=== PATIENT | male | born 1965 | race Caucasian/White ===

== ENCOUNTER → 2016-10-25 | Outpatient (CLI) | payer BC ==
[2016-10-25 14:21] LABS: ALBUMIN/GLOBULIN RATIO 1.11 (1.00-1.93); ALKALINE PHOSPHATASE 78 U/L (45-117); ALT/SGPT 46 U/L (12-78); ANION GAP 8 MEQ/L (8-16); AST/SGOT 31 U/L (15-37); BILIRUBIN,TOTAL 0.8 MG/DL (0.2-1.0); BLOOD UREA NITROGEN 16 MG/DL (7-18); CALCIUM LEVEL 9.2 MG/DL (8.5-10.1); CARBON DIOXIDE LEVEL 26 MEQ/L (21-32); CHLORIDE LEVEL 107 MEQ/L (98-107); CREATININE FOR GFR 1.04 MG/DL (0.70-1.30); GLOMERULAR FILTRATION RATE > 60.0 (>56); GLUCOSE, FASTING 93 MG/DL (70-105); POTASSIUM SERUM 4.3 MEQ/L (3.5-5.1); SODIUM LEVEL 141 MEQ/L (136-145); TOTAL PROTEIN 7.6 GM/DL (6.4-8.2)
[2016-10-25 14:27] LABS: BASO % 0.6 % (0.0-1.0); EOS # 0.3 K/mm3 (0.0-0.50); EOS % 3.7 % (0.0-3.0); LARGE UNSTAINED CELL # 0.3 K/mm3 (0.0-0.4); LARGE UNSTAINED CELL % 3.1 % (0.0-4.0); LYMPH % 25.3 % (24.0-44.0); MEAN CORPUSCULAR HEMOGLOBIN 31.5 pg (27.0-33.0); MEAN CORPUSCULAR HGB CONC 34.3 g/dl (32.0-36.5); MEAN CORPUSCULAR VOLUME 91.7 fl (80.0-96.0); MONO # 0.5 K/mm3 (0.0-0.8); MONO % 5.7 % (0.0-5.0); NEUTROPHILS % 61.6 % (36.0-66.0); PLATELET COUNT, AUTOMATED 283 k/mm3 (150-450); RED CELL DISTRIBUTION WIDTH 12.4 % (11.5-14.5); WHITE BLOOD COUNT 8.1 K/mm3 (4.0-10.0)
--- NOTE | 2016-10-25 15:07 | REP ---
ULTRASOUND RIGHT LOWER QUADRANT: Real-time sonographic evaluation of the right lower quadrant performed to evaluation for possible appendicitis. The appendix could not be visualized. Peristalsing bowel is seen in the right lower quadrant. No definite fluid collection is seen. IMPRESSION: The appendix could not be visualized. I cannot exclude appendicitis. If evaluation of the appendix is needed, then a CT scan of the abdomen and pelvis should be performed. Signed by Nirav Lopez MD 10/26/2016 12:39 P
== END ==
LOC: M LAB 13:30
PROVIDERS: ATTEND Physician Assistant
DX: R10.31 Right lower quadrant pain (principal)

== ENCOUNTER → 2016-10-26 | Outpatient (CLI) | payer BC ==
[~2016-10-26] MED LIST: GASTROGRAFIN SOLUTION 30ML (Q9963) As Ordered ONE; ISOVUE-370 76% 100ML VIAL (Q9967) As Ordered ONE
--- NOTE | 2016-10-26 12:33 | REP ---
CT study of the abdomen and pelvis with IV and oral contrast: History: Right lower quadrant pain. CT contrast dose: 100 ml of Isovue 370 is administered intravenously by auto injector. 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 The lung bases are essentially clear. No pleural effusion is seen. There is diffuse mild fatty infiltration of the liver with some fat sparing near the gallbladder. No focal hepatic lesion is seen. No adrenal lesion is observed. The spleen is unremarkable. No pancreatic or gallbladder abnormality is observed. The kidneys enhance symmetrically and are morphologically intact. No retroperitoneal mass or adenopathy is seen. A normal caliber aorta is seen. A normal appendix is seen coursing medially behind the cecum. Terminal ileum is unremarkable. There is diverticulosis affecting the sigmoid, descending and splenic flexure segments of the colon. There is no CT evidence of diverticulitis seen. Urinary bladder, prostate and seminal vesicles are unremarkable. Bone window settings demonstrate degenerative disc changes in the lumbar spine at 2-3 and 1-2 levels. No bony destructive lesion is appreciated. Impression: Left colonic diverticulosis without CT evidence of diverticulitis. Normal appendix seen. No acute intra-abdominal abnormality. Mild fatty infiltration of the liver. Signed by Anthony Fair MD 10/26/2016 07:25 P
== END ==
LOC: M RAD 09:14
PROVIDERS: ATTEND Physician Assistant
DX: R10.31 Right lower quadrant pain (principal); K57.30 Diverticulosis of large intestine without perforation or abscess without bleeding; K76.0 Fatty (change of) liver, not elsewhere classified
CPT/HCPCS: 74177; Q9963; Q9967

== ENCOUNTER → 2017-08-29 | Outpatient (CLI) | payer BC ==
--- NOTE | 2017-08-30 07:25 | REP ---
THORACIC SPINE: CLINICAL: Chronic back pain. TECHNIQUE: AP and lateral views of the thoracic spine. FINDINGS: Alignment and kyphosis maintained. Vertebral bodies intact. No acute fracture/compression injury or subluxation. No significant degenerative changes. IMPRESSION: Normal age appropriate thoracic spine radiograph series. Signed by Raymond Augustine MD 08/30/2017 07:41 A
--- NOTE | 2017-08-30 08:58 | REP ---
LUMBOSACRAL SPINE: CLINICAL: Chronic lower back pain. TECHNIQUE: AP lateral, bilateral oblique and coned down views of the lumbosacral spine. FINDINGS: Moderate to early advanced multilevel degenerative changes are appreciated. Findings include endplate sclerosis/heterogeneity with disc space narrowing as well as marginal spurring and hypertrophic facet changes. Alignment is maintained. There is no evidence for acute fracture/compression injury or subluxation. IMPRESSION: Moderate to early advanced multilevel degenerative changes. No acute fracture/compression injury or subluxation. Signed by Raymond Augustine MD 08/30/2017 07:41 A
== END ==
LOC: M ADAMS 15:32
PROVIDERS: ATTEND Physician Assistant Medical
DX: M51.37 Other intervertebral disc degeneration, lumbosacral region (principal); G89.29 Other chronic pain

== ENCOUNTER → 2017-09-25 | Outpatient (CLI) | payer BC | LOC: M CARPUL 14:45 | DX: R60.1 Generalized edema (principal); R94.31 Abnormal electrocardiogram [ECG] [EKG] | CPT/HCPCS: 93306 ==

== ENCOUNTER → 2018-01-23 | Outpatient (REF) | payer BC | LOC: M SFHCADAM 01-24 18:45 | DX: L08.9 Local infection of the skin and subcutaneous tissue, unspecified (principal) | CPT/HCPCS: 87186 ==

== ENCOUNTER → 2018-01-31 | Outpatient (CLI) | payer BC | LOC: M PAIN 09:30 | DX: M51.26 Other intervertebral disc displacement, lumbar region (principal); M54.16 Radiculopathy, lumbar region; M46.96 Unspecified inflammatory spondylopathy, lumbar region; E78.1 Pure hyperglyceridemia; E66.01 Morbid (severe) obesity due to excess calories; Z68.37 Body mass index [BMI] 37.0-37.9, adult; Z79.899 Other long term (current) drug therapy | CPT/HCPCS: G0463 ==

== ENCOUNTER → 2018-02-11 | Outpatient (CLI) | payer BC ==
[~2018-02-11] MED LIST changes: -GASTROGRAFIN SOLUTION 30ML (Q9963) As Ordered ONE; -ISOVUE-370 76% 100ML VIAL (Q9967) As Ordered ONE; +ISOVUE-M 300 61% 15ML VIAL (Q9967) As Ordered; +LIDOCAINE 1% SDV INJ 30 ML VIAL As Ordered; +diazePAM 5 MG TAB As Ordered; +methylPREDNISolone SUSP 40 MG/ML (DEPO-medrol) VIAL (J1030) As Ordered; +oxyCODONE 5MG TAB As Ordered
== END ==
LOC: M PAIN 08:45
DX: G89.29 Other chronic pain (principal); M51.16 Intervertebral disc disorders with radiculopathy, lumbar region; E78.1 Pure hyperglyceridemia; E66.01 Morbid (severe) obesity due to excess calories; Z68.37 Body mass index [BMI] 37.0-37.9, adult; Z79.899 Other long term (current) drug therapy
CPT/HCPCS: J1030

== ENCOUNTER → 2018-03-13 | Outpatient (CLI) | payer BC | LOC: M PAIN 08:45 | DX: M51.26 Other intervertebral disc displacement, lumbar region (principal); M54.16 Radiculopathy, lumbar region; M46.96 Unspecified inflammatory spondylopathy, lumbar region; E78.1 Pure hyperglyceridemia; E66.01 Morbid (severe) obesity due to excess calories; Z68.38 Body mass index [BMI] 38.0-38.9, adult; Z79.899 Other long term (current) drug therapy | CPT/HCPCS: G0463 ==

== ENCOUNTER → 2018-04-18 | Outpatient (CLI) | payer BC | LOC: M PAIN 08:30 | DX: M47.816 Spondylosis without myelopathy or radiculopathy, lumbar region (principal); M51.26 Other intervertebral disc displacement, lumbar region; E78.1 Pure hyperglyceridemia; Z79.899 Other long term (current) drug therapy | CPT/HCPCS: G0463 ==

== ENCOUNTER → 2018-05-07 | Outpatient (CLI) | payer BC | LOC: M PAIN 08:30 | DX: G89.29 Other chronic pain (principal); M51.16 Intervertebral disc disorders with radiculopathy, lumbar region; E78.1 Pure hyperglyceridemia; J30.2 Other seasonal allergic rhinitis; E66.01 Morbid (severe) obesity due to excess calories; Z68.35 Body mass index [BMI] 35.0-35.9, adult; Z79.899 Other long term (current) drug therapy | CPT/HCPCS: J1030 ==

== ENCOUNTER → 2018-05-23 | Outpatient (CLI) | payer BC | LOC: M PAIN 08:30 | DX: M47.816 Spondylosis without myelopathy or radiculopathy, lumbar region (principal); M51.26 Other intervertebral disc displacement, lumbar region; M54.16 Radiculopathy, lumbar region; E78.1 Pure hyperglyceridemia; J30.2 Other seasonal allergic rhinitis; E66.01 Morbid (severe) obesity due to excess calories; Z68.36 Body mass index [BMI] 36.0-36.9, adult; Z79.899 Other long term (current) drug therapy | CPT/HCPCS: G0463 ==

== ENCOUNTER → 2018-07-03 | Outpatient (CLI) | payer BC ==
[~2018-07-03] MED LIST changes: +BUPIVACAINE HCL 0.25% 30 ML VIAL As Ordered; -diazePAM 5 MG TAB As Ordered; -methylPREDNISolone SUSP 40 MG/ML (DEPO-medrol) VIAL (J1030) As Ordered; -oxyCODONE 5MG TAB As Ordered
== END ==
LOC: M PAIN 10:15
DX: G89.29 Other chronic pain (principal); M47.816 Spondylosis without myelopathy or radiculopathy, lumbar region; M47.817 Spondylosis without myelopathy or radiculopathy, lumbosacral region; E78.1 Pure hyperglyceridemia; J30.2 Other seasonal allergic rhinitis; Z79.899 Other long term (current) drug therapy
CPT/HCPCS: Q9967

== ENCOUNTER → 2018-07-24 | Outpatient (CLI) | payer BC | LOC: M PAIN 09:15 | DX: M47.816 Spondylosis without myelopathy or radiculopathy, lumbar region (principal); M47.817 Spondylosis without myelopathy or radiculopathy, lumbosacral region; E78.1 Pure hyperglyceridemia; J30.2 Other seasonal allergic rhinitis; Z79.899 Other long term (current) drug therapy | CPT/HCPCS: G0463 ==

== ENCOUNTER → 2018-08-19 | Outpatient (CLI) | payer BC | LOC: M PAIN 11:15 | DX: G89.29 Other chronic pain (principal); M47.816 Spondylosis without myelopathy or radiculopathy, lumbar region; M47.817 Spondylosis without myelopathy or radiculopathy, lumbosacral region; E78.1 Pure hyperglyceridemia; J30.2 Other seasonal allergic rhinitis; E66.01 Morbid (severe) obesity due to excess calories; Z68.36 Body mass index [BMI] 36.0-36.9, adult; Z79.899 Other long term (current) drug therapy | CPT/HCPCS: Q9967 ==

== ENCOUNTER → 2018-10-09 | Outpatient (CLI) | payer BC ==
[~2018-10-09] MED LIST changes: +ADVI200T PO; -BUPIVACAINE HCL 0.25% 30 ML VIAL As Ordered; -ISOVUE-M 300 61% 15ML VIAL (Q9967) As Ordered; -LIDOCAINE 1% SDV INJ 30 ML VIAL As Ordered; +LISI20TA3 PO; +MELO15TA28 PO; +[UNRECOGNIZED DRUG - CODE] PO; +[UNRECOGNIZED DRUG - OTHER] PO
--- NOTE | 2018-10-24 01:47 | ECWPNPC ---
PATIENT NAME: ROOSEVELT WATKINS : 1965 GENDER: MALE VISIT DATE: 10/09/2018 DISCHARGE DATE: 10/09/18 1123 VISIT LOCKED DATE TIME: PHYSICIAN: RITA ANNA RESOURCE: RITA ANNA REASON FOR APPOINTMENT 1. SW PT-POST PROC HISTORY OF PRESENT ILLNESS HISTORY OF PRESENT ILLNESS: HERE FOR POST PROCEDURE F/U.HAD RIGHT L4/5-L5/S1 DIAGNOSTIC BLOCK #2 ON 08-19-18.HAD APPROXIMATLEY 24HRS OF IMPROVEMENT POST PROCEDURE.RATING PAIN VAS 7/10.PAIN IS ACROSS LOW BACK AND DESCRIBED CONSTANT,ACHING AND STABBING. PAIN THE PATIENT DESCRIBES THE PAIN... FALL RISK SCREENING: SCREENING :NO FALLS IN THE PAST YEAR CURRENT MEDICATIONS TAKING LISINOPRIL-HYDROCHLOROTHIAZIDE 20-25 MG TABLET 1 TABLET ORALLY ONCE A DAY TAKING MELOXICAM 15 MG TABLET 1 TABLET ORALLY ONCE A DAY TAKING ADVIL 200 MG TABLET 2 TABLET WITH FOOD OR MILK NEEDED ORALLY BID MEDICATION LIST REVIEWED AND RECONCILED WITH THE PATIENT PAST MEDICAL HISTORY MORBID OBESITY 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, NL T SPINE 09/08 X RAYS 10/10 ECHO NL EF, TRACE MR, MILDLY DILATED LA, ELEVATED CVP, IVC MILDLY ENLARGED HYPERTRIGLYCERIDEMIA DDD HAYFEVER ALLERGIES ENVIRONMENTAL: NASAL CONGESTION, ITCHY EYES, SNEEZING: ALLERGY SURGICAL HISTORY X5 R KNEE ACL,ARTHROSCOPIC BACK INJECTIONS X3 FAMILY HISTORY FATHER: ALIVE 79 YRS, HTN, HEARING LOSS MOTHER: ALIVE 76 YRS, UNKNOWN SIBLINGS: ALIVE, YOUNGEST BROTHER - GB ISSUES YOUNGER BROTHER - MILD STROKE DAUGHTER(S): ALIVE, 11/12/1990 - HEALTHY 11/07/2001 - HEALTHY 2 BROTHER(S) . 2DAUGHTER(S) - HEALTHY. OLDEST DAUGHTER - CHRON'S DISEASE _ _HAD BOWEL RESECTION. SOCIAL HISTORY GENERAL: TOBACCO USE ARE YOU A:NONSMOKER LUNG CANCER SCREENING SMOKING STATUS:NON SMOKER BMI CARE GOAL FOLLOW-UP ABOVE NORMAL BMI FOLLOW-UPGIVING ENCOURAGEMENT TO EXERCISE ALCOHOL SCREENING DID YOU HAVE A DRINK CONTAINING ALCOHOL IN THE PAST YEAR?YES HOW OFTEN DID YOU HAVE SIX OR MORE DRINKS ON ONE OCCASION IN THE PAST YEAR?NEVER (0 POINTS) HOW MANY DRINKS DID YOU HAVE ON A TYPICAL DAY WHEN YOU WERE DRINKING IN THE PAST YEAR?3 OR 4 (1 POINT) HOW OFTEN DID YOU HAVE A DRINK CONTAINING ALCOHOL IN THE PAST YEAR?MONTHLY OR LESS (1 POINT) POINTS2 INTERPRETATIONNEGATIVE RECREATIONAL DRUG USE DRUG USE?NO CAFFEINE CAFFEINE USE?YES HOW OFTEN AND HOW MUCH? 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 MARITAL STATUS: . OTHERS AT HOME: NONE. PAIN CLINIC PFS, CLERGY, PUBLIC HEALTH REFERRALS PFS REFERRAL NEEDED?NO CLERGY REFERRAL NEEDED?NO PUBLIC HEALTH REFERRAL NEEDED?NO WAS THE PROVIDER NOTIFIED OF ANY PERTINENT INFO? N/A HAS THE PATIENT BEEN EDUCATED REGARDING HIS/HER PLAN OF CARE?YES USING HEATING PAD HAS THE PATIENT BEEN EDUCATED REGARDING PAIN, THE RISK FOR PAIN, THE IMPORTANCE OF EFFECTIVE PAIN MANAGEMENT, AND THE PAIN ASSESSMENT PROCESS?YES ADVANCE DIRECTIVE ADVANCE DIRECTIVE DISCUSSED WITH PATIENT:YES PT HAS NO ADVANCED DIRECTIVESM DECLINED INFORMATION, ASSISTANCE OFFERED IN FILLING HCP OUT, DECLINED LAS REVIEWED WITH PATIENT 07/24/18 0935 JSREVIEWED WITH PATIEBT 08/19/18 1211 LAS. HOSPITALIZATION/MAJOR DIAGNOSTIC PROCEDURE DENIES PAST HOSPITALIZATION REVIEW OF SYSTEMS REVIEWED BY: PROVIDER: RITA FLYNN . CONSTITUTIONAL: ANY CHANGE IN YOUR MEDICAL CONDITION? NO . CHILLS NO . FEVER NO . INFECTION: DO YOU HAVE NEW INFECTIONS? NO . DO YOU HAVE HISTORY OF MRSA? NO . MUSCULOSKELETAL: ANY NEW PATTERNS OF PAIN OR NUMBNESS? NO . GASTROENTEROLOGY: ANY NEW CHANGE IN BOWEL CONTROL? NO . GENITOURINARY: ANY NEW CHANGE IN BLADDER CONTROL? NO . IS THERE A CHANCE YOU COULD BE ? NO . HEMATOLOGY/LYMPH: DO YOU TAKE ANY BLOOD THINNERS? (FOR EXAMPLE- COUMADIN, PLAVIX, AGGRENOX, PLATEL, PRADAXA, OR XARELTO) NO . WHEN WAS YOUR LAST DOSE? DATE: TIME: . NEUROLOGY: HAVE YOU FALLEN IN THE PAST 12 MONTHS? NO . ANY NEW EXTREMITY NUMBNESS OR WEAKNESS? NO . CARDIOLOGY: DO YOU HAVE A PACEMAKER OR DEFIBRILLATOR? NO . RESPIRATORY: HAVE YOU BEEN SICK IN THE PAST WEEK? YES, STOMACHE BUG RESOLVED . FEVER NO . FLU LIKE SYMPTOMS? NO . COUGH NO . INTEGUMENTARY: DO YOU HAVE ANY RASHES OR OPEN SORES? NO . ALLERGIC/IMMUNO: ARE YOU ALLERGIC TO IV DYE? NO . ANY NEW ALLERGIES? NO . PSYCHIATRIC: DO YOU HAVE THOUGHTS OF HURTING YOURSELF OR SOMEONE ELSE? NO . ARE YOU ABUSED, NEGLECTED, OR IN AN UNSAFE ENVIRONMENT? NO . ENDOCRINOLOGY: ARE YOU DIABETIC? NO . OTHER: DO YOU NEED ANY PRESCRIPTIONS? NO . IF YES, PLEASE LIST: ____ . ANY NEW PROBLEMS WITH YOUR MEDICATIONS? NO . WHEN DID YOU LAST EAT? ____ . WHEN DID YOU LAST DRINK? ____ . WHAT DID YOU LAST DRINK? ____ . NAME OF PERSON DRIVING YOU HOME? ____ . DO YOU HAVE ANY OTHER QUESTIONS OR CONCERNS NO . VITAL SIGNS WT 262.6 LBS, HT 71", BMI 36.62 INDEX, BP 149/80 MM HG, HR 80 /MIN, RR 16 /MIN, TEMP 98.9 F, OXYGEN SAT % 96%, NA INITIALS SC 11:03. EXAMINATION GENERAL EXAMINATION: GENERAL APPEARANCE:AWAKE,ALERT ,PLEAASANT . PSYCHAFFECT NORMAL . LUNGS:LUNG LOPEZ ARE CLEAR TO AUSCULTATION BILATERALLY. GOOD MOVEMENT OF AIR . HEART:S1, S2 IN A REGULAR RATE AND RHYTHM. NO SIGNIFICANT MURMURS, RUBS OR GALLOPS NOTED . LUMBAR SACRAL SPINEPALPATION:TENDER OVER BILAT. L4/5-L5/S1 LUMBAR FACETS WITH FACET LOADING.. ASSESSMENTS OSTEOARTHRITIS OF SPINE WITH RADICULOPATHY, LUMBAR REGION - M47.26 (PRIMARY) TREATMENT OSTEOARTHRITIS OF SPINE WITH RADICULOPATHY, LUMBAR REGION NOTES: RIGHT L4/5-L5/S1 RF. PROCEDURE CODES FA211 ESTABILISHED PATIENT [facility]AC[facility] CHARGE DISPOSITION & COMMUNICATION FOLLOW UP POST (REASON: RIGHT L4/5-L5/S1 RF) ELECTRONICALLY SIGNED BY RINA WALLACE ON 10/23/2018 AT 03:59 PM EST DISCLAIMER : THIS IS A VISIT SUMMARY EXTRACTED FROM THE [employer] CHART. IT IS NOT A COPY OF THE [employer] PROGRESS NOTE. NATE
== END ==
LOC: M PAIN 10:45
PROVIDERS: ATTEND Nurse Practitioner Family
DX: M47.26 Other spondylosis with radiculopathy, lumbar region (principal); J30.2 Other seasonal allergic rhinitis; E66.01 Morbid (severe) obesity due to excess calories; Z68.36 Body mass index [BMI] 36.0-36.9, adult; Z79.899 Other long term (current) drug therapy

== ENCOUNTER 2018-10-10 07:14 | Day surgery (SDC) | payer BC ==
[~2018-10-10] VITALS: Ht 180.3 cm; Wt 122.5 kg
[~2018-10-10 07:14] MED LIST changes: +LIDOCAINE 2% INJ 100 MG/5 ML SDV (FOR ANES.) As Ordered ONE; +PROPOFOL 200 MG/20 ML VIAL As Ordered ONE
--- NOTE | 2018-10-10 08:46 | ROOR ---
Patient Name: Anthony Ellsworth Procedure Date: 10/10/2018 8:25 AM Date of : 1965 Age: 52 Room: [facility] Gender: Male Note Status: Finalized Procedure: Colonoscopy Indications: Screening for colorectal malignant neoplasm Providers: Michael PETTY MD Referring MD: LESLI Preciado Requesting Provider: Medicines: Monitored Anesthesia Care Complications: No immediate complications. Procedure: Pre-Anesthesia Assessment: - The heart rate, respiratory rate, oxygen saturations, blood pressure, adequacy of pulmonary ventilation, and response to care were monitored throughout the procedure. The Colonoscope was introduced through the anus and advanced to the terminal ileum, with identification of the appendiceal orifice and IC valve. The colonoscopy was performed without difficulty. The patient tolerated the procedure well. The quality of the bowel preparation was good. Findings: The perianal and digital rectal examinations were normal. Small Internal Hemorrhoids. The entire examined colon appeared normal on direct and retroflexion views. Impression: - Small Internal Hemorrhoids. - The entire examined colon is normal on direct and retroflexion views. - No specimens collected. Recommendation: - Repeat colonoscopy in 10 years for screening purposes. Michael Petty MD Michael PETTY MD 10/10/2018 8:45:56 AM This report has been signed electronically. Number of Addenda: 0 Note Initiated On: 10/10/2018 8:25 AM Estimated Blood Loss: Estimated blood loss: none.
[2018-10-10 09:10] VITALS: BP 128/82
[2018-10-10] MEDS ORDERED: NS 1,000 ML IV ONE (11:00)
== END 2018-10-10 09:16 | disposition home or self-care (01) ==
LOC: M OPP 07:14
PROVIDERS: ATTEND Internal Medicine Gastroenterology
DX: Z12.11 Encounter for screening for malignant neoplasm of colon (principal); K64.8 Other hemorrhoids; I10 Essential (primary) hypertension; Z79.899 Other long term (current) drug therapy

== ENCOUNTER → 2018-10-30 | Outpatient (CLI) | payer BC ==
[~2018-10-30] MED LIST changes: +BUPIVACAINE HCL 0.25% 30 ML VIAL As Ordered ONE; +LIDOCAINE 1% SDV INJ 30 ML VIAL As Ordered ONE; -LIDOCAINE 2% INJ 100 MG/5 ML SDV (FOR ANES.) As Ordered ONE; -PROPOFOL 200 MG/20 ML VIAL As Ordered ONE; +TRIAMCINOLONE ACETONIDE SUSP 40 MG/ML VIAL (J3301) As Ordered ONE
--- NOTE | 2018-11-08 23:47 | ECWPNPC ---
PATIENT NAME: ROOSEVELT WATKINS : 1965 GENDER: MALE VISIT DATE: 10/30/2018 DISCHARGE DATE: 10/30/18 1232 VISIT LOCKED DATE TIME: PHYSICIAN: MAISHA KOHLI MD RESOURCE: MAISHA KOHLI MD REASON FOR APPOINTMENT 1. RIGHT L4/5-L5/S1 RF HISTORY OF PRESENT ILLNESS HISTORY OF PRESENT ILLNESS: PAIN THE PATIENT DESCRIBES THE PAIN... FALL RISK SCREENING: SCREENING :NO FALLS IN THE PAST YEAR CURRENT MEDICATIONS TAKING ADVIL 200 MG TABLET 2 TABLET WITH FOOD OR MILK NEEDED ORALLY BID, NOTES: NONE IN A WEEK TAKING FUROSEMIDE 20 MG TABLET 1 TABLET ORALLY ONCE A DAY, NOTES: NOT STARTED YET TAKING LISINOPRIL-HYDROCHLOROTHIAZIDE 20-25 MG TABLET 1 TABLET ORALLY ONCE A DAY, NOTES: 10/30/18 0630 TAKING MELOXICAM 15 MG TABLET 1 TABLET ORALLY ONCE A DAY, NOTES: 10/29/18 0300 MEDICATION LIST REVIEWED AND RECONCILED WITH THE PATIENT PAST MEDICAL HISTORY MORBID OBESITY 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, NL T SPINE 09/08 X RAYS 10/10 ECHO NL EF, TRACE MR, MILDLY DILATED LA, ELEVATED CVP, IVC MILDLY ENLARGED HYPERTRIGLYCERIDEMIA DDD HAYFEVER ALLERGIES ENVIRONMENTAL: NASAL CONGESTION, ITCHY EYES, SNEEZING: ALLERGY SURGICAL HISTORY X5 R KNEE ACL,ARTHROSCOPIC BACK INJECTIONS X3 COLONOSCOPY 10/11/18 FAMILY HISTORY FATHER: ALIVE 79 YRS, HTN, HEARING LOSS, DIAGNOSED WITH HYPERTENSION MOTHER: ALIVE 76 YRS, UNKNOWN SIBLINGS: ALIVE, YOUNGEST BROTHER - GB ISSUES YOUNGER BROTHER - MILD STROKE DAUGHTER(S): ALIVE, 11/12/1990 - HEALTHY 11/07/2001 - HEALTHY MATERNAL AUNT: DIAGNOSED WITH CANCER 2 BROTHER(S) . 2DAUGHTER(S) - HEALTHY. OLDEST DAUGHTER - CHRON'S DISEASE _ _HAD BOWEL RESECTION. SOCIAL HISTORY GENERAL: TOBACCO USE ARE YOU A:NONSMOKER LUNG CANCER SCREENING SMOKING STATUS:NON SMOKER BMI CARE GOAL FOLLOW-UP ABOVE NORMAL BMI FOLLOW-UPGIVING ENCOURAGEMENT TO EXERCISE ALCOHOL SCREENING DID YOU HAVE A DRINK CONTAINING ALCOHOL IN THE PAST YEAR?YES HOW OFTEN DID YOU HAVE SIX OR MORE DRINKS ON ONE OCCASION IN THE PAST YEAR?NEVER (0 POINTS) HOW MANY DRINKS DID YOU HAVE ON A TYPICAL DAY WHEN YOU WERE DRINKING IN THE PAST YEAR?3 OR 4 (1 POINT) HOW OFTEN DID YOU HAVE A DRINK CONTAINING ALCOHOL IN THE PAST YEAR?MONTHLY OR LESS (1 POINT) POINTS2 INTERPRETATIONNEGATIVE RECREATIONAL DRUG USE DRUG USE?NO CAFFEINE CAFFEINE USE?YES HOW OFTEN AND HOW MUCH? OCCASIONALLY SEXUAL HX HAD SEX IN THE LAST 12 MONTHS (VAGINAL, ORAL, OR ANAL)?YES WITHWOMEN ONLY USE PROTECTION?NO HAVE YOU EVER HAD AN STD?NO HIV / HEP-C SCREENING HIV TEST OFFERED TO PATIENT:YES DATE OFFERED:08/29/2017 TEST ACCEPTED:NO HEP-C TEST OFFERED TO PATIENT:YES DATE OFFERED:08/29/2017 REASON:PATIENT DECLINED PREVIOUSLY DONE TEST ACCEPTED:NO PREVIOUSLY DONE REASON:PATIENT DECLINED BROCHURE PROVIDED TO PATIENTYES WORSHIP [id number] JAINISM LANGUAGE LANGUAGES SPOKEN:[place] EDUCATION LEVEL OF EDUCATION:HIGH SCHOOL LEARNING BARRIERS / SPECIAL NEEDS BARRIERS TO LEARNING?NO HEARING IMPAIRED?NO VISION IMPAIRED?YES COGNITIVELY IMPAIRED?NO : CORRECTIVE LENSES FOR READING READINESS TO LEARN?YES LEARNING PREFERENCES?NO SPECIAL DEVICES?NO NAUMKEAG OPERATOR NEEDED?NO DOMESTIC VIOLENCE DO YOU FEEL SAFE IN YOUR ENVIRONMENT?YES 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 MARITAL STATUS: . OTHERS AT HOME: NONE. PAIN CLINIC PFS, CLERGY, PUBLIC HEALTH REFERRALS PFS REFERRAL NEEDED?NO CLERGY REFERRAL NEEDED?NO PUBLIC HEALTH REFERRAL NEEDED?NO WAS THE PROVIDER NOTIFIED OF ANY PERTINENT INFO? N/A HAS THE PATIENT BEEN EDUCATED REGARDING HIS/HER PLAN OF CARE?YES USING HEATING PAD HAS THE PATIENT BEEN EDUCATED REGARDING PAIN, THE RISK FOR PAIN, THE IMPORTANCE OF EFFECTIVE PAIN MANAGEMENT, AND THE PAIN ASSESSMENT PROCESS?YES ADVANCE DIRECTIVE ADVANCE DIRECTIVE DISCUSSED WITH PATIENT:YES PT HAS NO ADVANCED DIRECTIVESM DECLINED INFORMATION, ASSISTANCE OFFERED IN FILLING HCP OUT, DECLINED BV 10/30/18 REVIEWED WITH PATIENT 07/24/18 0935 JSREVIEWED WITH PATIEBT 08/19/18 1211 LASREVIEWED WITH PATIENT 10/30/18 0959 BV. HOSPITALIZATION/MAJOR DIAGNOSTIC PROCEDURE NO HOSPITALIZATION HISTORY. REVIEW OF SYSTEMS REVIEWED BY: PROVIDER: . CONSTITUTIONAL: ANY CHANGE IN YOUR MEDICAL CONDITION? NO . CHILLS NO . FEVER NO . INFECTION: DO YOU HAVE NEW INFECTIONS? NO . DO YOU HAVE HISTORY OF MRSA? NO . MUSCULOSKELETAL: ANY NEW PATTERNS OF PAIN OR NUMBNESS? NO . GASTROENTEROLOGY: ANY NEW CHANGE IN BOWEL CONTROL? NO . GENITOURINARY: ANY NEW CHANGE IN BLADDER CONTROL? NO . IS THERE A CHANCE YOU COULD BE ? NO . HEMATOLOGY/LYMPH: DO YOU TAKE ANY BLOOD THINNERS? (FOR EXAMPLE- COUMADIN, PLAVIX, AGGRENOX, PLATEL, PRADAXA, OR XARELTO) NO . WHEN WAS YOUR LAST DOSE? DATE: TIME: . NEUROLOGY: HAVE YOU FALLEN IN THE PAST 12 MONTHS? NO . ANY NEW EXTREMITY NUMBNESS OR WEAKNESS? NO . CARDIOLOGY: DO YOU HAVE A PACEMAKER OR DEFIBRILLATOR? NO . RESPIRATORY: HAVE YOU BEEN SICK IN THE PAST WEEK? NO . FEVER NO . FLU LIKE SYMPTOMS? NO . COUGH NO . INTEGUMENTARY: DO YOU HAVE ANY RASHES OR OPEN SORES? NO . ALLERGIC/IMMUNO: ARE YOU ALLERGIC TO IV DYE? NO . ANY NEW ALLERGIES? NO . PSYCHIATRIC: DO YOU HAVE THOUGHTS OF HURTING YOURSELF OR SOMEONE ELSE? NO . ARE YOU ABUSED, NEGLECTED, OR IN AN UNSAFE ENVIRONMENT? NO . ENDOCRINOLOGY: ARE YOU DIABETIC? NO . OTHER: DO YOU NEED ANY PRESCRIPTIONS? NO . IF YES, PLEASE LIST: ____ . ANY NEW PROBLEMS WITH YOUR MEDICATIONS? NO . WHEN DID YOU LAST EAT? 10/29/18 1800 . WHEN DID YOU LAST DRINK? 10/30/18 0630 . WHAT DID YOU LAST DRINK? WATER . NAME OF PERSON DRIVING YOU HOME? RAVEN . DO YOU HAVE ANY OTHER QUESTIONS OR CONCERNS NO . VITAL SIGNS WT 266.2 LBS, HT 71", BMI 37.12 INDEX, BP 175/93 MM HG, HR 73 /MIN, RR 18 /MIN, TEMP 96.7 F, OXYGEN SAT % 98%, NA INITIALS SC 09:49, REVIEWED BY: BV. ASSESSMENTS SPONDYLOSIS OF LUMBAR REGION WITHOUT MYELOPATHY OR RADICULOPATHY - M47.816 (PRIMARY) SPONDYLOSIS OF LUMBOSACRAL REGION WITHOUT MYELOPATHY OR RADICULOPATHY - M47.817 PROCEDURES PN RADIOFREQUENCY PRE PROCEDURE DIAGNOSES 1. LUMBAR SPONDYLOSIS. 2. LUMBOSACRAL SPONDYLOSIS POST PROCEDURE DIAGNOSES 1. LUMBAR SPONDYLOSIS. 2. LUMBOSACRAL SPONDYLOSIS PROCEDURE RIGHT L4-L5 AND RIGHT L5-S1 LUMBAR FACET RADIOFREQUENCY SURGEON DR. MAISHA KOHLI CAUSTIC PUMP OPERATOR NONE ANESTHESIA LOCAL PRE PROCEDURE REPORT THE PATIENT HAS HISTORY OF CHRONIC LOW BACK PAIN. I EVALUATE THE PATIENT AND REVIEWED THE CHART. I WENT OVER THE RISKS, ALTERNATIVES, AND BENEFITS ASSOCIATED WITH THIS PROCEDURE. THE PATIENT WOULD LIKE TO PROCEED AND GIVE CONSENT TO PERFORMED THE PROCEDURE. THE PATIENT DENIES UNEXPLAINABLE WEIGHT LOSS, FEVER, CHILLS, OR NEW CHANGES IN URINARY OR BOWEL CONTROL DESCRIPTION OF PROCEDURE THE PATIENT WAS BROUGHT TO THE PROCEDURE ROOM AND PLACED IN THE PRONE POSITION. THE LUMBOSACRAL AREA WAS CLEANED WITH CHLORAPREP SOLUTION AND DRAPED ASEPTICALLY. THE PROCEDURE WAS DONE UNDER STERILE CONDITIONS. I CHECKED LATERALITY AND THE LEVEL WHERE THE PROCEDURE WAS GOING TO BE PERFORMED WITH THE PATIENT AND THE SUPPORTING STAFF AT THE MOMENT OF THE TIME OUT IN THE PROCEDURE ROOM. UNDER FLUOROSCOPIC GUIDANCE, TARGETS WERE SELECTED AT THE INTERSECTION OF THE RIGHT TRANSVERSE PROCESS OF L4, L5 AND ALA OF S1 WITH ITS RESPECTIVE SUPERIOR ARTICULAR PROCESS. LIDOCAINE WAS USED TO NUMB THE SKIN AND THE SUBCUTANEOUS TISSUE BELOW IT. RADIOFREQUENCY NEEDLES 22-GAUGE 15 CM LONG WITH 10 MM ACTIVE CURVE TIP WERE ADVANCED UNDER FLUOROSCOPIC GUIDANCE AND FOLLOWING PATIENT FEEDBACK UNTIL THE TARGET AREA WAS REACHED. POSITION OF THE NEEDLES WAS VERIFIED WITH AP AND LATERAL VIEWS. AFTER PROPER POSITION OF THE NEEDLE WAS ACHIEVED, WE WORKED WITH THE RIGHT SELECTED MEDIAN BRANCHES OF L3, L4 AND THE DORSAL RAMI OF L5. WE MEASURED THE CORRESPONDING IMPEDANCES, SENSORY STIMULATION AND MOTOR RESPONSES INDICATED IN THE RADIOFREQUENCY WORKSHEET. POSITION OF THE NEEDLES WAS VERIFIED AGAIN WITH AP AND LATERAL VIEWS. LIDOCAINE 1%, 2 ML, WAS INJECTED AT EACH LEVEL. RADIOFREQUENCY WAS DONE AT EACH LEVEL AT 80 DEGREES FOR 90 SECONDS. AFTER RADIOFREQUENCY WAS DONE, THE PATIENT RECEIVED BUPIVACAINE 0.125% 1 CC WITH KENALOG 5 MG AT EACH SITE. THERE WAS NO EVIDENCE OF BLOOD, PARESTHESIA OR CEREBROSPINAL FLUID DURING THE PROCEDURE. THE PATIENT WAS SENT TO THE RECOVERY ROOM. THE PATIENT WAS MOVING THE EXTREMITIES AND DOING WELL. THERE WAS NO COMPLICATION DURING THE PROCEDURE. FLUOROSCOPY TIME WAS 33 SECONDS POST PROCEDURE NOTE THE PATIENT WILL BE SEEN IN A FOLLOW UP IN THE NEXT FEW WEEKS. INSTRUCTIONS WERE GIVEN, QUESTIONS WERE ANSWERED, AND THE PATIENT EXPRESSED UNDERSTANDING AND AGREES WITH THE PLAN. I, JEAN-PAUL PAULSON, DOCUMENTED THE ABOVE INFORMATION ACTING A SCRIBE FOR DR. KOHLI. I HAVE REVIEWED THE ABOVE DOCUMENT, WRITTEN BY JEAN-PAUL BAEZIBKeith AND I VERIFY THAT IT IS ACCURATE. DIAGNOSTIC IMAGING [facility] FLUORO GUIDE SPINE INJECTION (PAIN)[id number] PROCEDURE CODES 6045F RADXPS IN END [id number] PXD 31002 DESTROY LUMB/SAC F[place], [place]: [place] [address] DESTROY L/S FACET JNT ADDL, MODIFIERS: RT DISPOSITION & COMMUNICATION FOLLOW UP 3 WEEKS ELECTRONICALLY SIGNED BY MAISHA KOHLI MD, MD ON 11/08/2018 AT 07:30 PM EST DISCLAIMER : THIS IS A VISIT SUMMARY EXTRACTED FROM THE [employer] CHART. IT IS NOT A COPY OF THE [employer] PROGRESS NOTE. MTDD
== END ==
LOC: M PAIN 10:00
PROVIDERS: ATTEND Anesthesiology
DX: M47.816 Spondylosis without myelopathy or radiculopathy, lumbar region (principal); M47.817 Spondylosis without myelopathy or radiculopathy, lumbosacral region; E66.01 Morbid (severe) obesity due to excess calories; E78.1 Pure hyperglyceridemia; J30.1 Allergic rhinitis due to pollen; Z79.1 Long term (current) use of non-steroidal anti-inflammatories (NSAID); Z79.899 Other long term (current) drug therapy; Z68.37 Body mass index [BMI] 37.0-37.9, adult
CPT/HCPCS: 64635; 64636; J3301

== ENCOUNTER → 2018-10-30 | Outpatient (REF) | payer BC ==
[~2018-10-30] MED LIST changes: -BUPIVACAINE HCL 0.25% 30 ML VIAL As Ordered ONE; -LIDOCAINE 1% SDV INJ 30 ML VIAL As Ordered ONE; -TRIAMCINOLONE ACETONIDE SUSP 40 MG/ML VIAL (J3301) As Ordered ONE
[2018-10-30 13:00] LABS: BASO # 0.1 10^3/uL (0.0-0.2); BASO % 0.7 % (0.0-1.0); EOS # 0.4 10^3/uL (0.0-0.50); HEMATOCRIT 43.1 % (42.0-52.0); HEMOGLOBIN 14.5 g/dl (13.5-17.5); LYMPH # 2.6 10^3/uL (1.5-4.5); LYMPH % 29.6 % (24.0-44.0); MEAN CORPUSCULAR HGB CONC 33.6 g/dl (32.0-36.5); MEAN CORPUSCULAR VOLUME 92.3 fl (80.0-96.0); MONO # 0.7 10^3/uL (0.0-0.8); MONO % 8.4 % (0.0-5.0); NEUTROPHILS # 4.8 10^3/uL (1.8-7.7); NEUTROPHILS % 55.4 % (36.0-66.0); PLATELET COUNT, AUTOMATED 315 10^3/uL (150-450); RED BLOOD COUNT 4.67 10^6/uL (4.30-6.10); WHITE BLOOD COUNT 8.7 10^3/uL (4.0-10.0)
[2018-10-30 13:18] LABS: ALBUMIN 3.8 GM/DL (3.2-5.2); ALT/SGPT 41 U/L (12-78); BILIRUBIN,TOTAL 0.7 MG/DL (0.2-1.0); BLOOD UREA NITROGEN 19 MG/DL (7-18); CALCIUM LEVEL 9.5 MG/DL (8.5-10.1); CARBON DIOXIDE LEVEL 29 MEQ/L (21-32); CHLORIDE LEVEL 104 MEQ/L (98-107); CHOLESTEROL LEVEL 164 MG/DL (<200); CREATININE FOR GFR 1.14 MG/DL (0.70-1.30); GLOMERULAR FILTRATION RATE > 60.0 (>56); GLUCOSE, FASTING 95 MG/DL (70-100); HDL CHOLESTEROL 31 MG/DL (>40); NON-HDL-C 133 MG/DL; POTASSIUM SERUM 4.8 MEQ/L (3.5-5.1); SODIUM LEVEL 139 MEQ/L (136-145); TOTAL PROTEIN 7.1 GM/DL (6.4-8.2); TRIGLYCERIDES LEVEL 602 MG/DL (<150)
--- NOTE | 2018-10-30 16:28 | REP ---
Partial lumbar spine series: Six views . History: Injection procedure for pain. 33 seconds of fluoroscopy time is reported. Findings: A sequence of six fluoroscopically obtained last image hold procedural spot radiographs of the lumbar spine document needle position and contrast injection associated with injection procedure. Electronically Signed by Anthony Fair MD 10/30/2018 04:19 P
== END ==
LOC: M SFHCADAM 07:37
PROVIDERS: ATTEND Physician Assistant Medical
DX: I10 Essential (primary) hypertension (principal); M47.26 Other spondylosis with radiculopathy, lumbar region; E66.01 Morbid (severe) obesity due to excess calories

== ENCOUNTER → 2018-11-13 | Outpatient (CLI) | payer BC ==
--- NOTE | 2018-11-29 02:20 | ECWPNPC ---
PATIENT NAME: ROOSEVELT WATKINS : 1965 GENDER: MALE VISIT DATE: 11/13/2018 DISCHARGE DATE: 11/13/18 1237 VISIT LOCKED DATE TIME: PHYSICIAN: RITA ANNA RESOURCE: RITA ANNA REASON FOR APPOINTMENT 1. POST RF HISTORY OF PRESENT ILLNESS HISTORY OF PRESENT ILLNESS: HERE FOR POST PROEDURE F/U.HAD RIGHT RF ON 10/30/18.REPORTING MARKED IMPROVEMENT IN RIGHT LOW BACK PAIN.HAVING PERSISTENT LEFT LOW BACK PAIN.RATING PAIN VAS 7/10. PAIN THE PATIENT DESCRIBES THE PAIN... FALL RISK SCREENING: SCREENING : NO FALLS IN THE PAST YEAR. 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, NL T SPINE 09/08 X RAYS 10/10 ECHO NL EF, TRACE MR, MILDLY DILATED LA, ELEVATED CVP, IVC MILDLY ENLARGED HYPERTRIGLYCERIDEMIA DDD HAYFEVER ALLERGIES ENVIRONMENTAL: NASAL CONGESTION, ITCHY EYES, SNEEZING: ALLERGY SURGICAL HISTORY X5 R KNEE ACL,ARTHROSCOPIC BACK INJECTIONS X3 COLONOSCOPY 10/11/18 FAMILY HISTORY FATHER: ALIVE 79 YRS, HTN, HEARING LOSS, DIAGNOSED WITH HYPERTENSION MOTHER: ALIVE 76 YRS, UNKNOWN SIBLINGS: ALIVE, YOUNGEST BROTHER - GB ISSUES YOUNGER BROTHER - MILD STROKE DAUGHTER(S): ALIVE, 11/12/1990 - HEALTHY 11/07/2001 - HEALTHY MATERNAL AUNT: DIAGNOSED WITH CANCER 2 BROTHER(S) . 2DAUGHTER(S) - HEALTHY. OLDEST DAUGHTER - CHRON'S DISEASE _ _HAD BOWEL RESECTION. SOCIAL HISTORY GENERAL: TOBACCO USE ARE YOU A:NONSMOKER LUNG CANCER SCREENING SMOKING STATUS:NON SMOKER BMI CARE GOAL FOLLOW-UP ABOVE NORMAL BMI FOLLOW-UPGIVING ENCOURAGEMENT TO EXERCISE ALCOHOL SCREENING DID YOU HAVE A DRINK CONTAINING ALCOHOL IN THE PAST YEAR?YES HOW OFTEN DID YOU HAVE SIX OR MORE DRINKS ON ONE OCCASION IN THE PAST YEAR?NEVER (0 POINTS) HOW MANY DRINKS DID YOU HAVE ON A TYPICAL DAY WHEN YOU WERE DRINKING IN THE PAST YEAR?3 OR 4 (1 POINT) HOW OFTEN DID YOU HAVE A DRINK CONTAINING ALCOHOL IN THE PAST YEAR?MONTHLY OR LESS (1 POINT) POINTS2 INTERPRETATIONNEGATIVE RECREATIONAL DRUG USE DRUG USE?NO CAFFEINE CAFFEINE USE?YES HOW OFTEN AND HOW MUCH? OCCASIONALLY SEXUAL HX HAD SEX IN THE LAST 12 MONTHS (VAGINAL, ORAL, OR ANAL)?YES WITHWOMEN ONLY USE PROTECTION?NO HAVE YOU EVER HAD AN STD?NO HIV / HEP-C SCREENING HIV TEST OFFERED TO PATIENT:YES DATE OFFERED:08/29/2017 TEST ACCEPTED:NO HEP-C TEST OFFERED TO PATIENT:YES DATE OFFERED:08/29/2017 REASON:PATIENT DECLINED PREVIOUSLY DONE TEST ACCEPTED:NO PREVIOUSLY DONE REASON:PATIENT DECLINED BROCHURE PROVIDED TO PATIENTYES [employer] [id number] [employer] LANGUAGE LANGUAGES SPOKEN:SINGAPOREAN EDUCATION LEVEL OF EDUCATION:HIGH SCHOOL LEARNING BARRIERS / SPECIAL NEEDS BARRIERS TO LEARNING?NO HEARING IMPAIRED?NO VISION IMPAIRED?YES COGNITIVELY IMPAIRED?NO : CORRECTIVE LENSES FOR READING READINESS TO LEARN?YES LEARNING PREFERENCES?NO SPECIAL DEVICES?NO SHIP BOSS NEEDED?NO DOMESTIC VIOLENCE DO YOU FEEL SAFE IN YOUR ENVIRONMENT?YES 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 MARITAL STATUS: . OTHERS AT HOME: NONE. PAIN CLINIC PFS, CLERGY, PUBLIC HEALTH REFERRALS PFS REFERRAL NEEDED?NO CLERGY REFERRAL NEEDED?NO PUBLIC HEALTH REFERRAL NEEDED?NO WAS THE PROVIDER NOTIFIED OF ANY PERTINENT INFO? N/A HAS THE PATIENT BEEN EDUCATED REGARDING HIS/HER PLAN OF CARE?YES USING HEATING PAD HAS THE PATIENT BEEN EDUCATED REGARDING PAIN, THE RISK FOR PAIN, THE IMPORTANCE OF EFFECTIVE PAIN MANAGEMENT, AND THE PAIN ASSESSMENT PROCESS?YES ADVANCE DIRECTIVE ADVANCE DIRECTIVE DISCUSSED WITH PATIENT:YES PT HAS NO ADVANCED DIRECTIVESM DECLINED INFORMATION, ASSISTANCE OFFERED IN FILLING HCP OUT, DECLINED REVIEWED WITH PATIENT 07/24/18 0935 JSREVIEWED WITH PATIEBT 08/19/18 1211 LASREVIEWED WITH PATIENT 10/30/18 0959 BV. HOSPITALIZATION/MAJOR DIAGNOSTIC PROCEDURE DENIES PAST HOSPITALIZATION REVIEW OF SYSTEMS REVIEWED BY: PROVIDER: RITA FLYNN . CONSTITUTIONAL: ANY CHANGE IN YOUR MEDICAL CONDITION? NO . CHILLS NO . FEVER NO . INFECTION: DO YOU HAVE NEW INFECTIONS? NO . DO YOU HAVE HISTORY OF MRSA? NO . MUSCULOSKELETAL: ANY NEW PATTERNS OF PAIN OR NUMBNESS? NO . GASTROENTEROLOGY: ANY NEW CHANGE IN BOWEL CONTROL? NO . GENITOURINARY: ANY NEW CHANGE IN BLADDER CONTROL? NO . IS THERE A CHANCE YOU COULD BE ? NO . HEMATOLOGY/LYMPH: DO YOU TAKE ANY BLOOD THINNERS? (FOR EXAMPLE- COUMADIN, PLAVIX, AGGRENOX, PLATEL, PRADAXA, OR XARELTO) NO . WHEN WAS YOUR LAST DOSE? DATE: TIME: . NEUROLOGY: HAVE YOU FALLEN IN THE PAST 12 MONTHS? NO . ANY NEW EXTREMITY NUMBNESS OR WEAKNESS? NO . CARDIOLOGY: DO YOU HAVE A PACEMAKER OR DEFIBRILLATOR? NO . RESPIRATORY: HAVE YOU BEEN SICK IN THE PAST WEEK? NO . FEVER NO . FLU LIKE SYMPTOMS? NO . COUGH NO . INTEGUMENTARY: DO YOU HAVE ANY RASHES OR OPEN SORES? NO . ALLERGIC/IMMUNO: ARE YOU ALLERGIC TO IV DYE? NO . ANY NEW ALLERGIES? NO . PSYCHIATRIC: DO YOU HAVE THOUGHTS OF HURTING YOURSELF OR SOMEONE ELSE? NO . ARE YOU ABUSED, NEGLECTED, OR IN AN UNSAFE ENVIRONMENT? NO . ENDOCRINOLOGY: ARE YOU DIABETIC? NO . OTHER: DO YOU NEED ANY PRESCRIPTIONS? NO . IF YES, PLEASE LIST: ____ . ANY NEW PROBLEMS WITH YOUR MEDICATIONS? NO . WHEN DID YOU LAST EAT? ____ . WHEN DID YOU LAST DRINK? ____ . WHAT DID YOU LAST DRINK? ____ . NAME OF PERSON DRIVING YOU HOME? ____ . DO YOU HAVE ANY OTHER QUESTIONS OR CONCERNS NO . VITAL SIGNS WT 260.4 LBS, HT 71", BMI 36.31 INDEX, BP 139/87 MM HG, HR 112 /MIN, RR 18 /MIN, TEMP 97.1 F, OXYGEN SAT % 95%, NA INITIALS SC 11:59, REVIEWED BY: EM. EXAMINATION GENERAL EXAMINATION: GENERAL APPEARANCE:AWAKE,ALERT ,PLEAASANT . PSYCHAFFECT NORMAL . LUNGS:LUNG LOPEZ ARE CLEAR TO AUSCULTATION BILATERALLY. GOOD MOVEMENT OF AIR . HEART:S1, S2 IN A REGULAR RATE AND RHYTHM. NO SIGNIFICANT MURMURS, RUBS OR GALLOPS NOTED . LUMBAR SACRAL SPINEPALPATION:TENDER OVER LEFT L4/5-L5/S1 LUMBAR FACETS WITH FACET LOADING. . ASSESSMENTS SPONDYLOSIS OF LUMBAR REGION WITHOUT MYELOPATHY OR RADICULOPATHY - M47.816 (PRIMARY) TREATMENT SPONDYLOSIS OF LUMBAR REGION WITHOUT MYELOPATHY OR RADICULOPATHY NOTES: LEFT #2 DIAGNOSTIC BLOCK L4/5-L5/S1. PROCEDURE CODES FA211 ESTABILISHED PATIENT [facility] CHARGE DISPOSITION & COMMUNICATION FOLLOW UP POST (REASON: LEFT #2 DIAGNOSTIC BLOCK L4/5-L5/S1) ELECTRONICALLY SIGNED BY RINA WALLACE ON 11/28/2018 AT 01:17 PM EST DISCLAIMER : THIS IS A VISIT SUMMARY EXTRACTED FROM THE [employer] CHART. IT IS NOT A COPY OF THE [employer] PROGRESS NOTE. NATE
== END ==
LOC: M PAIN 11:45
PROVIDERS: ATTEND Nurse Practitioner Family
DX: M47.816 Spondylosis without myelopathy or radiculopathy, lumbar region (principal); E78.1 Pure hyperglyceridemia; J30.89 Other allergic rhinitis; Z79.899 Other long term (current) drug therapy

== ENCOUNTER → 2018-12-04 | Outpatient (CLI) | payer BC ==
[~2018-12-04] MED LIST changes: +BUPIVACAINE HCL 0.25% 30 ML VIAL As Ordered ONE; +ISOVUE-M 300 61% 15ML VIAL (Q9967) As Ordered ONE; +LIDOCAINE 1% SDV INJ 30 ML VIAL As Ordered ONE
--- NOTE | 2018-12-04 14:19 | REP ---
FLUOROSCOPIC GUIDANCE FOR LEFT LUMBAR FACET BLOCK: 12/04/2018 CLINICAL HISTORY: Low back pain. FINDINGS: Two images from C-arm fluoroscopy provided to Dr. Delgado of the pain clinic show needles overlying the three lowermost facets in the lumbosacral spine on the left. Contrast adjacent to the needles. Fluoroscopy time: 24.7 seconds. Electronically Signed by Bo Haile MD 12/04/2018 07:50 P
--- NOTE | 2018-12-17 00:25 | ECWPNPC ---
PATIENT NAME: ROOSEVELT WATKINS : 1965 GENDER: MALE VISIT DATE: 12/04/2018 DISCHARGE DATE: 12/04/18 1226 VISIT LOCKED DATE TIME: PHYSICIAN: MAISHA KOHLI MD RESOURCE: MAISHA KOHLI MD REASON FOR APPOINTMENT 1. LEFT #2 DIAGNOSTIC BLOCK L4/5-L5/S1 HISTORY OF PRESENT ILLNESS HISTORY OF PRESENT ILLNESS: PAIN THE PATIENT DESCRIBES THE PAIN... FALL RISK SCREENING: SCREENING : NO FALLS IN THE PAST YEAR. CURRENT MEDICATIONS TAKING ADVIL 200 MG TABLET 2 TABLET WITH FOOD OR MILK NEEDED ORALLY BID, NOTES: NONE IN A WEEK TAKING FUROSEMIDE 20 MG TABLET 1 TABLET ORALLY ONCE A DAY, NOTES: 12/04/18914 TAKING LISINOPRIL-HYDROCHLOROTHIAZIDE 20-25 MG TABLET 1 TABLET ORALLY ONCE A DAY, NOTES: 12/04/18914 TAKING MELOXICAM 15 MG TABLET 1 TABLET ORALLY ONCE A DAY, NOTES: NONE IN A FEW DAYS TAKING LIPO-FLAVONOID PLUS - TABLET 2 CAP ORALLY DAILY, NOTES: NONE IN A WEEK MEDICATION LIST REVIEWED AND RECONCILED WITH THE PATIENT PAST MEDICAL HISTORY MORBID OBESITY 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 2DAUGHTER(S) - HEALTHY. OLDEST DAUGHTER - CHRON'S DISEASE _ _HAD BOWEL RESECTION. SOCIAL HISTORY GENERAL: TOBACCO USE ARE YOU A:NONSMOKER LATEX QUESTIONNAIRE LATEX ALLERGY : HAVE YOU EVER DEVELOPED ANY TYPE OF REACTION AFTER HANDLING LATEX PRODUCTS SUCH RUBBER GLOVES, CONDOMS, DIAPHRAGMS, BALLOONS, SOCKS, OR UNDERWEAR?NO LATEX ALLERGY : HAVE YOU EVER DEVELOPED ANY TYPE OF REACTION DURING OR AFTER DENTAL APPOINTMENT, VAGINAL/RECTAL EXAMINATION, SURGICAL PROCEDURE, OR ANY OTHER EXPOSURE?NO LATEX RISK : HAVE YOU EVER HAD ANY DIFFICULTY BREATHING OR HIVES AFTER EATING OR HANDLING ANY FRUITS, OR VEGETABLES; SUCH KIWI, BANANAS, STONE FRUITS, OR CHESTNUTSNO LATEX RISK : DO YOU HAVE A PREVIOUS PERSONAL HISTORY OF MORE THAN NINE SURGERIES, SPINA BIFIDA, OR REPEATED CATHERTIZATIONS? NO LATEX RISK : ARE YOU FREQUENTLY EXPOSED TO LATEX PRODUCTS IN YOUR OCCUPATION?NO DATE ASKED : 12/04/2018 LUNG CANCER SCREENING SMOKING STATUS:NON SMOKER BMI CARE GOAL FOLLOW-UP ABOVE NORMAL BMI FOLLOW-UPGIVING ENCOURAGEMENT TO EXERCISE ALCOHOL SCREENING DID YOU HAVE A DRINK CONTAINING ALCOHOL IN THE PAST YEAR?YES HOW OFTEN DID YOU HAVE SIX OR MORE DRINKS ON ONE OCCASION IN THE PAST YEAR?NEVER (0 POINTS) HOW MANY DRINKS DID YOU HAVE ON A TYPICAL DAY WHEN YOU WERE DRINKING IN THE PAST YEAR?3 OR 4 (1 POINT) HOW OFTEN DID YOU HAVE A DRINK CONTAINING ALCOHOL IN THE PAST YEAR?MONTHLY OR LESS (1 POINT) POINTS2 INTERPRETATIONNEGATIVE RECREATIONAL DRUG USE DRUG USE?NO CAFFEINE CAFFEINE USE?YES HOW OFTEN AND HOW MUCH? 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 MARITAL STATUS: . OTHERS AT HOME: NONE. PAIN CLINIC PFS, CLERGY, PUBLIC HEALTH REFERRALS PFS REFERRAL NEEDED?NO CLERGY REFERRAL NEEDED?NO PUBLIC HEALTH REFERRAL NEEDED?NO WAS THE PROVIDER NOTIFIED OF ANY PERTINENT INFO? N/A HAS THE PATIENT BEEN EDUCATED REGARDING HIS/HER PLAN OF CARE?YES USING HEATING PAD HAS THE PATIENT BEEN EDUCATED REGARDING PAIN, THE RISK FOR PAIN, THE IMPORTANCE OF EFFECTIVE PAIN MANAGEMENT, AND THE PAIN ASSESSMENT PROCESS?YES ADVANCE DIRECTIVE ADVANCE DIRECTIVE DISCUSSED WITH PATIENT:YES PT HAS NO ADVANCED DIRECTIVESM DECLINED INFORMATION, ASSISTANCE OFFERED IN FILLING HCP OUT, DECLINED 12/04/18 REVIEWED WITH PATIENT 07/24/18 0935 JSREVIEWED WITH PATIEBT 08/19/18 1211 LASREVIEWED WITH PATIENT 10/30/18 0959 BVREVIEWED WITH PT 12/04/18 1128 BV. HOSPITALIZATION/MAJOR DIAGNOSTIC PROCEDURE NO HOSPITALIZATION HISTORY. REVIEW OF SYSTEMS REVIEWED BY: PROVIDER: . CONSTITUTIONAL: ANY CHANGE IN YOUR MEDICAL CONDITION? NO . CHILLS NO . FEVER NO . INFECTION: DO YOU HAVE NEW INFECTIONS? NO . DO YOU HAVE HISTORY OF MRSA? NO . MUSCULOSKELETAL: ANY NEW PATTERNS OF PAIN OR NUMBNESS? NO . GASTROENTEROLOGY: ANY NEW CHANGE IN BOWEL CONTROL? NO . GENITOURINARY: ANY NEW CHANGE IN BLADDER CONTROL? NO . IS THERE A CHANCE YOU COULD BE ? NO . HEMATOLOGY/LYMPH: DO YOU TAKE ANY BLOOD THINNERS? (FOR EXAMPLE- COUMADIN, PLAVIX, AGGRENOX, PLATEL, PRADAXA, OR XARELTO) NO . WHEN WAS YOUR LAST DOSE? DATE: TIME: . NEUROLOGY: HAVE YOU FALLEN IN THE PAST 12 MONTHS? NO . ANY NEW EXTREMITY NUMBNESS OR WEAKNESS? NO . CARDIOLOGY: DO YOU HAVE A PACEMAKER OR DEFIBRILLATOR? NO . RESPIRATORY: HAVE YOU BEEN SICK IN THE PAST WEEK? NO . FEVER NO . FLU LIKE SYMPTOMS? NO . COUGH NO . INTEGUMENTARY: DO YOU HAVE ANY RASHES OR OPEN SORES? NO . ALLERGIC/IMMUNO: ARE YOU ALLERGIC TO IV DYE? NO . ANY NEW ALLERGIES? NO . PSYCHIATRIC: DO YOU HAVE THOUGHTS OF HURTING YOURSELF OR SOMEONE ELSE? NO . ARE YOU ABUSED, NEGLECTED, OR IN AN UNSAFE ENVIRONMENT? NO . ENDOCRINOLOGY: ARE YOU DIABETIC? NO . OTHER: DO YOU NEED ANY PRESCRIPTIONS? NO . IF YES, PLEASE LIST: ____ . ANY NEW PROBLEMS WITH YOUR MEDICATIONS? NO . WHEN DID YOU LAST EAT? 12/03/18 1800 . WHEN DID YOU LAST DRINK? 12/04/18 0915 . WHAT DID YOU LAST DRINK? WATER . NAME OF PERSON DRIVING YOU HOME? RAVEN . DO YOU HAVE ANY OTHER QUESTIONS OR CONCERNS NO . VITAL SIGNS WT 261.2 LBS, HT 71", BMI 36.43 INDEX, BP 145/86 MM HG, HR 74 /MIN, RR 16 /MIN, TEMP 98.6 F, OXYGEN SAT % 98%, NA INITIALS SC 11:06, REVIEWED BY: BV. ASSESSMENTS SPONDYLOSIS OF LUMBAR REGION WITHOUT MYELOPATHY OR RADICULOPATHY - M47.816 (PRIMARY) SPONDYLOSIS OF LUMBOSACRAL REGION WITHOUT MYELOPATHY OR RADICULOPATHY - M47.817 TREATMENT SPONDYLOSIS OF LUMBAR REGION WITHOUT MYELOPATHY OR RADICULOPATHY SMC FACET BLOCK (PAIN)[id number] PROCEDURES PN LUMBAR FACET BLOCK DIAGNOSTIC PRE PROCEDURE DIAGNOSIS LUMBAR SPONDYLOSIS, LUMBOSACRAL SPONDYLOSIS POST PROCEDURE DIAGNOSIS LUMBAR SPONDYLOSIS, LUMBOSACRAL SPONDYLOSIS PROCEDURE LEFT L4-L5 AND LEFT L5-S1 FACET BLOCK DIAGNOSTIC NUMBER [address] MAISHA KOHLI PIPE AND TEST SUPERVISOR NONE ANESTHESIA LOCAL PRE PROCEDURE NOTE THE PATIENT WITH HISTORY OF CHRONIC LOW BACK PAIN. I EVALUATED THE PATIENT AND REVIEWED THE CHART. I WENT OVER THE RISKS, ALTERNATIVES, AND BENEFITS ASSOCIATED WITH THIS PROCEDURE. THE PATIENT WOULD LIKE TO PROCEED AND GAVE CONSENT TO PERFORM THE PROCEDURE. AGREED WITH THE PATIENT WE ARE DOING THIS PROCEDURE TO DETERMINE IF THE PATIENT IS A CANDIDATE FOR A RADIOFREQUENCY ABLATION OF THE FACETS JOINTS. THE PATIENT DENIES UNEXPLAINABLE WEIGHT LOSS, FEVER, CHILLS, OR NEW CHANGES IN URINARY OR BOWEL CONTROL DESCRIPTION OF PROCEDURE THE PATIENT WAS BROUGHT TO THE PROCEDURE ROOM AND PLACED IN THE PRONE POSITION. THE LUMBOSACRAL AREA WAS CLEANED WITH CHLORAPREP SOLUTION AND DRAPED ASEPTICALLY. THE PROCEDURE WAS DONE UNDER STERILE CONDITIONS. I CHECKED LATERALITY AND THE LEVEL WHERE THE PROCEDURE WAS GOING TO BE PERFORMED WITH THE PATIENT AND THE SUPPORTING STAFF AT THE MOMENT OF THE TIME OUT IN THE PROCEDURE ROOM. UNDER FLUOROSCOPIC GUIDANCE, TARGETS WERE SELECTED AT THE INTERSECTION OF THE LEFT TRANSVERSE PROCESS OF L4, L5 AND ALA OF S1 WITH ITS RESPECTIVE SUPERIOR ARTICULAR PROCESS. LIDOCAINE WAS USED TO NUMB THE SKIN AND THE SUBCUTANEOUS TISSUE BELOW IT. SPINAL NEEDLE, 22-GAUGE WAS ADVANCED UNDER FLUOROSCOPIC GUIDANCE AND FOLLOWING PATIENT FEEDBACK UNTIL THE TARGETS WERE REACHED. POSITION OF THE NEEDLES WAS VERIFIED WITH AP AND LATERAL VIEWS. AFTER PROPER POSITION OF THE NEEDLES WAS ACHIEVED, ISOVUE-M DYE 30% 0.1 ML WAS INJECTED AT EACH SITE SHOWING ADEQUATE SPREAD OF THE DYE. THEN A SOLUTION OF 0.4 ML OF BUPIVACAINE 0.25% WAS INJECTED AT EACH SITE. THERE WAS NO EVIDENCE OF BLOOD, PARESTHESIA OR CEREBROSPINAL FLUID DURING THE PROCEDURE. THE PATIENT WAS SENT TO THE RECOVERY ROOM. THE PATIENT WAS MOVING THE EXTREMITIES AND DOING WELL. THERE WAS NO COMPLICATION DURING THE PROCEDURE. FLUOROSCOPY TIME WAS 25 SECONDS POST PROCEDURE NOTE THE PATIENT WILL DOCUMENT HIS PAIN LEVEL AND RESPONSE TO THIS PROCEDURE EVERY 30 MINUTES. THE PATIENT WILL BE SEEN IN A FOLLOW UP IN THE NEXT FEW WEEKS. FURTHER DETERMINATION FOR HIS CASE WILL BE DONE AT THE NEXT VISIT. INSTRUCTIONS WERE GIVEN, QUESTIONS WERE ANSWERED, AND THE PATIENT EXPRESSED UNDERSTANDING AND AGREED WITH THE PLAN. I, JEAN-PAUL PAULSON, DOCUMENTED THE ABOVE INFORMATION ACTING A SCRIBE FOR DR. KOHLI. I HAVE REVIEWED THE ABOVE DOCUMENT, WRITTEN BY JEAN-PAUL PAULSON SCRIBE AND I VERIFY THAT IT IS ACCURATE. PROCEDURE CODES 6045F RADXPS IN END [id number] PXD [id number] INJ PARAVERT F JNT L/S 1 LEV, [place]: [place] [id number] INJ PARAVERT F JNT L/S 2 LEV, MODIFIERS: LT DISPOSITION & COMMUNICATION FOLLOW UP 3 WEEKS ELECTRONICALLY SIGNED BY MAISHA KOHLI MD, MD ON 12/16/2018 AT 11:26 AM EDT DISCLAIMER : THIS IS A VISIT SUMMARY EXTRACTED FROM THE [employer] CHART. IT IS NOT A COPY OF THE [employer] PROGRESS NOTE. MTDD
== END ==
LOC: M PAIN 11:15
PROVIDERS: ATTEND Anesthesiology
DX: M47.816 Spondylosis without myelopathy or radiculopathy, lumbar region (principal); M47.817 Spondylosis without myelopathy or radiculopathy, lumbosacral region; E66.01 Morbid (severe) obesity due to excess calories; Z68.36 Body mass index [BMI] 36.0-36.9, adult; E78.1 Pure hyperglyceridemia; J30.1 Allergic rhinitis due to pollen; Z79.1 Long term (current) use of non-steroidal anti-inflammatories (NSAID); Z79.899 Other long term (current) drug therapy
CPT/HCPCS: 64493; 64494; Q9967

== ENCOUNTER → 2019-01-09 | Outpatient (CLI) | payer BC ==
[~2019-01-09] MED LIST changes: -BUPIVACAINE HCL 0.25% 30 ML VIAL As Ordered ONE; -ISOVUE-M 300 61% 15ML VIAL (Q9967) As Ordered ONE; -LIDOCAINE 1% SDV INJ 30 ML VIAL As Ordered ONE
--- NOTE | 2019-01-14 02:11 | ECWPNPC ---
PATIENT NAME: ROOSEVELT WATKINS : 1965 GENDER: MALE VISIT DATE: 01/09/2019 DISCHARGE DATE: 01/09/19 1119 VISIT LOCKED DATE TIME: PHYSICIAN: NARGIS TRONCOSO RESOURCE: NARGIS TRONCOSO REASON FOR APPOINTMENT 1. POST FB HISTORY OF PRESENT ILLNESS HISTORY OF PRESENT ILLNESS: PAIN THE PATIENT DESCRIBES THE PAIN... 53 YR OLD MALE HERE TO F/U AFTER 2ND DIAGNOSTIC BLOCK ON LEFT SIDE. PATIENT SAYS HE HAS HAND TWO WEEKS OF PAIN REDUCTION. THE FIRST 12 HOURS IS PAIN SCORE 0-1.TODAY IS PAIN IS BACK TO 4/10. FALL RISK SCREENING: SCREENING :NO FALLS REPORTED IN THE LAST YEAR CURRENT MEDICATIONS TAKING ADVIL 200 MG TABLET 2 TABLET WITH FOOD OR MILK NEEDED ORALLY BID, NOTES: NONE IN A WEEK TAKING FUROSEMIDE 20 MG TABLET 1 TABLET ORALLY ONCE A DAY, NOTES: 12/04/18914 TAKING LISINOPRIL-HYDROCHLOROTHIAZIDE 20-25 MG TABLET 1 TABLET ORALLY ONCE A DAY, NOTES: 12/04/18914 TAKING MELOXICAM 15 MG TABLET 1 TABLET ORALLY ONCE A DAY, NOTES: NONE IN A FEW DAYS TAKING LIPO-FLAVONOID PLUS - TABLET 2 CAP ORALLY DAILY, NOTES: NONE IN A WEEK MEDICATION LIST REVIEWED AND RECONCILED WITH THE PATIENT PAST MEDICAL HISTORY MORBID OBESITY 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 2DAUGHTER(S) - HEALTHY. OLDEST DAUGHTER - CHRON\\'S DISEASE _ _HAD BOWEL RESECTION. SOCIAL HISTORY GENERAL: TOBACCO USE ARE YOU A:NONSMOKER LATEX QUESTIONNAIRE LATEX ALLERGY : HAVE YOU EVER DEVELOPED ANY TYPE OF REACTION AFTER HANDLING LATEX PRODUCTS SUCH RUBBER GLOVES, CONDOMS, DIAPHRAGMS, BALLOONS, SOCKS, OR UNDERWEAR?NO LATEX ALLERGY : HAVE YOU EVER DEVELOPED ANY TYPE OF REACTION DURING OR AFTER DENTAL APPOINTMENT, VAGINAL/RECTAL EXAMINATION, SURGICAL PROCEDURE, OR ANY OTHER EXPOSURE?NO LATEX RISK : HAVE YOU EVER HAD ANY DIFFICULTY BREATHING OR HIVES AFTER EATING OR HANDLING ANY FRUITS, OR VEGETABLES; SUCH KIWI, BANANAS, STONE FRUITS, OR CHESTNUTSNO LATEX RISK : DO YOU HAVE A PREVIOUS PERSONAL HISTORY OF MORE THAN NINE SURGERIES, SPINA BIFIDA, OR REPEATED CATHERTIZATIONS? NO LATEX RISK : ARE YOU FREQUENTLY EXPOSED TO LATEX PRODUCTS IN YOUR OCCUPATION?NO DATE ASKED : 01/09/2019 LUNG CANCER SCREENING SMOKING STATUS:NON SMOKER BMI CARE GOAL FOLLOW-UP ABOVE NORMAL BMI FOLLOW-UPGIVING ENCOURAGEMENT TO EXERCISE ALCOHOL SCREENING DID YOU HAVE A DRINK CONTAINING ALCOHOL IN THE PAST YEAR?YES HOW OFTEN DID YOU HAVE SIX OR MORE DRINKS ON ONE OCCASION IN THE PAST YEAR?NEVER (0 POINTS) HOW MANY DRINKS DID YOU HAVE ON A TYPICAL DAY WHEN YOU WERE DRINKING IN THE PAST YEAR?3 OR 4 (1 POINT) HOW OFTEN DID YOU HAVE A DRINK CONTAINING ALCOHOL IN THE PAST YEAR?MONTHLY OR LESS (1 POINT) POINTS2 INTERPRETATIONNEGATIVE RECREATIONAL DRUG USE DRUG USE?NO CAFFEINE CAFFEINE USE?YES HOW OFTEN AND HOW MUCH? OCCASIONALLY SEXUAL HX HAD SEX IN THE LAST 12 MONTHS (VAGINAL, ORAL, OR ANAL)?YES WITHWOMEN ONLY USE PROTECTION?NO HAVE YOU EVER HAD AN STD?NO HIV / HEP-C SCREENING HIV TEST OFFERED TO PATIENT:YES DATE OFFERED:08/29/2017 TEST ACCEPTED:NO HEP-C TEST OFFERED TO PATIENT:YES DATE OFFERED:08/29/2017 REASON:PATIENT DECLINED PREVIOUSLY DONE TEST ACCEPTED:NO PREVIOUSLY DONE REASON:PATIENT DECLINED BROCHURE PROVIDED TO PATIENTYES RELIGIOUS [id number] PRESYBETERIAN LANGUAGE LANGUAGES SPOKEN:PORTUGUESE EDUCATION LEVEL OF EDUCATION:HIGH SCHOOL LEARNING BARRIERS / SPECIAL NEEDS BARRIERS TO LEARNING?NO HEARING IMPAIRED?NO VISION IMPAIRED?YES COGNITIVELY IMPAIRED?NO : CORRECTIVE LENSES FOR READING READINESS TO LEARN?YES LEARNING PREFERENCES?NO SPECIAL DEVICES?NO MANAGER PAYER NEEDED?NO DOMESTIC VIOLENCE DO YOU FEEL SAFE IN YOUR ENVIRONMENT?YES 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 MARITAL STATUS: . OTHERS AT HOME: NONE. PAIN CLINIC PFS, CLERGY, PUBLIC HEALTH REFERRALS PFS REFERRAL NEEDED?NO CLERGY REFERRAL NEEDED?NO PUBLIC HEALTH REFERRAL NEEDED?NO WAS THE PROVIDER NOTIFIED OF ANY PERTINENT INFO? N/A HAS THE PATIENT BEEN EDUCATED REGARDING HIS/HER PLAN OF CARE?YES USING HEATING PAD HAS THE PATIENT BEEN EDUCATED REGARDING PAIN, THE RISK FOR PAIN, THE IMPORTANCE OF EFFECTIVE PAIN MANAGEMENT, AND THE PAIN ASSESSMENT PROCESS?YES ADVANCE DIRECTIVE ADVANCE DIRECTIVE DISCUSSED WITH PATIENT:YES PT HAS NO ADVANCED DIRECTIVESM DECLINED INFORMATION, ASSISTANCE OFFERED IN FILLING HCP OUT, DECLINED 12/04/18 REVIEWED WITH PATIENT 07/24/18 0935 JSREVIEWED WITH PATIEBT 08/19/18 1211 LASREVIEWED WITH PATIENT 10/30/18 0959 BVREVIEWED WITH PT 12/04/18 1128 BV. HOSPITALIZATION/MAJOR DIAGNOSTIC PROCEDURE NO HOSPITALIZATION HISTORY. REVIEW OF SYSTEMS REVIEWED BY: PROVIDER: VLADIMIR . CONSTITUTIONAL: ANY CHANGE IN YOUR MEDICAL CONDITION? NO . CHILLS NO . FEVER NO . INFECTION: DO YOU HAVE NEW INFECTIONS? NO . DO YOU HAVE HISTORY OF MRSA? NO . MUSCULOSKELETAL: ANY NEW PATTERNS OF PAIN OR NUMBNESS? NO . GASTROENTEROLOGY: ANY NEW CHANGE IN BOWEL CONTROL? NO . GENITOURINARY: ANY NEW CHANGE IN BLADDER CONTROL? NO . IS THERE A CHANCE YOU COULD BE ? NO . HEMATOLOGY/LYMPH: DO YOU TAKE ANY BLOOD THINNERS? (FOR EXAMPLE- COUMADIN, PLAVIX, AGGRENOX, PLATEL, PRADAXA, OR XARELTO) YES . WHEN WAS YOUR LAST DOSE? DATE: TIME: . NEUROLOGY: HAVE YOU FALLEN IN THE PAST 12 MONTHS? YES . ANY NEW EXTREMITY NUMBNESS OR WEAKNESS? NO . CARDIOLOGY: DO YOU HAVE A PACEMAKER OR DEFIBRILLATOR? NO . RESPIRATORY: HAVE YOU BEEN SICK IN THE PAST WEEK? NO . FEVER NO . FLU LIKE SYMPTOMS? NO . COUGH NO . INTEGUMENTARY: DO YOU HAVE ANY RASHES OR OPEN SORES? NO . ALLERGIC/IMMUNO: ARE YOU ALLERGIC TO IV DYE? NO . ANY NEW ALLERGIES? NO . PSYCHIATRIC: DO YOU HAVE THOUGHTS OF HURTING YOURSELF OR SOMEONE ELSE? NO . ARE YOU ABUSED, NEGLECTED, OR IN AN UNSAFE ENVIRONMENT? NO . ENDOCRINOLOGY: ARE YOU DIABETIC? YES . OTHER: DO YOU NEED ANY PRESCRIPTIONS? YES . IF YES, PLEASE LIST: ____PERCOCET . ANY NEW PROBLEMS WITH YOUR MEDICATIONS? NO . WHEN DID YOU LAST EAT? ____ . WHEN DID YOU LAST DRINK? ____ . WHAT DID YOU LAST DRINK? ____ . NAME OF PERSON DRIVING YOU HOME? ____ . DO YOU HAVE ANY OTHER QUESTIONS OR CONCERNS NO . VITAL SIGNS WT 261 LBS, HT 71", BMI 36.40 INDEX, BP 153/78 MM HG, HR 73 /MIN, RR 16 /MIN, TEMP 98.0 F, OXYGEN SAT % 94%, SAFE IN ENV? (Y/N) YES, NA INITIALS AW 0956, REVIEWED BY: MITESH. EXAMINATION GENERAL EXAMINATION: GENERAL APPEARANCE:NO ACUTE DISTRESS, WELL NOURISHED AND HYDRATED. PSYCHAPPROPRIATE MOOD AND AFFECT . LUNGS:CLEAR TO AUSCULTATION BILATERALLY, NO WHEEZES, RHONCHI, RALES. HEART:NO MURMURS, REGULAR RATE AND RHYTHM. BACK: NO SCARS OR LESIONS NORMAL ALIGNMENT FROM PAIN WITH EXTENSION AND ROTATION OF LUMBAR SPINE SLR NEG BILAT REFLEXES 2+. ASSESSMENTS DEGENERATIVE DISC DISEASE, LUMBAR - M51.36 (PRIMARY) LUMBAR FACET ARTHROPATHY - M46.96 LUMBAR RADICULOPATHY - M54.16 TREATMENT DEGENERATIVE DISC DISEASE, LUMBAR CLINICAL NOTES: RF LEFT SIDE. PROCEDURE CODES FA211 ESTABILISHED PATIENT [facility] FACILITY CHARGE DISPOSITION & COMMUNICATION FOLLOW UP POST PROCEDURE (REASON: RF LEFT SIDE) ELECTRONICALLY SIGNED BY RINA BARBOZA ON 01/12/2019 AT 01:33 PM EDT DISCLAIMER : THIS IS A VISIT SUMMARY EXTRACTED FROM THE [employer] CHART. IT IS NOT A COPY OF THE [employer] PROGRESS NOTE. NATE
== END ==
LOC: M PAIN 09:45
PROVIDERS: ATTEND Nurse Practitioner Family
DX: M51.36 Other intervertebral disc degeneration, lumbar region (principal); M46.96 Unspecified inflammatory spondylopathy, lumbar region; M54.16 Radiculopathy, lumbar region; E78.1 Pure hyperglyceridemia; Z79.1 Long term (current) use of non-steroidal anti-inflammatories (NSAID); Z79.899 Other long term (current) drug therapy

== ENCOUNTER → 2019-03-11 | Outpatient (CLI) | payer BC ==
[~2019-03-11] MED LIST changes: +BUPIVACAINE HCL 0.25% 30 ML VIAL As Ordered ONE; +LIDOCAINE 1% SDV INJ 30 ML VIAL As Ordered ONE; +TRIAMCINOLONE ACETONIDE SUSP 40 MG/ML VIAL (J3301) As Ordered ONE
--- NOTE | 2019-03-12 10:11 | REP ---
Partial lumbar spine series: Four views . History: Injection procedure for pain. 42 seconds of fluoroscopy time is reported. Findings: A sequence of for fluoroscopically obtained last image hold procedural spot radiographs of the lumbar spine document needle position and contrast injection associated with injection procedure. Electronically Signed by Anthony Fair MD 03/12/2019 10:02 A
--- NOTE | 2019-03-23 00:25 | ECWPNPC ---
PATIENT NAME: ROOSEVELT WATKINS : 1965 GENDER: MALE VISIT DATE: 03/11/2019 DISCHARGE DATE: 03/11/19 1708 VISIT LOCKED DATE TIME: PHYSICIAN: MAISHA KOHLI MD RESOURCE: MAISHA KOHLI MD REASON FOR APPOINTMENT 1. RF LEFT SIDE HISTORY OF PRESENT ILLNESS HISTORY OF PRESENT ILLNESS: PAIN THE PATIENT DESCRIBES THE PAIN... FALL RISK SCREENING: SCREENING :NO FALLS REPORTED IN THE LAST YEAR CURRENT MEDICATIONS TAKING ADVIL 200 MG TABLET 2 TABLET WITH FOOD OR MILK NEEDED ORALLY BID, NOTES: NONE RECENT TAKING FUROSEMIDE 20 MG TABLET 1 TABLET ORALLY ONCE A DAY, NOTES: 03/10 230 TAKING LISINOPRIL-HYDROCHLOROTHIAZIDE 20-25 MG TABLET 1 TABLET ORALLY ONCE A DAY, NOTES: 03/11 930 TAKING MELOXICAM 15 MG TABLET 1 TABLET ORALLY ONCE A DAY, NOTES: 03/10 230 TAKING LIPO-FLAVONOID PLUS - TABLET 2 CAP ORALLY DAILY, NOTES: NONE RECENT MEDICATION LIST REVIEWED AND RECONCILED WITH THE PATIENT PAST MEDICAL HISTORY MORBID OBESITY 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, NL T SPINE 09/08 X RAYS 10/10 ECHO NL EF, TRACE MR, MILDLY DILATED LA, ELEVATED CVP, IVC MILDLY ENLARGED HYPERTRIGLYCERIDEMIA DDD HAYFEVER ESSENTIAL HYPERTENSION CHRONIC VENOUS ISUFFICIENCY ALLERGIES ENVIRONMENTAL: NASAL CONGESTION, ITCHY EYES, SNEEZING - ALLERGY SURGICAL HISTORY X5 R KNEE ACL,ARTHROSCOPIC BACK INJECTIONS X3 COLONOSCOPY 10/11/18 FAMILY HISTORY FATHER: ALIVE 79 YRS, HTN, HEARING LOSS, DIAGNOSED WITH HYPERTENSION MOTHER: ALIVE 76 YRS, UNKNOWN SIBLINGS: ALIVE, YOUNGEST BROTHER - GB ISSUES YOUNGER BROTHER - MILD STROKE DAUGHTER(S): ALIVE, 11/12/1990 - HEALTHY 11/07/2001 - HEALTHY MATERNAL AUNT: CANCER 2 BROTHER(S) . 2DAUGHTER(S) - HEALTHY. OLDEST DAUGHTER - CHRON\\'S DISEASE _ _HAD BOWEL RESECTION. SOCIAL HISTORY GENERAL: TOBACCO USE ARE YOU A:NONSMOKER HIV / HEP-C SCREENING HIV TEST OFFERED TO PATIENT:YES DATE OFFERED:08/29/2017 TEST ACCEPTED:NO HEP-C TEST OFFERED TO PATIENT:YES DATE OFFERED:08/29/2017 REASON:PATIENT DECLINED PREVIOUSLY DONE TEST ACCEPTED:NO PREVIOUSLY DONE REASON:PATIENT DECLINED BROCHURE PROVIDED TO PATIENTYES OTHERS AT HOME: NONE. EDUCATION LEVEL OF EDUCATION:HIGH SCHOOL DIET: REGULAR. LANGUAGE LANGUAGES SPOKEN:BRITISH DOMESTIC VIOLENCE DO YOU FEEL SAFE IN YOUR ENVIRONMENT?YES BMI CARE GOAL FOLLOW-UP ABOVE NORMAL BMI FOLLOW-UPGIVING ENCOURAGEMENT TO EXERCISE RECREATIONAL DRUG USE DRUG USE?NO EXERCISE: WALKS, BIKES, BODY BUILD. LEARNING BARRIERS / SPECIAL NEEDS BARRIERS TO LEARNING?NO HEARING IMPAIRED?NO VISION IMPAIRED?YES : CORRECTIVE LENSES FOR READING COGNITIVELY IMPAIRED?NO READINESS TO LEARN?YES LEARNING PREFERENCES?NO LEARNING CAPABILITIES PRESENT?YES EMOTIONAL BARRIERS?NO SPECIAL DEVICES?NO COMPUTER RECYCLING WORKER NEEDED?NO LUNG CANCER SCREENING SMOKING STATUS:NON SMOKER PAIN CLINIC PFS, CLERGY, PUBLIC HEALTH REFERRALS PFS REFERRAL NEEDED?NO CLERGY REFERRAL NEEDED?NO PUBLIC HEALTH REFERRAL NEEDED?NO WAS THE PROVIDER NOTIFIED OF ANY PERTINENT INFO? N/A HAS THE PATIENT BEEN EDUCATED REGARDING HIS/HER PLAN OF CARE?YES USING HEATING PAD HAS THE PATIENT BEEN EDUCATED REGARDING PAIN, THE RISK FOR PAIN, THE IMPORTANCE OF EFFECTIVE PAIN MANAGEMENT, AND THE PAIN ASSESSMENT PROCESS?YES LATEX QUESTIONNAIRE LATEX ALLERGY : HAVE YOU EVER DEVELOPED ANY TYPE OF REACTION AFTER HANDLING LATEX PRODUCTS SUCH RUBBER GLOVES, CONDOMS, DIAPHRAGMS, BALLOONS, SOCKS, OR UNDERWEAR?NO LATEX ALLERGY : HAVE YOU EVER DEVELOPED ANY TYPE OF REACTION DURING OR AFTER DENTAL APPOINTMENT, VAGINAL/RECTAL EXAMINATION, SURGICAL PROCEDURE, OR ANY OTHER EXPOSURE?NO LATEX RISK : HAVE YOU EVER HAD ANY DIFFICULTY BREATHING OR HIVES AFTER EATING OR HANDLING ANY FRUITS, OR VEGETABLES; SUCH KIWI, BANANAS, STONE FRUITS, OR CHESTNUTSNO LATEX RISK : DO YOU HAVE A PREVIOUS PERSONAL HISTORY OF MORE THAN NINE SURGERIES, SPINA BIFIDA, OR REPEATED CATHERTIZATIONS? NO LATEX RISK : ARE YOU FREQUENTLY EXPOSED TO LATEX PRODUCTS IN YOUR OCCUPATION?NO DATE ASKED : 03/11/2019 CAFFEINE CAFFEINE USE?YES HOW OFTEN AND HOW MUCH? OCCASIONALLY ADVANCE DIRECTIVE ADVANCE DIRECTIVE DISCUSSED WITH PATIENT:YES 03/11/19 PT DOES NOT HAVE ANY ADVANCED DIRECTIVES AND HE DECLINES INFORMATION ON HCP AT THIS TIME. AD BAPTIST [id number] SHINTO MARITAL STATUS: . 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 SEXUAL HX HAD SEX IN THE LAST 12 MONTHS (VAGINAL, ORAL, OR ANAL)?YES WITHWOMEN ONLY USE PROTECTION?NO HAVE YOU EVER HAD AN STD?NO REVIEWED WITH PATIENT 07/24/18 0935 JSREVIEWED WITH PATIEBT 08/19/18 1211 LASREVIEWED WITH PATIENT 10/30/18 0959 BVREVIEWED WITH PT 12/04/18 1128 BV. HOSPITALIZATION/MAJOR DIAGNOSTIC PROCEDURE NO HOSPITALIZATION HISTORY. REVIEW OF SYSTEMS REVIEWED BY: PROVIDER: . CONSTITUTIONAL: ANY CHANGE IN YOUR MEDICAL CONDITION? NO . CHILLS NO . FEVER NO . INFECTION: DO YOU HAVE NEW INFECTIONS? NO . DO YOU HAVE HISTORY OF MRSA? NO . MUSCULOSKELETAL: ANY NEW PATTERNS OF PAIN OR NUMBNESS? NO . GASTROENTEROLOGY: ANY NEW CHANGE IN BOWEL CONTROL? NO . GENITOURINARY: ANY NEW CHANGE IN BLADDER CONTROL? NO . IS THERE A CHANCE YOU COULD BE ? NO . HEMATOLOGY/LYMPH: DO YOU TAKE ANY BLOOD THINNERS? (FOR EXAMPLE- COUMADIN, PLAVIX, AGGRENOX, PLATEL, PRADAXA, OR XARELTO) NO . WHEN WAS YOUR LAST DOSE? DATE: TIME: . NEUROLOGY: HAVE YOU FALLEN IN THE PAST 12 MONTHS? NO . ANY NEW EXTREMITY NUMBNESS OR WEAKNESS? NO . CARDIOLOGY: DO YOU HAVE A PACEMAKER OR DEFIBRILLATOR? NO . RESPIRATORY: HAVE YOU BEEN SICK IN THE PAST WEEK? NO . FEVER NO . FLU LIKE SYMPTOMS? NO . COUGH NO . INTEGUMENTARY: DO YOU HAVE ANY RASHES OR OPEN SORES? NO . ALLERGIC/IMMUNO: ARE YOU ALLERGIC TO IV DYE? NO . ANY NEW ALLERGIES? NO . PSYCHIATRIC: DO YOU HAVE THOUGHTS OF HURTING YOURSELF OR SOMEONE ELSE? NO . ARE YOU ABUSED, NEGLECTED, OR IN AN UNSAFE ENVIRONMENT? NO . ENDOCRINOLOGY: ARE YOU DIABETIC? NO . OTHER: DO YOU NEED ANY PRESCRIPTIONS? NO . IF YES, PLEASE LIST: ____ . ANY NEW PROBLEMS WITH YOUR MEDICATIONS? NO . WHEN DID YOU LAST EAT? 03/10 1800 . WHEN DID YOU LAST DRINK? 03/11 0930 . WHAT DID YOU LAST DRINK? WATER . NAME OF PERSON DRIVING YOU HOME? [place] . DO YOU HAVE ANY OTHER QUESTIONS OR CONCERNS NO PT HAS NOT HAD ANY VACCINES IN THE PAST 30 DAYS . VITAL SIGNS WT 259 LBS, HT 71", BMI 36.12 INDEX, BP 154/95 MM HG, HR 87 /MIN, RR 16 /MIN, TEMP 97.5 F, OXYGEN SAT % 95%, SAFE IN ENV? (Y/N) Y, REVIEWED BY: AD. 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 LUMBAR SPONDYLOSIS. 2. LUMBOSACRAL SPONDYLOSIS POST PROCEDURE DIAGNOSES 1. LUMBAR SPONDYLOSIS. 2. LUMBOSACRAL SPONDYLOSIS PROCEDURE LEFT L4-L5 AND LEFT L5-S1 LUMBAR FACET RADIOFREQUENCY SURGEON DR. MAISHA KOHLI WHALE TRAINER NONE ANESTHESIA LOCAL PRE PROCEDURE REPORT THE PATIENT HAS HISTORY OF CHRONIC LOW BACK PAIN. I EVALUATE THE PATIENT AND REVIEWED THE CHART. I WENT OVER THE RISKS, ALTERNATIVES, AND BENEFITS ASSOCIATED WITH THIS PROCEDURE. THE PATIENT WOULD LIKE TO PROCEED AND GIVE CONSENT TO PERFORMED THE PROCEDURE. THE PATIENT DENIES UNEXPLAINABLE WEIGHT LOSS, FEVER, CHILLS, OR NEW CHANGES IN URINARY OR BOWEL CONTROL DESCRIPTION OF PROCEDURE THE PATIENT WAS BROUGHT TO THE PROCEDURE ROOM AND PLACED IN THE PRONE POSITION. THE LUMBOSACRAL AREA WAS CLEANED WITH CHLORAPREP SOLUTION AND DRAPED ASEPTICALLY. THE PROCEDURE WAS DONE UNDER STERILE CONDITIONS. I CHECKED LATERALITY AND THE LEVEL WHERE THE PROCEDURE WAS GOING TO BE PERFORMED WITH THE PATIENT AND THE SUPPORTING STAFF AT THE MOMENT OF THE TIME OUT IN THE PROCEDURE ROOM. UNDER FLUOROSCOPIC GUIDANCE, TARGETS WERE SELECTED AT THE INTERSECTION OF THE LEFT TRANSVERSE PROCESS OF L4, L5 AND ALA OF S1 WITH ITS RESPECTIVE SUPERIOR ARTICULAR PROCESS. LIDOCAINE WAS USED TO NUMB THE SKIN AND THE SUBCUTANEOUS TISSUE BELOW IT. RADIOFREQUENCY NEEDLES 22-GAUGE 15 CM LONG WITH 10 MM ACTIVE CURVE TIP WERE ADVANCED UNDER FLUOROSCOPIC GUIDANCE AND FOLLOWING PATIENT FEEDBACK UNTIL THE TARGET AREA WAS REACHED. POSITION OF THE NEEDLES WAS VERIFIED WITH AP AND LATERAL VIEWS. AFTER PROPER POSITION OF THE NEEDLE WAS ACHIEVED, WE WORKED WITH THE LEFT SELECTED MEDIAN BRANCHES OF L3, L4 AND THE DORSAL RAMI OF L5. WE MEASURED THE CORRESPONDING IMPEDANCES, SENSORY STIMULATION AND MOTOR RESPONSES INDICATED IN THE RADIOFREQUENCY WORKSHEET. POSITION OF THE NEEDLES WAS VERIFIED AGAIN WITH AP AND LATERAL VIEWS. LIDOCAINE 1%, 2 ML, WAS INJECTED AT EACH LEVEL. RADIOFREQUENCY WAS DONE AT EACH LEVEL AT 80 DEGREES FOR 90 SECONDS. AFTER RADIOFREQUENCY WAS DONE, THE PATIENT RECEIVED BUPIVACAINE 0.125% 1 CC WITH KENALOG 5 MG AT EACH SITE. THERE WAS NO EVIDENCE OF BLOOD, PARESTHESIA OR CEREBROSPINAL FLUID DURING THE PROCEDURE. THE PATIENT WAS SENT TO THE RECOVERY ROOM. THE PATIENT WAS MOVING THE EXTREMITIES AND DOING WELL. THERE WAS NO COMPLICATION DURING THE PROCEDURE. FLUOROSCOPY TIME WAS 42 SECONDS POST PROCEDURE NOTE THE PATIENT WILL BE SEEN IN A FOLLOW UP IN THE NEXT FEW WEEKS. INSTRUCTIONS WERE GIVEN, QUESTIONS WERE ANSWERED, AND THE PATIENT EXPRESSED UNDERSTANDING AND AGREES WITH THE PLAN. I, JEAN-PAUL PAULSON, DOCUMENTED THE ABOVE INFORMATION ACTING A SCRIBE FOR DR. KOHLI. I HAVE REVIEWED THE ABOVE DOCUMENT, WRITTEN BY JEAN-PAUL BAEZIBKeith AND I VERIFY THAT IT IS ACCURATE. PROCEDURE CODES 6045F RADXPS IN END [id number] PXD [id number] DESTROY LUMB/SAC FACET JNT, [place]: [place] [id number] DESTROY L/S FACET JNT ADDL, MODIFIERS: LT DISPOSITION & COMMUNICATION FOLLOW UP 3 WEEKS ELECTRONICALLY SIGNED BY MAISHA KOHLI MD, MD ON 03/22/2019 AT 07:44 PM EDT DISCLAIMER : THIS IS A VISIT SUMMARY EXTRACTED FROM THE [facility] CHART. IT IS NOT A COPY OF THE [employer] PROGRESS NOTE. MTDD
== END ==
LOC: M PAIN 13:00
PROVIDERS: ATTEND Anesthesiology
DX: M47.816 Spondylosis without myelopathy or radiculopathy, lumbar region (principal); M47.817 Spondylosis without myelopathy or radiculopathy, lumbosacral region; E66.01 Morbid (severe) obesity due to excess calories; Z68.36 Body mass index [BMI] 36.0-36.9, adult; E78.1 Pure hyperglyceridemia; J30.9 Allergic rhinitis, unspecified; I10 Essential (primary) hypertension; I87.2 Venous insufficiency (chronic) (peripheral); Z79.1 Long term (current) use of non-steroidal anti-inflammatories (NSAID); Z79.899 Other long term (current) drug therapy
CPT/HCPCS: 64635; 64636; J3301

== ENCOUNTER → 2019-04-23 | Outpatient (CLI) | payer BC ==
[~2019-04-23] MED LIST changes: -BUPIVACAINE HCL 0.25% 30 ML VIAL As Ordered ONE; -LIDOCAINE 1% SDV INJ 30 ML VIAL As Ordered ONE; -TRIAMCINOLONE ACETONIDE SUSP 40 MG/ML VIAL (J3301) As Ordered ONE
--- NOTE | 2019-04-28 02:07 | ECWPNPC ---
PATIENT NAME: ROOSEVELT WATKINS : 1965 GENDER: MALE VISIT DATE: 04/23/2019 DISCHARGE DATE: 04/23/19 1012 VISIT LOCKED DATE TIME: PHYSICIAN: JC KAHN RESOURCE: JC KAHN REASON FOR APPOINTMENT 1. POST RF HISTORY OF PRESENT ILLNESS HISTORY OF PRESENT ILLNESS: PAIN THE PATIENT DESCRIBES THE PAIN... 53 YEAR OLD MALE IN FOR POST RF FOLLOW UP. HE REPORTS THE PROCEDURE HAS WORKED WELL AND RATES HIS PAIN AT A 2-3/10 CURRENTLY. HE DESCRIBES THE PAIN ACHING AND SORE. FALL RISK SCREENING: SCREENING :NO FALLS REPORTED IN THE LAST YEAR CURRENT MEDICATIONS TAKING ADVIL 200 MG TABLET 2 TABLET WITH FOOD OR MILK NEEDED ORALLY BID, NOTES: NONE RECENT TAKING FUROSEMIDE 20 MG TABLET 1 TABLET ORALLY ONCE A DAY, NOTES: 03/10 230 TAKING LISINOPRIL-HYDROCHLOROTHIAZIDE 20-25 MG TABLET 1 TABLET ORALLY ONCE A DAY, NOTES: 03/11 930 TAKING MELOXICAM 15 MG TABLET 1 TABLET ORALLY ONCE A DAY, NOTES: 03/10 230 NOT-TAKING LIPO-FLAVONOID PLUS - TABLET 2 CAP ORALLY DAILY, NOTES: NONE RECENT MEDICATION LIST REVIEWED AND RECONCILED WITH THE PATIENT PAST MEDICAL HISTORY MORBID OBESITY 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, NL T SPINE 09/08 X RAYS 10/10 ECHO NL EF, TRACE MR, MILDLY DILATED LA, ELEVATED CVP, IVC MILDLY ENLARGED HYPERTRIGLYCERIDEMIA DDD HAYFEVER ESSENTIAL HYPERTENSION CHRONIC VENOUS ISUFFICIENCY TINNITUS ALLERGIES ENVIRONMENTAL: NASAL CONGESTION, ITCHY EYES, SNEEZING - ALLERGY SURGICAL HISTORY X5 R KNEE ACL,ARTHROSCOPIC BACK INJECTIONS X3 ON RIGHT AND LEFT COLONOSCOPY 10/11/18 FAMILY HISTORY FATHER: ALIVE 79 YRS, HTN, HEARING LOSS, DIAGNOSED WITH HYPERTENSION MOTHER: ALIVE 76 YRS, UNKNOWN SIBLINGS: ALIVE, YOUNGEST BROTHER - GB ISSUES YOUNGER BROTHER - MILD STROKE DAUGHTER(S): ALIVE, 11/12/1990 - HEALTHY 11/07/2001 - HEALTHY MATERNAL AUNT: CANCER 2 BROTHER(S) . 2DAUGHTER(S) - HEALTHY. OLDEST DAUGHTER - CHRON\\'S DISEASE _ _HAD BOWEL RESECTION. SOCIAL HISTORY GENERAL: TOBACCO USE ARE YOU A:NONSMOKER HIV / HEP-C SCREENING HIV TEST OFFERED TO PATIENT:YES DATE OFFERED:08/29/2017 TEST ACCEPTED:NO HEP-C TEST OFFERED TO PATIENT:YES DATE OFFERED:08/29/2017 REASON:PATIENT DECLINED PREVIOUSLY DONE TEST ACCEPTED:NO PREVIOUSLY DONE REASON:PATIENT DECLINED BROCHURE PROVIDED TO PATIENTYES OTHERS AT HOME: NONE. EDUCATION LEVEL OF EDUCATION:HIGH SCHOOL DIET: REGULAR. LANGUAGE LANGUAGES SPOKEN:GREEK DOMESTIC VIOLENCE DO YOU FEEL SAFE IN YOUR ENVIRONMENT?YES BMI CARE GOAL FOLLOW-UP ABOVE NORMAL BMI FOLLOW-UPGIVING ENCOURAGEMENT TO EXERCISE RECREATIONAL DRUG USE DRUG USE?NO EXERCISE: WALKS, BIKES, BODY BUILD. LEARNING BARRIERS / SPECIAL NEEDS BARRIERS TO LEARNING?NO HEARING IMPAIRED?NO VISION IMPAIRED?YES COGNITIVELY IMPAIRED?NO : CORRECTIVE LENSES FOR READING READINESS TO LEARN?YES LEARNING PREFERENCES?NO LEARNING CAPABILITIES PRESENT?YES EMOTIONAL BARRIERS?NO SPECIAL DEVICES?NO GAS TORCH BRAZIER NEEDED?NO LUNG CANCER SCREENING SMOKING STATUS:NON SMOKER PAIN CLINIC PFS, CLERGY, PUBLIC HEALTH REFERRALS PFS REFERRAL NEEDED?NO CLERGY REFERRAL NEEDED?NO PUBLIC HEALTH REFERRAL NEEDED?NO WAS THE PROVIDER NOTIFIED OF ANY PERTINENT INFO? N/A HAS THE PATIENT BEEN EDUCATED REGARDING HIS/HER PLAN OF CARE?YES USING HEATING PAD HAS THE PATIENT BEEN EDUCATED REGARDING PAIN, THE RISK FOR PAIN, THE IMPORTANCE OF EFFECTIVE PAIN MANAGEMENT, AND THE PAIN ASSESSMENT PROCESS?YES LATEX QUESTIONNAIRE LATEX ALLERGY : HAVE YOU EVER DEVELOPED ANY TYPE OF REACTION AFTER HANDLING LATEX PRODUCTS SUCH RUBBER GLOVES, CONDOMS, DIAPHRAGMS, BALLOONS, SOCKS, OR UNDERWEAR?NO LATEX ALLERGY : HAVE YOU EVER DEVELOPED ANY TYPE OF REACTION DURING OR AFTER DENTAL APPOINTMENT, VAGINAL/RECTAL EXAMINATION, SURGICAL PROCEDURE, OR ANY OTHER EXPOSURE?NO DATE ASKED : 03/11/2019 LATEX RISK : HAVE YOU EVER HAD ANY DIFFICULTY BREATHING OR HIVES AFTER EATING OR HANDLING ANY FRUITS, OR VEGETABLES; SUCH KIWI, BANANAS, STONE FRUITS, OR CHESTNUTSNO LATEX RISK : DO YOU HAVE A PREVIOUS PERSONAL HISTORY OF MORE THAN NINE SURGERIES, SPINA BIFIDA, OR REPEATED CATHERIZATIONS? NO LATEX RISK : ARE YOU FREQUENTLY EXPOSED TO LATEX PRODUCTS IN YOUR OCCUPATION?NO CAFFEINE CAFFEINE USE?YES HOW OFTEN AND HOW MUCH? OCCASIONALLY ADVANCE DIRECTIVE ADVANCE DIRECTIVE DISCUSSED WITH PATIENT:YES PT DOES NOT HAVE ANY ADVANCED DIRECTIVES AND HE DECLINES INFORMATION ON HCP OR ASSISTANCE AT THIS TIME. MORMONISM [id number] RELIGIOUS MARITAL STATUS: . 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 SEXUAL HX HAD SEX IN THE LAST 12 MONTHS (VAGINAL, ORAL, OR ANAL)?YES WITHWOMEN ONLY USE PROTECTION?NO HAVE YOU EVER HAD AN STD?NO REVIEWED WITH PATIENT 07/24/18 0935 JSREVIEWED WITH PATIEBT 08/19/18 1211 LASREVIEWED WITH PATIENT 10/30/18 0959 BVREVIEWED WITH PT 12/04/18 1128 BVREVIEWED WITH PT 04/23/19 0940 LAS. HOSPITALIZATION/MAJOR DIAGNOSTIC PROCEDURE NO HOSPITALIZATION HISTORY. REVIEW OF SYSTEMS REVIEWED BY: PROVIDER: BESS LEES . CONSTITUTIONAL: ANY CHANGE IN YOUR MEDICAL CONDITION? NO . CHILLS NO . FEVER NO . INFECTION: DO YOU HAVE NEW INFECTIONS? NO . DO YOU HAVE HISTORY OF MRSA? NO . MUSCULOSKELETAL: ANY NEW PATTERNS OF PAIN OR NUMBNESS? NO . GASTROENTEROLOGY: ANY NEW CHANGE IN BOWEL CONTROL? NO . GENITOURINARY: ANY NEW CHANGE IN BLADDER CONTROL? NO . IS THERE A CHANCE YOU COULD BE ? NO . HEMATOLOGY/LYMPH: DO YOU TAKE ANY BLOOD THINNERS? (FOR EXAMPLE- COUMADIN, PLAVIX, AGGRENOX, PLATEL, PRADAXA, OR XARELTO) NO . WHEN WAS YOUR LAST DOSE? DATE: TIME: . NEUROLOGY: HAVE YOU FALLEN IN THE PAST 12 MONTHS? NO . ANY NEW EXTREMITY NUMBNESS OR WEAKNESS? NO . CARDIOLOGY: DO YOU HAVE A PACEMAKER OR DEFIBRILLATOR? NO . RESPIRATORY: HAVE YOU BEEN SICK IN THE PAST WEEK? NO . FEVER NO . FLU LIKE SYMPTOMS? NO . COUGH NO . INTEGUMENTARY: DO YOU HAVE ANY RASHES OR OPEN SORES? NO . ALLERGIC/IMMUNO: ARE YOU ALLERGIC TO IV DYE? NO . ANY NEW ALLERGIES? NO . PSYCHIATRIC: DO YOU HAVE THOUGHTS OF HURTING YOURSELF OR SOMEONE ELSE? NO . ARE YOU ABUSED, NEGLECTED, OR IN AN UNSAFE ENVIRONMENT? NO . ENDOCRINOLOGY: ARE YOU DIABETIC? NO . OTHER: DO YOU NEED ANY PRESCRIPTIONS? NO . IF YES, PLEASE LIST: ____ . ANY NEW PROBLEMS WITH YOUR MEDICATIONS? NO . WHEN DID YOU LAST EAT? ____ . WHEN DID YOU LAST DRINK? ____ . WHAT DID YOU LAST DRINK? ____ . NAME OF PERSON DRIVING YOU HOME? ____ . DO YOU HAVE ANY OTHER QUESTIONS OR CONCERNS NO . VITAL SIGNS WT 260.2 LBS, HT 71", BMI 36.29 INDEX, BP 146/82 MM HG, HR 79 /MIN, RR 18 /MIN, TEMP 98.1 F, OXYGEN SAT % 95%, SAFE IN ENV? (Y/N) YES, NA INITIALS MO 09:39, REVIEWED BY: ADELINE. EXAMINATION GENERAL EXAMINATION: GENERALNO ACUTE DISTRESS, WELL NOURISHED AND HYDRATED. PSYCHAPPROPRIATE MOOD AND AFFECT . LUNGS:CLEAR TO AUSCULTATION BILATERALLY, NO WHEEZES, RHONCHI, RALES. HEART:NO MURMURS, REGULAR RATE AND RHYTHM. ASSESSMENTS INTERVERTEBRAL DISC DISORDER WITH RADICULOPATHY OF LUMBAR REGION - M51.16 (PRIMARY) TREATMENT INTERVERTEBRAL DISC DISORDER WITH RADICULOPATHY OF LUMBAR REGION CLINICAL NOTES: 53 YEAR OLD MALE IN FOR POST RF FOLLOW UP. HE REPORTS GOOD RELIEF STATUS POST PROCEDURE. GIVEN PRESENTING SYMPTOMS AND RESULTS OF PHYSICAL EXAMINATION RECOMMENDED FOLLOW UP IN 2 MONTHS OR SOONER SHOULD PAIN RETURN. . PROCEDURE CODES FA211 ESTABILISHED PATIENT [facility] FACILITY CHARGE DISPOSITION & COMMUNICATION FOLLOW UP 2 MONTHS (REASON: CHRONIC PAIN ) ELECTRONICALLY SIGNED BY RINA MIRELES ON 04/27/2019 AT 09:54 AM EDT DISCLAIMER : THIS IS A VISIT SUMMARY EXTRACTED FROM THE [employer] CHART. IT IS NOT A COPY OF THE [employer] PROGRESS NOTE. NATE
== END ==
LOC: M PAIN 09:15
PROVIDERS: ATTEND Family Medicine
DX: M51.16 Intervertebral disc disorders with radiculopathy, lumbar region (principal); E78.1 Pure hyperglyceridemia; I10 Essential (primary) hypertension; Z79.1 Long term (current) use of non-steroidal anti-inflammatories (NSAID); Z79.899 Other long term (current) drug therapy

== ENCOUNTER → 2019-06-25 | Outpatient (CLI) | payer BC ==
[~2019-06-25] MED LIST changes: +LISI20TA20 PO; -LISI20TA3 PO
--- NOTE | 2019-06-27 01:52 | ECWPNPC ---
PATIENT NAME: ROOSEVELT WATKINS : 1965 GENDER: MALE VISIT DATE: 06/25/2019 DISCHARGE DATE: 06/25/19 1005 VISIT LOCKED DATE TIME: PHYSICIAN: JC KAHN RESOURCE: JC KAHN REASON FOR APPOINTMENT 1. CHRONIC PAIN HISTORY OF PRESENT ILLNESS HISTORY OF PRESENT ILLNESS: PAIN THE PATIENT DESCRIBES THE PAIN... 53-YEAR-OLD MALE IN FOR CHRONIC PAIN FOLLOW-UP. HE RATES HIS PAIN AT A 6-7 OUT OF 10 CURRENTLY AND DESCRIBES IT ACHING, SHARP, STABBING, SORE, AND SHOOTING. HE HAD RF PROCEDURE DONE PREVIOUSLY AND FEELS THAT HELPED HIM FOR APPROXIMATELY A MONTH. TODAY HE WOULD LIKE TO DISCUSS ANOTHER PROCEDURE TO HELP ALLEVIATE HIS SYMPTOMS. FALL RISK SCREENING: SCREENING :NO FALLS REPORTED IN THE LAST YEAR CURRENT MEDICATIONS TAKING ADVIL 200 MG TABLET 2 TABLET WITH FOOD OR MILK NEEDED ORALLY BID, NOTES: NONE RECENT TAKING FUROSEMIDE 20 MG TABLET 1 TABLET ORALLY ONCE A DAY, NOTES: 03/10 230 TAKING MELOXICAM 15 MG TABLET 1 TABLET ORALLY ONCE A DAY, NOTES: 03/10 230 TAKING LISINOPRIL-HYDROCHLOROTHIAZIDE 20-25 MG TABLET 1 TABLET ORALLY ONCE A DAY, NOTES: 03/11 930 NOT-TAKING LIPO-FLAVONOID PLUS - TABLET 2 CAP ORALLY DAILY, NOTES: NONE RECENT MEDICATION LIST REVIEWED AND RECONCILED WITH THE PATIENT PAST MEDICAL HISTORY MORBID OBESITY 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, NL T SPINE 09/08 X RAYS 10/10 ECHO NL EF, TRACE MR, MILDLY DILATED LA, ELEVATED CVP, IVC MILDLY ENLARGED HYPERTRIGLYCERIDEMIA DDD HAYFEVER ESSENTIAL HYPERTENSION CHRONIC VENOUS ISUFFICIENCY TINNITUS ALLERGIES ENVIRONMENTAL: NASAL CONGESTION, ITCHY EYES, SNEEZING - ALLERGY SURGICAL HISTORY X5 R KNEE ACL,ARTHROSCOPIC BACK INJECTIONS X3 ON RIGHT AND LEFT COLONOSCOPY 10/11/18 FAMILY HISTORY FATHER: ALIVE 79 YRS, HTN, HEARING LOSS, DIAGNOSED WITH HYPERTENSION MOTHER: ALIVE 76 YRS, UNKNOWN SIBLINGS: ALIVE, YOUNGEST BROTHER - GB ISSUES YOUNGER BROTHER - MILD STROKE DAUGHTER(S): ALIVE, 11/12/1990 - HEALTHY 11/07/2001 - HEALTHY MATERNAL AUNT: OTHER MALIGNANT NEOPLASM OF UNSPECIFIED SITE 2 BROTHER(S) . 2DAUGHTER(S) - HEALTHY. OLDEST DAUGHTER - CHRON\\'S DISEASE _ _HAD BOWEL RESECTION. SOCIAL HISTORY GENERAL: TOBACCO USE ARE YOU A:NONSMOKER HIV / HEP-C SCREENING HIV TEST OFFERED TO PATIENT:YES DATE OFFERED:08/29/2017 TEST ACCEPTED:NO HEP-C TEST OFFERED TO PATIENT:YES DATE OFFERED:08/29/2017 REASON:PATIENT DECLINED PREVIOUSLY DONE TEST ACCEPTED:NO PREVIOUSLY DONE REASON:PATIENT DECLINED BROCHURE PROVIDED TO PATIENTYES OTHERS AT HOME: NONE. EDUCATION LEVEL OF EDUCATION:HIGH SCHOOL DIET: REGULAR. LANGUAGE LANGUAGES SPOKEN:SAMOAN DOMESTIC VIOLENCE DO YOU FEEL SAFE IN YOUR ENVIRONMENT?YES BMI CARE GOAL FOLLOW-UP ABOVE NORMAL BMI FOLLOW-UPGIVING ENCOURAGEMENT TO EXERCISE RECREATIONAL DRUG USE DRUG USE?NO EXERCISE: WALKS, BIKES, BODY BUILD. LEARNING BARRIERS / SPECIAL NEEDS BARRIERS TO LEARNING?NO HEARING IMPAIRED?NO VISION IMPAIRED?YES COGNITIVELY IMPAIRED?NO : CORRECTIVE LENSES FOR READING READINESS TO LEARN?YES LEARNING PREFERENCES?NO LEARNING CAPABILITIES PRESENT?YES EMOTIONAL BARRIERS?NO SPECIAL DEVICES?NO RECREATION PROGRAM SPECIALIST NEEDED?NO LUNG CANCER SCREENING SMOKING STATUS:NON SMOKER PAIN CLINIC PFS, CLERGY, PUBLIC HEALTH REFERRALS PFS REFERRAL NEEDED?NO CLERGY REFERRAL NEEDED?NO PUBLIC HEALTH REFERRAL NEEDED?NO WAS THE PROVIDER NOTIFIED OF ANY PERTINENT INFO? N/A HAS THE PATIENT BEEN EDUCATED REGARDING HIS/HER PLAN OF CARE?YES USING HEATING PAD HAS THE PATIENT BEEN EDUCATED REGARDING PAIN, THE RISK FOR PAIN, THE IMPORTANCE OF EFFECTIVE PAIN MANAGEMENT, AND THE PAIN ASSESSMENT PROCESS?YES LATEX QUESTIONNAIRE LATEX ALLERGY : HAVE YOU EVER DEVELOPED ANY TYPE OF REACTION AFTER HANDLING LATEX PRODUCTS SUCH RUBBER GLOVES, CONDOMS, DIAPHRAGMS, BALLOONS, SOCKS, OR UNDERWEAR?NO LATEX ALLERGY : HAVE YOU EVER DEVELOPED ANY TYPE OF REACTION DURING OR AFTER DENTAL APPOINTMENT, VAGINAL/RECTAL EXAMINATION, SURGICAL PROCEDURE, OR ANY OTHER EXPOSURE?NO DATE ASKED : 03/11/2019 LATEX RISK : HAVE YOU EVER HAD ANY DIFFICULTY BREATHING OR HIVES AFTER EATING OR HANDLING ANY FRUITS, OR VEGETABLES; SUCH KIWI, BANANAS, STONE FRUITS, OR CHESTNUTSNO LATEX RISK : DO YOU HAVE A PREVIOUS PERSONAL HISTORY OF MORE THAN NINE SURGERIES, SPINA BIFIDA, OR REPEATED CATHERIZATIONS? NO LATEX RISK : ARE YOU FREQUENTLY EXPOSED TO LATEX PRODUCTS IN YOUR OCCUPATION?NO CAFFEINE CAFFEINE USE?YES HOW OFTEN AND HOW MUCH? OCCASIONALLY ADVANCE DIRECTIVE ADVANCE DIRECTIVE DISCUSSED WITH PATIENT:YES PT DOES NOT HAVE ANY ADVANCED DIRECTIVES AND HE DECLINES INFORMATION ON HCP OR ASSISTANCE AT THIS TIME. ORTHODOX [id number] TAOIST MARITAL STATUS: . 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 SEXUAL HX HAD SEX IN THE LAST 12 MONTHS (VAGINAL, ORAL, OR ANAL)?YES WITHWOMEN ONLY USE PROTECTION?NO HAVE YOU EVER HAD AN STD?NO REVIEWED WITH PATIENT 07/24/18 0935 JSREVIEWED WITH PATIEBT 08/19/18 1211 LASREVIEWED WITH PATIENT 10/30/18 0959 BVREVIEWED WITH PT 12/04/18 1128 BVREVIEWED WITH PT 04/23/19 0940 LASREVIEWED WITH PATIENT 06/25/19 LAS. HOSPITALIZATION/MAJOR DIAGNOSTIC PROCEDURE NO HOSPITALIZATION HISTORY. REVIEW OF SYSTEMS REVIEWED BY: PROVIDER: BESS LEES . CONSTITUTIONAL: ANY CHANGE IN YOUR MEDICAL CONDITION? NO . CHILLS NO . FEVER NO . INFECTION: DO YOU HAVE NEW INFECTIONS? NO . DO YOU HAVE HISTORY OF MRSA? NO . MUSCULOSKELETAL: ANY NEW PATTERNS OF PAIN OR NUMBNESS? NO . GASTROENTEROLOGY: ANY NEW CHANGE IN BOWEL CONTROL? NO . GENITOURINARY: ANY NEW CHANGE IN BLADDER CONTROL? NO . IS THERE A CHANCE YOU COULD BE ? NO . HEMATOLOGY/LYMPH: DO YOU TAKE ANY BLOOD THINNERS? (FOR EXAMPLE- COUMADIN, PLAVIX, AGGRENOX, PLATEL, PRADAXA, OR XARELTO) NO . WHEN WAS YOUR LAST DOSE? DATE: TIME: . NEUROLOGY: HAVE YOU FALLEN IN THE PAST 12 MONTHS? NO . ANY NEW EXTREMITY NUMBNESS OR WEAKNESS? NO . CARDIOLOGY: DO YOU HAVE A PACEMAKER OR DEFIBRILLATOR? NO . RESPIRATORY: HAVE YOU BEEN SICK IN THE PAST WEEK? NO . FEVER NO . FLU LIKE SYMPTOMS? NO . COUGH NO . INTEGUMENTARY: DO YOU HAVE ANY RASHES OR OPEN SORES? NO . ALLERGIC/IMMUNO: ARE YOU ALLERGIC TO IV DYE? NO . ANY NEW ALLERGIES? NO . PSYCHIATRIC: DO YOU HAVE THOUGHTS OF HURTING YOURSELF OR SOMEONE ELSE? NO . ARE YOU ABUSED, NEGLECTED, OR IN AN UNSAFE ENVIRONMENT? NO . ENDOCRINOLOGY: ARE YOU DIABETIC? NO . OTHER: DO YOU NEED ANY PRESCRIPTIONS? YES . IF YES, PLEASE LIST: ____MELOXICAM - PRESCRIBED BY PRIMARY . ANY NEW PROBLEMS WITH YOUR MEDICATIONS? NO . WHEN DID YOU LAST EAT? ____ . WHEN DID YOU LAST DRINK? ____ . WHAT DID YOU LAST DRINK? ____ . NAME OF PERSON DRIVING YOU HOME? ____ . DO YOU HAVE ANY OTHER QUESTIONS OR CONCERNS NO . VITAL SIGNS WT 264 LBS, HT 71", BMI 36.82 INDEX, BP 148/87 MM HG, HR 75 /MIN, RR 18 /MIN, TEMP 98.6 F, OXYGEN SAT % 97%, SAFE IN ENV? (Y/N) YES, NA INITIALS SC 09:25, REVIEWED BY: ADELINE. EXAMINATION GENERAL EXAMINATION: GENERALNO ACUTE DISTRESS, WELL NOURISHED AND HYDRATED. PSYCHAPPROPRIATE MOOD AND AFFECT . LUNGS:CLEAR TO AUSCULTATION BILATERALLY, NO WHEEZES, RHONCHI, RALES. HEART:NO MURMURS, REGULAR RATE AND RHYTHM. BACK:DENIES POINT TENDERNESS ALONG THE LUMBAR SPINE, NEGATIVE MODIFIED SLR BILATERALLY SURROUNDING SKIN SHOWS NO ERYTHEMA, ECCHYMOSIS, INCREASED WARMTH, AND/OR SKIN ERUPTIONS NOTED. . MUSCULOSKELETAL:EQUAL STRENGTH OF THE LOWER EXTREMITIES BILATERALLY . ASSESSMENTS INTERVERTEBRAL DISC DISORDER WITH RADICULOPATHY OF LUMBAR REGION - M51.16 (PRIMARY) TREATMENT INTERVERTEBRAL DISC DISORDER WITH RADICULOPATHY OF LUMBAR REGION NOTES: RIGHT DIAGNOSTIC FACET #2 L4-L5 L5-S1. CLINICAL NOTES: 53-YEAR-OLD MALE IN FOR CHRONIC PAIN FOLLOW-UP. GIVEN PRESENTING SYMPTOMS AND RESULTS OF PHYSICAL EXAMINATION RECOMMENDED RF PROCEDURE. WILL HAVE PATIENT COME IN FOR DIAGNOSTIC #2 RIGHT-SIDED. PATIENT HAS EXPRESSED UNDERSTANDING OF AND WAS IN AGREEMENT WITH TREATMENT PLAN. GIVEN TIME TO ASK QUESTIONS AND EXPRESS CONCERNS.CONSIDER DCS. PROCEDURE CODES FA211 ESTABILISHED PATIENT [facility] FACILITY CHARGE DISPOSITION & COMMUNICATION FOLLOW UP POSTPROCEDURE (REASON: RIGHT DIAGNOSTIC FACET BLOCK #2 L4-L5 L5-S1) ELECTRONICALLY SIGNED BY RINA MIRELES ON 06/26/2019 AT 08:41 AM EDT DISCLAIMER : THIS IS A VISIT SUMMARY EXTRACTED FROM THE [employer] CHART. IT IS NOT A COPY OF THE [employer] PROGRESS NOTE. NATE
== END ==
LOC: M PAIN 09:15
PROVIDERS: ATTEND Family Medicine
DX: M51.16 Intervertebral disc disorders with radiculopathy, lumbar region (principal); G89.29 Other chronic pain; E78.1 Pure hyperglyceridemia; I10 Essential (primary) hypertension; Z79.899 Other long term (current) drug therapy

== ENCOUNTER → 2019-07-27 | Outpatient (CLI) | payer BC ==
[~2019-07-27] MED LIST changes: +BUPIVACAINE HCL 0.25% 30 ML VIAL As Ordered ONE; +ISOVUE-M 300 61% 15ML VIAL (Q9967) As Ordered ONE; +LIDOCAINE 1% SDV INJ 30 ML VIAL As Ordered ONE
--- NOTE | 2019-07-27 12:02 | REP ---
Partial lumbar spine series: Two views . History: Injection procedure for pain. 19 seconds of fluoroscopy time is reported. Findings: A sequence of two fluoroscopically obtained last image hold procedural spot radiographs of the lumbar spine document needle position and contrast injection associated with injection procedure. Electronically Signed by Anthony Fair MD 07/27/2019 11:53 A
--- NOTE | 2019-08-11 04:38 | ECWPNPC ---
PATIENT NAME: ROOSEVELT WATKINS : 1965 GENDER: MALE VISIT DATE: 07/27/2019 DISCHARGE DATE: 07/27/19 1205 VISIT LOCKED DATE TIME: PHYSICIAN: MAISHA KOHLI MD RESOURCE: MAISHA KOHLI MD REASON FOR APPOINTMENT 1. RIGHT DIAGNOSTIC FACET BLOCK #2 L4-L5 L5-S1 HISTORY OF PRESENT ILLNESS HISTORY OF PRESENT ILLNESS: PAIN THE PATIENT DESCRIBES THE PAIN... FALL RISK SCREENING: SCREENING :NO FALLS REPORTED IN THE LAST YEAR CURRENT MEDICATIONS TAKING ADVIL 200 MG TABLET 2 TABLET WITH FOOD OR MILK NEEDED ORALLY BID, NOTES: NONE LATELY TAKING FUROSEMIDE 20 MG TABLET 1 TABLET ORALLY ONCE A DAY, NOTES: 07/26/19 TAKING MELOXICAM 15 MG TABLET 1 TABLET ORALLY ONCE A DAY, NOTES: NONE LATELY TAKING LISINOPRIL-HYDROCHLOROTHIAZIDE 20-25 MG TABLET 1 TABLET ORALLY ONCE A DAY, NOTES: 07/27/19 NOT-TAKING LIPO-FLAVONOID PLUS - TABLET 2 CAP ORALLY DAILY, NOTES: NONE RECENT MEDICATION LIST REVIEWED AND RECONCILED WITH THE PATIENT PAST MEDICAL HISTORY MORBID OBESITY 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, NL T SPINE 09/08 X RAYS 10/10 ECHO NL EF, TRACE MR, MILDLY DILATED LA, ELEVATED CVP, IVC MILDLY ENLARGED HYPERTRIGLYCERIDEMIA DDD HAYFEVER ESSENTIAL HYPERTENSION CHRONIC VENOUS ISUFFICIENCY TINNITUS ALLERGIES ENVIRONMENTAL: NASAL CONGESTION, ITCHY EYES, SNEEZING - ALLERGY SURGICAL HISTORY X5 R KNEE ACL,ARTHROSCOPIC BACK INJECTIONS X3 ON RIGHT AND LEFT COLONOSCOPY 10/11/18 FAMILY HISTORY FATHER: ALIVE 79 YRS, HTN, HEARING LOSS, DIAGNOSED WITH HYPERTENSION MOTHER: ALIVE 76 YRS, UNKNOWN SIBLINGS: ALIVE, YOUNGEST BROTHER - GB ISSUES YOUNGER BROTHER - MILD STROKE DAUGHTER(S): ALIVE, 11/12/1990 - HEALTHY 11/07/2001 - HEALTHY MATERNAL AUNT: OTHER MALIGNANT NEOPLASM OF UNSPECIFIED SITE 2 BROTHER(S) . 2DAUGHTER(S) - HEALTHY. OLDEST DAUGHTER - CHRON\\'S DISEASE _ _HAD BOWEL RESECTION. SOCIAL HISTORY GENERAL: TOBACCO USE ARE YOU A:NONSMOKER HIV / HEP-C SCREENING HIV TEST OFFERED TO PATIENT:YES DATE OFFERED:08/29/2017 TEST ACCEPTED:NO HEP-C TEST OFFERED TO PATIENT:YES DATE OFFERED:08/29/2017 REASON:PATIENT DECLINED PREVIOUSLY DONE TEST ACCEPTED:NO PREVIOUSLY DONE REASON:PATIENT DECLINED BROCHURE PROVIDED TO PATIENTYES OTHERS AT HOME: NONE. EDUCATION LEVEL OF EDUCATION:HIGH SCHOOL DIET: REGULAR. LANGUAGE LANGUAGES SPOKEN:[place] DOMESTIC VIOLENCE DO YOU FEEL SAFE IN YOUR ENVIRONMENT?YES BMI CARE GOAL FOLLOW-UP ABOVE NORMAL BMI FOLLOW-UPGIVING ENCOURAGEMENT TO EXERCISE RECREATIONAL DRUG USE DRUG USE?NO EXERCISE: WALKS, BIKES, BODY BUILD. LEARNING BARRIERS / SPECIAL NEEDS BARRIERS TO LEARNING?NO HEARING IMPAIRED?NO VISION IMPAIRED?YES COGNITIVELY IMPAIRED?NO : CORRECTIVE LENSES FOR READING READINESS TO LEARN?YES LEARNING PREFERENCES?NO LEARNING CAPABILITIES PRESENT?YES EMOTIONAL BARRIERS?NO SPECIAL DEVICES?NO PROVIDER NETWORK MANAGER NEEDED?NO LUNG CANCER SCREENING SMOKING STATUS:NON SMOKER PAIN CLINIC PFS, CLERGY, PUBLIC HEALTH REFERRALS PFS REFERRAL NEEDED?NO CLERGY REFERRAL NEEDED?NO PUBLIC HEALTH REFERRAL NEEDED?NO WAS THE PROVIDER NOTIFIED OF ANY PERTINENT INFO? N/A HAS THE PATIENT BEEN EDUCATED REGARDING HIS/HER PLAN OF CARE?YES USING HEATING PAD HAS THE PATIENT BEEN EDUCATED REGARDING PAIN, THE RISK FOR PAIN, THE IMPORTANCE OF EFFECTIVE PAIN MANAGEMENT, AND THE PAIN ASSESSMENT PROCESS?YES LATEX QUESTIONNAIRE LATEX ALLERGY : HAVE YOU EVER DEVELOPED ANY TYPE OF REACTION AFTER HANDLING LATEX PRODUCTS SUCH RUBBER GLOVES, CONDOMS, DIAPHRAGMS, BALLOONS, SOCKS, OR UNDERWEAR?NO LATEX ALLERGY : HAVE YOU EVER DEVELOPED ANY TYPE OF REACTION DURING OR AFTER DENTAL APPOINTMENT, VAGINAL/RECTAL EXAMINATION, SURGICAL PROCEDURE, OR ANY OTHER EXPOSURE?NO DATE ASKED : 03/11/2019 LATEX RISK : HAVE YOU EVER HAD ANY DIFFICULTY BREATHING OR HIVES AFTER EATING OR HANDLING ANY FRUITS, OR VEGETABLES; SUCH KIWI, BANANAS, STONE FRUITS, OR CHESTNUTSNO LATEX RISK : DO YOU HAVE A PREVIOUS PERSONAL HISTORY OF MORE THAN NINE SURGERIES, SPINA BIFIDA, OR REPEATED CATHERIZATIONS? NO LATEX RISK : ARE YOU FREQUENTLY EXPOSED TO LATEX PRODUCTS IN YOUR OCCUPATION?NO CAFFEINE CAFFEINE USE?YES HOW OFTEN AND HOW MUCH? OCCASIONALLY ADVANCE DIRECTIVE ADVANCE DIRECTIVE DISCUSSED WITH PATIENT:YES PT DOES NOT HAVE ANY ADVANCED DIRECTIVES AND HE DECLINES INFORMATION ON HCP OR ASSISTANCE AT THIS TIME. SIKHISM [id number] SIKHISM MARITAL STATUS: . 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 SEXUAL HX HAD SEX IN THE LAST 12 MONTHS (VAGINAL, ORAL, OR ANAL)?YES WITHWOMEN ONLY USE PROTECTION?NO HAVE YOU EVER HAD AN STD?NO REVIEWED WITH PATIENT 07/24/18 0935 JSREVIEWED WITH PATIEBT 08/19/18 1211 LASREVIEWED WITH PATIENT 10/30/18 0959 BVREVIEWED WITH PT 12/04/18 1128 BVREVIEWED WITH PT 04/23/19 0940 LASREVIEWED WITH PATIENT 06/25/19 LAS. HOSPITALIZATION/MAJOR DIAGNOSTIC PROCEDURE NO HOSPITALIZATION HISTORY. REVIEW OF SYSTEMS REVIEWED BY: PROVIDER: . CONSTITUTIONAL: ANY CHANGE IN YOUR MEDICAL CONDITION? NO . CHILLS NO . FEVER NO . INFECTION: DO YOU HAVE NEW INFECTIONS? NO . DO YOU HAVE HISTORY OF MRSA? NO . MUSCULOSKELETAL: ANY NEW PATTERNS OF PAIN OR NUMBNESS? NO . GASTROENTEROLOGY: ANY NEW CHANGE IN BOWEL CONTROL? NO . GENITOURINARY: ANY NEW CHANGE IN BLADDER CONTROL? NO . IS THERE A CHANCE YOU COULD BE ? NO . HEMATOLOGY/LYMPH: DO YOU TAKE ANY BLOOD THINNERS? (FOR EXAMPLE- COUMADIN, PLAVIX, AGGRENOX, PLATEL, PRADAXA, OR XARELTO) NO . WHEN WAS YOUR LAST DOSE? DATE: TIME: . NEUROLOGY: HAVE YOU FALLEN IN THE PAST 12 MONTHS? NO . ANY NEW EXTREMITY NUMBNESS OR WEAKNESS? NO . CARDIOLOGY: DO YOU HAVE A PACEMAKER OR DEFIBRILLATOR? NO . RESPIRATORY: HAVE YOU BEEN SICK IN THE PAST WEEK? NO . FEVER NO . FLU LIKE SYMPTOMS? NO . COUGH NO . INTEGUMENTARY: DO YOU HAVE ANY RASHES OR OPEN SORES? NO . ALLERGIC/IMMUNO: ARE YOU ALLERGIC TO IV DYE? NO . ANY NEW ALLERGIES? NO . PSYCHIATRIC: DO YOU HAVE THOUGHTS OF HURTING YOURSELF OR SOMEONE ELSE? NO . ARE YOU ABUSED, NEGLECTED, OR IN AN UNSAFE ENVIRONMENT? NO . ENDOCRINOLOGY: ARE YOU DIABETIC? NO . OTHER: DO YOU NEED ANY PRESCRIPTIONS? NO . IF YES, PLEASE LIST: ____ . ANY NEW PROBLEMS WITH YOUR MEDICATIONS? NO . WHEN DID YOU LAST EAT? 07/26/19 1800 . WHEN DID YOU LAST DRINK? 07/27/19 0830 . WHAT DID YOU LAST DRINK? WATER . NAME OF PERSON DRIVING YOU HOME? RAVEN . DO YOU HAVE ANY OTHER QUESTIONS OR CONCERNS NO . VITAL SIGNS WT 258.0 LBS, HT 71", BMI 35.98 INDEX, BP 141/90 MM HG, HR 76 /MIN, RR 18 /MIN, TEMP 97.0 F, OXYGEN SAT % 97%, NA INITIALS AW 1024, REVIEWED BY: EM. ASSESSMENTS SPONDYLOSIS OF LUMBAR REGION WITHOUT MYELOPATHY OR RADICULOPATHY - M47.816 (PRIMARY) SPONDYLOSIS WITHOUT MYELOPATHY OR RADICULOPATHY, LUMBOSACRAL REGION - M47.817 TREATMENT SPONDYLOSIS OF LUMBAR REGION WITHOUT MYELOPATHY OR RADICULOPATHY SMC FACET BLOCK (PAIN)[id number] PROCEDURES PN LUMBAR FACET BLOCK DIAGNOSTIC PRE PROCEDURE DIAGNOSIS LUMBAR SPONDYLOSIS, LUMBOSACRAL SPONDYLOSIS POST PROCEDURE DIAGNOSIS LUMBAR SPONDYLOSIS, LUMBOSACRAL SPONDYLOSIS PROCEDURE RIGHT L4-L5 AND RIGHT L5-S1 FACET BLOCK DIAGNOSTIC NUMBER [address] MAISHA KOHLI REPOSSESSOR NONE ANESTHESIA LOCAL PRE PROCEDURE NOTE THE PATIENT WITH HISTORY OF CHRONIC LOW BACK PAIN. I EVALUATED THE PATIENT AND REVIEWED THE CHART. I WENT OVER THE RISKS, ALTERNATIVES, AND BENEFITS ASSOCIATED WITH THIS PROCEDURE. THE PATIENT WOULD LIKE TO PROCEED AND GAVE CONSENT TO PERFORM THE PROCEDURE. AGREED WITH THE PATIENT WE ARE DOING THIS PROCEDURE TO DETERMINE IF THE PATIENT IS A CANDIDATE FOR A RADIOFREQUENCY ABLATION OF THE FACETS JOINTS. THE PATIENT DENIES UNEXPLAINABLE WEIGHT LOSS, FEVER, CHILLS, OR NEW CHANGES IN URINARY OR BOWEL CONTROL DESCRIPTION OF PROCEDURE THE PATIENT WAS BROUGHT TO THE PROCEDURE ROOM AND PLACED IN THE PRONE POSITION. THE LUMBOSACRAL AREA WAS CLEANED WITH CHLORAPREP SOLUTION AND DRAPED ASEPTICALLY. THE PROCEDURE WAS DONE UNDER STERILE CONDITIONS. I CHECKED LATERALITY AND THE LEVEL WHERE THE PROCEDURE WAS GOING TO BE PERFORMED WITH THE PATIENT AND THE SUPPORTING STAFF AT THE MOMENT OF THE TIME OUT IN THE PROCEDURE ROOM. UNDER FLUOROSCOPIC GUIDANCE, TARGETS WERE SELECTED AT THE INTERSECTION OF THE RIGHT TRANSVERSE PROCESS OF L4, L5 AND ALA OF S1 WITH ITS RESPECTIVE SUPERIOR ARTICULAR PROCESS. LIDOCAINE WAS USED TO NUMB THE SKIN AND THE SUBCUTANEOUS TISSUE BELOW IT. SPINAL NEEDLE, 22-GAUGE WAS ADVANCED UNDER FLUOROSCOPIC GUIDANCE AND FOLLOWING PATIENT FEEDBACK UNTIL THE TARGETS WERE REACHED. POSITION OF THE NEEDLES WAS VERIFIED WITH AP AND LATERAL VIEWS. AFTER PROPER POSITION OF THE NEEDLES WAS ACHIEVED, ISOVUE-M DYE 30% 0.1 ML WAS INJECTED AT EACH SITE SHOWING ADEQUATE SPREAD OF THE DYE. THEN A SOLUTION OF 0.4 ML OF BUPIVACAINE 0.25% WAS INJECTED AT EACH SITE. THERE WAS NO EVIDENCE OF BLOOD, PARESTHESIA OR CEREBROSPINAL FLUID DURING THE PROCEDURE. THE PATIENT WAS SENT TO THE RECOVERY ROOM. THE PATIENT WAS MOVING THE EXTREMITIES AND DOING WELL. THERE WAS NO COMPLICATION DURING THE PROCEDURE. FLUOROSCOPY TIME WAS 19 SECONDS POST PROCEDURE NOTE THE PATIENT WILL DOCUMENT HIS PAIN LEVEL AND RESPONSE TO THIS PROCEDURE EVERY 30 MINUTES. THE PATIENT WILL BE SEEN IN A FOLLOW UP IN THE NEXT FEW WEEKS. FURTHER DETERMINATION FOR HIS CASE WILL BE DONE AT THE NEXT VISIT. INSTRUCTIONS WERE GIVEN, QUESTIONS WERE ANSWERED, AND THE PATIENT EXPRESSED UNDERSTANDING AND AGREED WITH THE PLAN. I, JAYLON HAMM, DOCUMENTED THE ABOVE INFORMATION ACTING A SCRIBE FOR DR. KOHLI. I HAVE REVIEWED THE ABOVE DOCUMENT, WRITTEN BY JAYLON HAMM SCRIBE AND I VERIFY THAT IT IS ACCURATE. PROCEDURE CODES 52890 INJ PARAVERT F JNT L/S 1 LEV, MODIFIERS: [place] [address] INJ PARAVERT F JNT L/S 2 LEV, MODIFIERS: RT 6045F RADXPS IN END [id number] PXD DISPOSITION & COMMUNICATION FOLLOW UP 3 WEEKS ELECTRONICALLY SIGNED BY MAISHA KOHLI MD, MD ON 08/10/2019 AT 05:30 PM EST DISCLAIMER : THIS IS A VISIT SUMMARY EXTRACTED FROM THE [employer] CHART. IT IS NOT A COPY OF THE [employer] PROGRESS NOTE. MTDD
== END ==
LOC: M PAIN 10:15
PROVIDERS: ATTEND Anesthesiology
DX: M47.816 Spondylosis without myelopathy or radiculopathy, lumbar region (principal); M47.817 Spondylosis without myelopathy or radiculopathy, lumbosacral region; I10 Essential (primary) hypertension; Z79.899 Other long term (current) drug therapy
CPT/HCPCS: 64493; 64494; Q9967

== ENCOUNTER → 2019-08-18 | Outpatient (CLI) | payer BC ==
[~2019-08-18] MED LIST changes: -BUPIVACAINE HCL 0.25% 30 ML VIAL As Ordered ONE; -ISOVUE-M 300 61% 15ML VIAL (Q9967) As Ordered ONE; -LIDOCAINE 1% SDV INJ 30 ML VIAL As Ordered ONE
--- NOTE | 2019-08-20 00:59 | ECWPNPC ---
PATIENT NAME: ROOSEVELT WATKINS : 1965 GENDER: MALE VISIT DATE: 08/18/2019 DISCHARGE DATE: 08/18/19 1517 VISIT LOCKED DATE TIME: PHYSICIAN: JC KAHN RESOURCE: JC KAHN REASON FOR APPOINTMENT 1. POST PROC HISTORY OF PRESENT ILLNESS HISTORY OF PRESENT ILLNESS: PAIN THE PATIENT DESCRIBES THE PAIN... 53-YEAR-OLD MALE IN FOR POST DIAGNOSTIC FACET BLOCK #2 FOLLOW-UP. HE RATES HIS PAIN PREPROCEDURE AT A 78 OUT OF 10 AND POSTPROCEDURE AT A 3 OUT OF 10 FURTHER STATING THAT THIS LASTED FOR ALMOST A DAY. HE RATES HIS PAIN CURRENTLY AT A 6-7 OUT OF 10. HE DESCRIBES HIS PAIN ACHING, SHARP, SORE, AND SHOOTING. 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, NL T SPINE 09/08 X RAYS 10/10 ECHO NL EF, TRACE MR, MILDLY DILATED LA, ELEVATED CVP, IVC MILDLY ENLARGED HYPERTRIGLYCERIDEMIA DDD HAYFEVER ESSENTIAL HYPERTENSION CHRONIC VENOUS ISUFFICIENCY TINNITUS UMBILICAL HERNIA ALLERGIES ENVIRONMENTAL: NASAL CONGESTION, ITCHY EYES, SNEEZING - ALLERGY SURGICAL HISTORY X5 R KNEE ACL,ARTHROSCOPIC BACK INJECTIONS X3 ON RIGHT AND LEFT COLONOSCOPY 10/11/18 FAMILY HISTORY FATHER: ALIVE 79 YRS, HTN, HEARING LOSS, DIAGNOSED WITH HYPERTENSION MOTHER: ALIVE 76 YRS, UNKNOWN SIBLINGS: ALIVE, YOUNGEST BROTHER - GB ISSUES YOUNGER BROTHER - MILD STROKE DAUGHTER(S): ALIVE, 11/12/1990 - HEALTHY 11/07/2001 - HEALTHY MATERNAL AUNT: OTHER MALIGNANT NEOPLASM OF UNSPECIFIED SITE 2 BROTHER(S) . 2DAUGHTER(S) - HEALTHY. OLDEST DAUGHTER - CHRON\\'S DISEASE _ _HAD BOWEL RESECTION. SOCIAL HISTORY GENERAL: TOBACCO USE ARE YOU A:NONSMOKER HIV / HEP-C SCREENING HIV TEST OFFERED TO PATIENT:YES DATE OFFERED:08/29/2017 TEST ACCEPTED:NO HEP-C TEST OFFERED TO PATIENT:YES DATE OFFERED:08/29/2017 REASON:PATIENT DECLINED PREVIOUSLY DONE TEST ACCEPTED:NO PREVIOUSLY DONE REASON:PATIENT DECLINED BROCHURE PROVIDED TO PATIENTYES OTHERS AT HOME: NONE. EDUCATION LEVEL OF EDUCATION:HIGH SCHOOL DIET: REGULAR. LANGUAGE LANGUAGES SPOKEN:LAO DOMESTIC VIOLENCE DO YOU FEEL SAFE IN YOUR ENVIRONMENT?YES BMI CARE GOAL FOLLOW-UP ABOVE NORMAL BMI FOLLOW-UPGIVING ENCOURAGEMENT TO EXERCISE RECREATIONAL DRUG USE DRUG USE?NO EXERCISE: WALKS, BIKES, BODY BUILD. LEARNING BARRIERS / SPECIAL NEEDS BARRIERS TO LEARNING?NO HEARING IMPAIRED?NO VISION IMPAIRED?YES COGNITIVELY IMPAIRED?NO : CORRECTIVE LENSES FOR READING READINESS TO LEARN?YES LEARNING PREFERENCES?NO LEARNING CAPABILITIES PRESENT?YES EMOTIONAL BARRIERS?NO SPECIAL DEVICES?NO TRAILER ASSEMBLER NEEDED?NO LUNG CANCER SCREENING SMOKING STATUS:NON SMOKER PAIN CLINIC PFS, CLERGY, PUBLIC HEALTH REFERRALS PFS REFERRAL NEEDED?NO CLERGY REFERRAL NEEDED?NO PUBLIC HEALTH REFERRAL NEEDED?NO WAS THE PROVIDER NOTIFIED OF ANY PERTINENT INFO? N/A HAS THE PATIENT BEEN EDUCATED REGARDING HIS/HER PLAN OF CARE?YES USING HEATING PAD HAS THE PATIENT BEEN EDUCATED REGARDING PAIN, THE RISK FOR PAIN, THE IMPORTANCE OF EFFECTIVE PAIN MANAGEMENT, AND THE PAIN ASSESSMENT PROCESS?YES LATEX QUESTIONNAIRE LATEX ALLERGY : HAVE YOU EVER DEVELOPED ANY TYPE OF REACTION AFTER HANDLING LATEX PRODUCTS SUCH RUBBER GLOVES, CONDOMS, DIAPHRAGMS, BALLOONS, SOCKS, OR UNDERWEAR?NO LATEX ALLERGY : HAVE YOU EVER DEVELOPED ANY TYPE OF REACTION DURING OR AFTER DENTAL APPOINTMENT, VAGINAL/RECTAL EXAMINATION, SURGICAL PROCEDURE, OR ANY OTHER EXPOSURE?NO LATEX RISK : HAVE YOU EVER HAD ANY DIFFICULTY BREATHING OR HIVES AFTER EATING OR HANDLING ANY FRUITS, OR VEGETABLES; SUCH KIWI, BANANAS, STONE FRUITS, OR CHESTNUTSNO LATEX RISK : DO YOU HAVE A PREVIOUS PERSONAL HISTORY OF MORE THAN NINE SURGERIES, SPINA BIFIDA, OR REPEATED CATHERIZATIONS? NO LATEX RISK : ARE YOU FREQUENTLY EXPOSED TO LATEX PRODUCTS IN YOUR OCCUPATION?NO DATE ASKED : 03/11/2019 CAFFEINE CAFFEINE USE?YES HOW OFTEN AND HOW MUCH? OCCASIONALLY ADVANCE DIRECTIVE ADVANCE DIRECTIVE DISCUSSED WITH PATIENT:YES PT DOES NOT HAVE ANY ADVANCED DIRECTIVES AND HE DECLINES INFORMATION ON HCP OR ASSISTANCE AT THIS TIME. GNOSTICISM [id number] RESTORATIONISM MARITAL STATUS: . 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 SEXUAL HX HAD SEX IN THE LAST 12 MONTHS (VAGINAL, ORAL, OR ANAL)?YES WITHWOMEN ONLY USE PROTECTION?NO HAVE YOU EVER HAD AN STD?NO REVIEWED WITH PATIENT 07/24/18 0935 JSREVIEWED WITH PATIEBT 08/19/18 1211 LASREVIEWED WITH PATIENT 10/30/18 0959 BVREVIEWED WITH PT 12/04/18 1128 BVREVIEWED WITH PT 04/23/19 0940 LASREVIEWED WITH PATIENT 06/25/19 LASREVIEWED WITH PATIENT 08/18/19 1431 JS. HOSPITALIZATION/MAJOR DIAGNOSTIC PROCEDURE SURGERY - RELATED 2002 REVIEW OF SYSTEMS REVIEWED BY: PROVIDER: BESS KAHN HOSPICE CARE CONSULTANT-C . CONSTITUTIONAL: ANY CHANGE IN YOUR MEDICAL CONDITION? YES, UMBILICAL HERNIA . CHILLS NO . FEVER NO . INFECTION: DO YOU HAVE NEW INFECTIONS? NO . DO YOU HAVE HISTORY OF MRSA? NO . MUSCULOSKELETAL: ANY NEW PATTERNS OF PAIN OR NUMBNESS? NO . GASTROENTEROLOGY: ANY NEW CHANGE IN BOWEL CONTROL? NO . GENITOURINARY: ANY NEW CHANGE IN BLADDER CONTROL? NO . IS THERE A CHANCE YOU COULD BE ? NO . HEMATOLOGY/LYMPH: DO YOU TAKE ANY BLOOD THINNERS? (FOR EXAMPLE- COUMADIN, PLAVIX, AGGRENOX, PLATEL, PRADAXA, OR XARELTO) NO . WHEN WAS YOUR LAST DOSE? DATE: TIME: . NEUROLOGY: HAVE YOU FALLEN IN THE PAST 12 MONTHS? NO . ANY NEW EXTREMITY NUMBNESS OR WEAKNESS? NO . CARDIOLOGY: DO YOU HAVE A PACEMAKER OR DEFIBRILLATOR? NO . RESPIRATORY: HAVE YOU BEEN SICK IN THE PAST WEEK? NO . FEVER NO . FLU LIKE SYMPTOMS? NO . COUGH NO . INTEGUMENTARY: DO YOU HAVE ANY RASHES OR OPEN SORES? NO . ALLERGIC/IMMUNO: ARE YOU ALLERGIC TO IV DYE? NO . ANY NEW ALLERGIES? NO . PSYCHIATRIC: DO YOU HAVE THOUGHTS OF HURTING YOURSELF OR SOMEONE ELSE? NO . ARE YOU ABUSED, NEGLECTED, OR IN AN UNSAFE ENVIRONMENT? NO . ENDOCRINOLOGY: ARE YOU DIABETIC? NO . OTHER: DO YOU NEED ANY PRESCRIPTIONS? NO . IF YES, PLEASE LIST: ____ . ANY NEW PROBLEMS WITH YOUR MEDICATIONS? NO . WHEN DID YOU LAST EAT? ____ . WHEN DID YOU LAST DRINK? ____ . WHAT DID YOU LAST DRINK? ____ . NAME OF PERSON DRIVING YOU HOME? ____ . DO YOU HAVE ANY OTHER QUESTIONS OR CONCERNS NO . VITAL SIGNS WT 267 LBS, HT 71", BMI 37.23 INDEX, BP 147/84 MM HG, HR 83 /MIN, RR 18 /MIN, TEMP 97.8 F, OXYGEN SAT % 97%, SAFE IN ENV? (Y/N) YES, NA INITIALS SC 14:15, REVIEWED BY: CARLOS. EXAMINATION GENERAL EXAMINATION: GENERALNO ACUTE DISTRESS, WELL NOURISHED AND HYDRATED. PSYCHAPPROPRIATE MOOD AND AFFECT . LUNGS:CLEAR TO AUSCULTATION BILATERALLY, NO WHEEZES, RHONCHI, RALES. HEART:NO MURMURS, REGULAR RATE AND RHYTHM. BACK: POINT TENDER LUMBAR SPINE. 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 CLINICAL NOTES: 53-YEAR-OLD MALE IN FOR DIAGNOSTIC FACET BLOCK #2. GIVEN PRESENTING SYMPTOMS AND RESULTS OF PHYSICAL EXAMINATION RECOMMENDED RF PROCEDURE RIGHT SIDE L4-L5 L5-S1 WITH POST PROCEDURAL FOLLOW-UP. PATIENT HAS EXPRESSED UNDERSTANDING OF AND WAS IN AGREEMENT WITH TREATMENT PLAN. GIVEN TIME TO ASK QUESTIONS AND EXPRESS CONCERNS. PREVENTIVE MEDICINE FACET RF INFORMATION REVIEWED WITH PT. PT VERBALIZES AN UNDERSTANDING ANGELA MARTINEZ. PROCEDURE CODES FA211 ESTABILISHED PATIENT [facility] CHARGE DISPOSITION & COMMUNICATION FOLLOW UP POST PROCEDURE (REASON: RIGHT SIDE RF PROCEDURE ) ELECTRONICALLY SIGNED BY RINA MIRELES ON 08/19/2019 AT 01:55 PM EST DISCLAIMER : THIS IS A VISIT SUMMARY EXTRACTED FROM THE [employer] CHART. IT IS NOT A COPY OF THE [employer] PROGRESS NOTE. NATE
== END ==
LOC: M PAIN 14:30
PROVIDERS: ATTEND Family Medicine
DX: M47.817 Spondylosis without myelopathy or radiculopathy, lumbosacral region (principal); E78.1 Pure hyperglyceridemia; I10 Essential (primary) hypertension; Z79.899 Other long term (current) drug therapy

== ENCOUNTER 2019-09-21 11:32 | Day surgery (SDC) | payer BC ==
[~2019-09-21] VITALS: Ht 180.3 cm; Wt 119.7 kg
[~2019-09-21 11:32] MED LIST changes: +BUPIVACAINE/EPIN 0.25% 30 ML VIAL As Ordered ONE; +FURO20TA2 PO; +LIDOCAINE 1% MDV 20ML VIAL SQ PRN; +LIDOCAINE 2% INJ 100 MG/5 ML SDV (FOR ANES.) As Ordered ONE; +LR 1,000 ML IV ONE; +MIDAZOLAM INJ 2 MG/2 ML VIAL (J2250) As Ordered ONE; +PROPOFOL 200 MG/20 ML VIAL As Ordered ONE; +ROCURONIUM BROMIDE 50 MG/5 ML VIAL As Ordered ONE; +ceFAZolin SOD 2 GM in IV 1 EA IV ONE; +fentaNYL 250 MCG/5 ML INJECTION (J3010) As Ordered ONE
[2019-09-21] MEDS ORDERED: dexameTHASONE 4 MG/ML 1ML VIAL (J1100) As Ordered ONE (13:50)
[2019-09-21] MEDS ORDERED: ACETAMINOPHEN 1000MG 100ML IV BTL (OFIRMEV) (J0131 PER 10MG) As Ordered ONE (13:50)
[2019-09-21] MEDS ORDERED: METOCLOPRAMIDE INJ 10MG/2ML VIAL (J2765) As Ordered ONE (13:50)
[2019-09-21] MEDS ORDERED: KETOROLAC 60 MG/2 ML VIAL (J1885) As Ordered ONE (13:50)
[2019-09-21] MEDS ORDERED: ONDANSETRON 4MG/2ML VIAL (J2405) As Ordered ONE (13:50)
[2019-09-21] MEDS ORDERED: DESFLURANE 240 ML INHALANT As Ordered ONE (13:52)
[2019-09-21] MEDS ORDERED: SUGAMMADEX SODIUM 500 MG/5 ML VIAL (BRIDION) As Ordered ONE (13:57)
[2019-09-21] MEDS ORDERED: fentaNYL 100 MCG/2 ML INJECTION (J3010) As Ordered ONE (14:11)
[2019-09-21] MEDS ORDERED: MORPHINE 2 MG/ML 1ML VIAL (J2270) IV PRN (14:45)
[2019-09-21] MEDS ORDERED: NORCO, ANEXSIA 5/325MG TABLET (HYDROcodone/ACETAMINOPHEN) PO PRN (14:45)
[2019-09-21] MEDS ORDERED: METOCLOPRAMIDE INJ 10MG/2ML VIAL (J2765) IV PRN (14:45)
[2019-09-21] MEDS ORDERED: ONDANSETRON 4MG/2ML VIAL (J2405) IV PRN (14:45)
[2019-09-21] MEDS ORDERED: LR 1,000 ML IV SCH (14:45)
[2019-09-21] MEDS: fentaNYL 100 MCG/2 ML INJECTION (J3010) IV PRN ×3 (14:56→15:09)
[2019-09-21] MEDS: PERCOCET 5MG/325MG TAB PO PRN ×2 (14:56→15:26)
[2019-09-21 16:33] VITALS: BP 134/81
--- NOTE | 2019-09-21 18:45 | RO ---
DATE OF PROCEDURE: 09/21/2019 PREOPERATIVE DIAGNOSIS: Umbilical hernia. PREOPERATIVE DIAGNOSIS: Incarcerated umbilical hernia. PROCEDURE: Robotic incarcerated umbilical hernia repair. SURGEON: Dr. Carreon CAMPAIGN COORDINATOR: None. ANESTHESIA: General. ESTIMATED BLOOD LOSS: 5 COMPLICATIONS: None. INDICATIONS FOR PROCEDURE: The patient is a 53 old male presents with periumbilical pain found to have a large hernia on exam. Recommendation was to proceed robotic repair. Risks and benefits of procedure not limited but including bleeding, infection, hernia recurrence, hernia formation, damage to surrounding structures, need for further surgery discussed in detail with the patient informed consent was obtained procedure planned. PROCEDURE: The patient was brought back to operating room seven after sufficient sedation. The abdomen was sterilely prepped and draped. Next time-out was done to confirm proper patient, proper procedure. Following that an 8 mm incision made left lower quadrant. Veress needle inserted and the abdomen was insufflated to 15 mmHg. Veress needle was then removed and an 8 mm OptiVu robotic port was then placed to gain access to the abdomen. Once abdomen was entered two more ports were placed one in the midline on the right upper quadrant robot was then docked to the ports. Next from the console the preperitoneal space was entered with a horizontal incision superior to the umbilicus in the midline incision was carried down to the fascia was reached and then the preperitoneal space was dissected free head moving it inferiorly. There was about three to four separate small hernias around the umbilicus about a millimeter in size and a large umbilical one about 2 cm in size. All these were completely dissected free and reduced. Once that was completed an 0 Stratafix suture was used to reapproximate the fascia along the midline. A 3 x 5 cm piece of Prograf mesh was then placed over top of the fascia. The peritoneum was placed back over top of the mesh and sutured to back in place with a 2-0 V-Loc suture. Once this was completed the abdomen was desufflated. Skin incisions closed 4-0 Vicryl subcuticular sutures. The eye was cleaned and dried. Steri-Strips 4x4 and tape were applied thus ending procedure.
== END 2019-09-21 16:34 | disposition home or self-care (01) ==
LOC: M SDC 11:32
PROVIDERS: ATTEND Surgery
DX: K42.0 Umbilical hernia with obstruction, without gangrene (principal); I10 Essential (primary) hypertension; Z79.899 Other long term (current) drug therapy
CPT/HCPCS: 49653; C1781; J0131; J0690; J1100; J1885; J2250; J2405; J2765; J3010

== ENCOUNTER → 2019-10-16 | Outpatient (REF) | payer BC ==
[~2019-10-16] MED LIST changes: -BUPIVACAINE/EPIN 0.25% 30 ML VIAL As Ordered ONE; -LIDOCAINE 1% MDV 20ML VIAL SQ PRN; -LIDOCAINE 2% INJ 100 MG/5 ML SDV (FOR ANES.) As Ordered ONE; -LR 1,000 ML IV ONE; -MIDAZOLAM INJ 2 MG/2 ML VIAL (J2250) As Ordered ONE; -PROPOFOL 200 MG/20 ML VIAL As Ordered ONE; -ROCURONIUM BROMIDE 50 MG/5 ML VIAL As Ordered ONE; -ceFAZolin SOD 2 GM in IV 1 EA IV ONE; -fentaNYL 250 MCG/5 ML INJECTION (J3010) As Ordered ONE
[2019-10-16 13:23] LABS: ALBUMIN 3.9 GM/DL (3.2-5.2); ALT/SGPT 41 U/L (12-78); BILIRUBIN,TOTAL 0.9 MG/DL (0.2-1.0); BLOOD UREA NITROGEN 17 MG/DL (7-18); CALCIUM LEVEL 9.3 MG/DL (8.5-10.1); CARBON DIOXIDE LEVEL 29 MEQ/L (21-32); CHLORIDE LEVEL 105 MEQ/L (98-107); CHOLESTEROL LEVEL 173 MG/DL (<200); CREATININE FOR GFR 1.25 MG/DL (0.70-1.30); GLOMERULAR FILTRATION RATE > 60.0 (>56); GLUCOSE, FASTING 99 MG/DL (70-100); HDL CHOLESTEROL 31 MG/DL (>40); NON-HDL-C 142 MG/DL; POTASSIUM SERUM 4.7 MEQ/L (3.5-5.1); SODIUM LEVEL 139 MEQ/L (136-145); TRIGLYCERIDES LEVEL 461 MG/DL (<150)
== END ==
LOC: M SFHCADAM 08:47
PROVIDERS: ATTEND Physician Assistant Medical
DX: E66.01 Morbid (severe) obesity due to excess calories (principal); E78.1 Pure hyperglyceridemia; I10 Essential (primary) hypertension

== ENCOUNTER → 2019-11-04 | Outpatient (CLI) | payer BC ==
[~2019-11-04] MED LIST changes: +BUPIVACAINE HCL 0.25% 30 ML VIAL As Ordered ONE; +LIDOCAINE 1% SDV INJ 30 ML VIAL As Ordered ONE; +TRIAMCINOLONE ACETONIDE SUSP 40 MG/ML VIAL (J3301) As Ordered ONE
--- NOTE | 2019-11-04 19:04 | REP ---
C-ARM VIEWS LOWER LUMBAR SPINE: Three C-ARM views of the lower lumbar spine are performed during injections by Dr. Delgado. [place] are seen along the margins of the lower lumbar spine. 42 seconds of fluoroscopy time was utilized. Electronically Signed by Nirav Lopez MD 11/04/2019 07:32 P
--- NOTE | 2019-11-24 03:44 | ECWPNPC ---
PATIENT NAME: ROOSEVELT WATKINS : 1965 GENDER: MALE VISIT DATE: 11/04/2019 DISCHARGE DATE: 11/04/191810 VISIT LOCKED DATE TIME: PHYSICIAN: MAISHA KOHLI MD RESOURCE: MAISHA KOHLI MD REASON FOR APPOINTMENT 1. RIGHT SIDE RF HISTORY OF PRESENT ILLNESS HISTORY OF PRESENT ILLNESS: PAIN THE PATIENT DESCRIBES THE PAIN... 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, NL T SPINE 09/08 X RAYS 10/10 ECHO NL EF, TRACE MR, MILDLY DILATED LA, ELEVATED CVP, IVC MILDLY ENLARGED HYPERTRIGLYCERIDEMIA DDD HAYFEVER ESSENTIAL HYPERTENSION CHRONIC VENOUS ISUFFICIENCY TINNITUS UMBILICAL HERNIA ALLERGIES ENVIRONMENTAL: NASAL CONGESTION, ITCHY EYES, SNEEZING - ALLERGY SURGICAL HISTORY X5 R KNEE ACL,ARTHROSCOPIC BACK INJECTIONS X3 ON RIGHT AND LEFT COLONOSCOPY 10/11/18 UMBILICAL HERNIA REPAIR 09/21/19 FAMILY HISTORY FATHER: ALIVE 80 YRS, HTN, HEARING LOSS, DIAGNOSED WITH HYPERTENSION MOTHER: ALIVE 77 YRS, UNKNOWN SIBLINGS: ALIVE, YOUNGEST BROTHER - GB ISSUES YOUNGER BROTHER - MILD STROKE DAUGHTER(S): ALIVE, 11/12/1990 - HEALTHY 11/07/2001 - HEALTHY MATERNAL AUNT: OTHER MALIGNANT NEOPLASM OF UNSPECIFIED SITE 2 BROTHER(S) . 2DAUGHTER(S) - HEALTHY. OLDEST DAUGHTER - CHRON\\'S DISEASE _ _HAD BOWEL RESECTION. SOCIAL HISTORY GENERAL: TOBACCO USE ARE YOU A:NONSMOKER HIV / HEP-C SCREENING HIV TEST OFFERED TO PATIENT:YES DATE OFFERED:08/29/2017 TEST ACCEPTED:NO HEP-C TEST OFFERED TO PATIENT:YES DATE OFFERED:08/29/2017 REASON:PATIENT DECLINED PREVIOUSLY DONE TEST ACCEPTED:NO PREVIOUSLY DONE REASON:PATIENT DECLINED BROCHURE PROVIDED TO PATIENTYES OTHERS AT HOME: NONE. EDUCATION LEVEL OF EDUCATION:HIGH SCHOOL DIET: REGULAR. LANGUAGE LANGUAGES SPOKEN:CROATIAN DOMESTIC VIOLENCE DO YOU FEEL SAFE IN YOUR ENVIRONMENT?YES BMI CARE GOAL FOLLOW-UP ABOVE NORMAL BMI FOLLOW-UPGIVING ENCOURAGEMENT TO EXERCISE RECREATIONAL DRUG USE DRUG USE?NO EXERCISE: WALKS, BIKES, BODY BUILD. 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 N/A HAS THE PATIENT BEEN EDUCATED REGARDING HIS/HER PLAN OF CARE?YES USING HEATING PAD HAS THE PATIENT BEEN EDUCATED REGARDING PAIN, THE RISK FOR PAIN, THE IMPORTANCE OF EFFECTIVE PAIN MANAGEMENT, AND THE PAIN ASSESSMENT PROCESS?YES LATEX QUESTIONNAIRE LATEX ALLERGY : HAVE YOU EVER DEVELOPED ANY TYPE OF REACTION AFTER HANDLING LATEX PRODUCTS SUCH RUBBER GLOVES, CONDOMS, DIAPHRAGMS, BALLOONS, SOCKS, OR UNDERWEAR?NO LATEX ALLERGY : HAVE YOU EVER DEVELOPED ANY TYPE OF REACTION DURING OR AFTER DENTAL APPOINTMENT, VAGINAL/RECTAL EXAMINATION, SURGICAL PROCEDURE, OR ANY OTHER EXPOSURE?NO LATEX RISK : HAVE YOU EVER HAD ANY DIFFICULTY BREATHING OR HIVES AFTER EATING OR HANDLING ANY FRUITS, OR VEGETABLES; SUCH KIWI, BANANAS, STONE FRUITS, OR CHESTNUTSNO LATEX RISK : DO YOU HAVE A PREVIOUS PERSONAL HISTORY OF MORE THAN NINE SURGERIES, SPINA BIFIDA, OR REPEATED CATHERIZATIONS? NO LATEX RISK : ARE YOU FREQUENTLY EXPOSED TO LATEX PRODUCTS IN YOUR OCCUPATION?NO DATE ASKED : 11/04/2019 CAFFEINE CAFFEINE USE?YES HOW OFTEN AND HOW MUCH? OCCASIONALLY ADVANCE DIRECTIVE ADVANCE DIRECTIVE DISCUSSED WITH PATIENT:YES 11/04/2019 PT DOES NOT HAVE ANY ADVANCED DIRECTIVES AND HE DECLINES INFORMATION ON HCP OR ASSISTANCE AT THIS TIME. AD [facility]IST [id number] MANDAEN MARITAL STATUS: . 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 SEXUAL HX HAD SEX IN THE LAST 12 MONTHS (VAGINAL, ORAL, OR ANAL)?YES WITHWOMEN ONLY USE PROTECTION?NO HAVE YOU EVER HAD AN STD?NO REVIEWED WITH PATIENT 07/24/18 0935 JSREVIEWED WITH PATIEBT 08/19/18 1211 LASREVIEWED WITH PATIENT 10/30/18 0959 BVREVIEWED WITH PT 12/04/18 1128 BVREVIEWED WITH PT 04/23/19 0940 LASREVIEWED WITH PATIENT 06/25/19 LASREVIEWED WITH PATIENT 08/18/19 1431 JS. HOSPITALIZATION/MAJOR DIAGNOSTIC PROCEDURE SURGERY - RELATED 2002 REVIEW OF SYSTEMS REVIEWED BY: PROVIDER: . CONSTITUTIONAL: ANY CHANGE IN YOUR MEDICAL CONDITION? NO . CHILLS NO . FEVER NO . INFECTION: DO YOU HAVE NEW INFECTIONS? NO . DO YOU HAVE HISTORY OF MRSA? NO . MUSCULOSKELETAL: ANY NEW PATTERNS OF PAIN OR NUMBNESS? NO . GASTROENTEROLOGY: ANY NEW CHANGE IN BOWEL CONTROL? NO . GENITOURINARY: ANY NEW CHANGE IN BLADDER CONTROL? NO . IS THERE A CHANCE YOU COULD BE ? NO . HEMATOLOGY/LYMPH: DO YOU TAKE ANY BLOOD THINNERS? (FOR EXAMPLE- COUMADIN, PLAVIX, AGGRENOX, PLATEL, PRADAXA, OR XARELTO) NO . WHEN WAS YOUR LAST DOSE? DATE: TIME: . NEUROLOGY: HAVE YOU FALLEN IN THE PAST 12 MONTHS? NO . ANY NEW EXTREMITY NUMBNESS OR WEAKNESS? NO . CARDIOLOGY: DO YOU HAVE A PACEMAKER OR DEFIBRILLATOR? NO . RESPIRATORY: HAVE YOU BEEN SICK IN THE PAST WEEK? NO . FEVER NO . FLU LIKE SYMPTOMS? NO . COUGH NO . INTEGUMENTARY: DO YOU HAVE ANY RASHES OR OPEN SORES? NO . ALLERGIC/IMMUNO: ARE YOU ALLERGIC TO IV DYE? NO . ANY NEW ALLERGIES? NO . PSYCHIATRIC: DO YOU HAVE THOUGHTS OF HURTING YOURSELF OR SOMEONE ELSE? NO . ARE YOU ABUSED, NEGLECTED, OR IN AN UNSAFE ENVIRONMENT? NO . ENDOCRINOLOGY: ARE YOU DIABETIC? NO . OTHER: DO YOU NEED ANY PRESCRIPTIONS? NO . IF YES, PLEASE LIST: ____ . ANY NEW PROBLEMS WITH YOUR MEDICATIONS? NO . WHEN DID YOU LAST EAT? 2/12 0830 . WHEN DID YOU LAST DRINK? 11/04 113 . WHAT DID YOU LAST DRINK? WATER . NAME OF PERSON DRIVING YOU HOME? RAVEN . DO YOU HAVE ANY OTHER QUESTIONS OR CONCERNS NO . VITAL SIGNS WT 263.8 LBS, HT 71", BMI 36.79 INDEX, BP 161/96 MM HG, REPEAT BP 130/86 MANUAL, HR 71 /MIN, RR 18 /MIN, TEMP 97.7 F, OXYGEN SAT % 94%, SAFE IN ENV? (Y/N) Y, NA INITIALS MS 1459, REVIEWED BY: AD. ASSESSMENTS SPONDYLOSIS WITHOUT MYELOPATHY OR RADICULOPATHY, LUMBAR REGION - M47.816 (PRIMARY) SPONDYLOSIS OF LUMBOSACRAL REGION WITHOUT MYELOPATHY OR RADICULOPATHY - M47.817 TREATMENT SPONDYLOSIS OF LUMBOSACRAL REGION WITHOUT MYELOPATHY OR RADICULOPATHY SMC FACET BLOCK (PAIN)[id number] PROCEDURES PN RADIOFREQUENCY PRE PROCEDURE DIAGNOSES 1. LUMBAR SPONDYLOSIS. 2. LUMBOSACRAL SPONDYLOSIS POST PROCEDURE DIAGNOSES 1. LUMBAR SPONDYLOSIS. 2. LUMBOSACRAL SPONDYLOSIS PROCEDURE RIGHT L4-L5 AND RIGHT L5-S1 LUMBAR FACET RADIOFREQUENCY SURGEON DR. MAISHA KOHLI FISHING TACKLE REPAIRER NONE ANESTHESIA LOCAL PRE PROCEDURE REPORT THE PATIENT HAS HISTORY OF CHRONIC LOW BACK PAIN. I EVALUATE THE PATIENT AND REVIEWED THE CHART. I WENT OVER THE RISKS, ALTERNATIVES, AND BENEFITS ASSOCIATED WITH THIS PROCEDURE. THE PATIENT WOULD LIKE TO PROCEED AND GIVE CONSENT TO PERFORMED THE PROCEDURE. THE PATIENT DENIES UNEXPLAINABLE WEIGHT LOSS, FEVER, CHILLS, OR NEW CHANGES IN URINARY OR BOWEL CONTROL DESCRIPTION OF PROCEDURE THE PATIENT WAS BROUGHT TO THE PROCEDURE ROOM AND PLACED IN THE PRONE POSITION. THE LUMBOSACRAL AREA WAS CLEANED WITH CHLORAPREP SOLUTION AND DRAPED ASEPTICALLY. THE PROCEDURE WAS DONE UNDER STERILE CONDITIONS. I CHECKED LATERALITY AND THE LEVEL WHERE THE PROCEDURE WAS GOING TO BE PERFORMED WITH THE PATIENT AND THE SUPPORTING STAFF AT THE MOMENT OF THE TIME OUT IN THE PROCEDURE ROOM. UNDER FLUOROSCOPIC GUIDANCE, TARGETS WERE SELECTED AT THE INTERSECTION OF THE RIGHT TRANSVERSE PROCESS OF L4, L5 AND ALA OF S1 WITH ITS RESPECTIVE SUPERIOR ARTICULAR PROCESS. LIDOCAINE WAS USED TO NUMB THE SKIN AND THE SUBCUTANEOUS TISSUE BELOW IT. RADIOFREQUENCY NEEDLES 22-GAUGE 15 CM LONG WITH 10 MM ACTIVE CURVE TIP WERE ADVANCED UNDER FLUOROSCOPIC GUIDANCE AND FOLLOWING PATIENT FEEDBACK UNTIL THE TARGET AREA WAS REACHED. POSITION OF THE NEEDLES WAS VERIFIED WITH AP AND LATERAL VIEWS. AFTER PROPER POSITION OF THE NEEDLE WAS ACHIEVED, WE WORKED WITH THE RIGHT SELECTED MEDIAN BRANCHES OF L3, L4 AND THE DORSAL RAMI OF L5. WE MEASURED THE CORRESPONDING IMPEDANCES, SENSORY STIMULATION AND MOTOR RESPONSES INDICATED IN THE RADIOFREQUENCY WORKSHEET. POSITION OF THE NEEDLES WAS VERIFIED AGAIN WITH AP AND LATERAL VIEWS. LIDOCAINE 1%, 2 ML, WAS INJECTED AT EACH LEVEL. RADIOFREQUENCY WAS DONE AT EACH LEVEL AT 80 DEGREES FOR 90 SECONDS. AFTER RADIOFREQUENCY WAS DONE, THE PATIENT RECEIVED BUPIVACAINE 0.125% 1 CC WITH KENALOG 5 MG AT EACH SITE. THERE WAS NO EVIDENCE OF BLOOD, PARESTHESIA OR CEREBROSPINAL FLUID DURING THE PROCEDURE. THE PATIENT WAS SENT TO THE RECOVERY ROOM. THE PATIENT WAS MOVING THE EXTREMITIES AND DOING WELL. THERE WAS NO COMPLICATION DURING THE PROCEDURE. FLUOROSCOPY TIME WAS 42 SECONDS POST PROCEDURE NOTE THE PATIENT WILL BE SEEN IN A FOLLOW UP IN THE NEXT FEW WEEKS. INSTRUCTIONS WERE GIVEN, QUESTIONS WERE ANSWERED, AND THE PATIENT EXPRESSED UNDERSTANDING AND AGREES WITH THE PLAN. I, JAYLON HAMM, DOCUMENTED THE ABOVE INFORMATION ACTING A SCRIBE FOR DR. KOHLI. I HAVE REVIEWED THE ABOVE DOCUMENT, WRITTEN BY JAYLON HAMM SCRIBKeith AND I VERIFY THAT IT IS ACCURATE. PROCEDURE CODES 34199 DESTROY LUMB/SAC FACET JNT, MODIFI[place]: [place] [address]342 DESTROY L/S FACET JNT ADDL, MODIFIERS: RT 6045F RADXPS IN END [id number] PXD DISPOSITION & COMMUNICATION FOLLOW UP 3 WEEKS ELECTRONICALLY SIGNED BY MAISHA KOHLI MD, MD ON 11/23/2019 AT 09:27 AM EST DISCLAIMER : THIS IS A VISIT SUMMARY EXTRACTED FROM THE [employer] CHART. IT IS NOT A COPY OF THE [employer] PROGRESS NOTE. MTDD
== END ==
LOC: M PAIN 14:30
PROVIDERS: ATTEND Anesthesiology
DX: M47.816 Spondylosis without myelopathy or radiculopathy, lumbar region (principal); M47.817 Spondylosis without myelopathy or radiculopathy, lumbosacral region
CPT/HCPCS: 64635; 64636; J3301

== ENCOUNTER → 2019-12-04 | Outpatient (CLI) | payer BC ==
[~2019-12-04] MED LIST changes: -BUPIVACAINE HCL 0.25% 30 ML VIAL As Ordered ONE; -LIDOCAINE 1% SDV INJ 30 ML VIAL As Ordered ONE; -TRIAMCINOLONE ACETONIDE SUSP 40 MG/ML VIAL (J3301) As Ordered ONE
--- NOTE | 2019-12-08 01:39 | ECWPNPC ---
PATIENT NAME: ROOSEVELT WATKINS : 1965 GENDER: MALE VISIT DATE: 12/04/2019 DISCHARGE DATE: 12/04/19 1124 VISIT LOCKED DATE TIME: PHYSICIAN: JC KAHN RESOURCE: JC KAHN REASON FOR APPOINTMENT 1. POST RF HISTORY OF PRESENT ILLNESS HISTORY OF PRESENT ILLNESS: PAIN THE PATIENT DESCRIBES THE PAIN... 54-YEAR-OLD MALE IN FOR POST RF PROCEDURE FOLLOW-UP. HE FEELS THE PROCEDURE WAS INEFFECTIVE OVERALL. HE RATES HIS PAIN CURRENTLY AT A 5 OUT OF 10 AND DESCRIBES IT ACHING, SHARP, STABBING, SORE, AND SHOOTING. PATIENT WOULD LIKE TO HOLD OFF ON PROCEDURES FOR NOW AND DISCUSSED MEDICATION MANAGEMENT. 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, NL T SPINE 09/08 X RAYS 10/10 ECHO NL EF, TRACE MR, MILDLY DILATED LA, ELEVATED CVP, IVC MILDLY ENLARGED HYPERTRIGLYCERIDEMIA DDD HAYFEVER ESSENTIAL HYPERTENSION CHRONIC VENOUS ISUFFICIENCY TINNITUS UMBILICAL HERNIA ALLERGIES ENVIRONMENTAL: NASAL CONGESTION, ITCHY EYES, SNEEZING - ALLERGY SURGICAL HISTORY X5 R KNEE ACL,ARTHROSCOPIC BACK INJECTIONS X3 ON RIGHT AND LEFT COLONOSCOPY 10/11/18 UMBILICAL HERNIA REPAIR 09/21/19 FAMILY HISTORY FATHER: ALIVE 80 YRS, HTN, HEARING LOSS, DIAGNOSED WITH HYPERTENSION MOTHER: ALIVE 77 YRS, UNKNOWN SIBLINGS: ALIVE, YOUNGEST BROTHER - GB ISSUES YOUNGER BROTHER - MILD STROKE DAUGHTER(S): ALIVE, 11/12/1990 - HEALTHY 11/07/2001 - HEALTHY MATERNAL AUNT: OTHER MALIGNANT NEOPLASM OF UNSPECIFIED SITE 2 BROTHER(S) . 2DAUGHTER(S) - HEALTHY. OLDEST DAUGHTER - CHRON\\'S DISEASE _ _HAD BOWEL RESECTION. SOCIAL HISTORY GENERAL: TOBACCO USE ARE YOU A:NONSMOKER HIV / HEP-C SCREENING HIV TEST OFFERED TO PATIENT:YES DATE OFFERED:08/29/2017 TEST ACCEPTED:NO HEP-C TEST OFFERED TO PATIENT:YES DATE OFFERED:08/29/2017 REASON:PATIENT DECLINED PREVIOUSLY DONE TEST ACCEPTED:NO PREVIOUSLY DONE REASON:PATIENT DECLINED BROCHURE PROVIDED TO PATIENTYES OTHERS AT HOME: NONE. EDUCATION LEVEL OF EDUCATION:HIGH SCHOOL DIET: REGULAR. LANGUAGE LANGUAGES SPOKEN:IRISH DOMESTIC VIOLENCE DO YOU FEEL SAFE IN YOUR ENVIRONMENT?YES BMI CARE GOAL FOLLOW-UP ABOVE NORMAL BMI FOLLOW-UPGIVING ENCOURAGEMENT TO EXERCISE RECREATIONAL DRUG USE DRUG USE?NO EXERCISE: WALKS, BIKES, BODY BUILD. 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 N/A HAS THE PATIENT BEEN EDUCATED REGARDING HIS/HER PLAN OF CARE?YES USING HEATING PAD HAS THE PATIENT BEEN EDUCATED REGARDING PAIN, THE RISK FOR PAIN, THE IMPORTANCE OF EFFECTIVE PAIN MANAGEMENT, AND THE PAIN ASSESSMENT PROCESS?YES LATEX QUESTIONNAIRE LATEX ALLERGY : HAVE YOU EVER DEVELOPED ANY TYPE OF REACTION AFTER HANDLING LATEX PRODUCTS SUCH RUBBER GLOVES, CONDOMS, DIAPHRAGMS, BALLOONS, SOCKS, OR UNDERWEAR?NO LATEX ALLERGY : HAVE YOU EVER DEVELOPED ANY TYPE OF REACTION DURING OR AFTER DENTAL APPOINTMENT, VAGINAL/RECTAL EXAMINATION, SURGICAL PROCEDURE, OR ANY OTHER EXPOSURE?NO DATE ASKED : 11/04/2019 LATEX RISK : HAVE YOU EVER HAD ANY DIFFICULTY BREATHING OR HIVES AFTER EATING OR HANDLING ANY FRUITS, OR VEGETABLES; SUCH KIWI, BANANAS, STONE FRUITS, OR CHESTNUTSNO LATEX RISK : DO YOU HAVE A PREVIOUS PERSONAL HISTORY OF MORE THAN NINE SURGERIES, SPINA BIFIDA, OR REPEATED CATHERIZATIONS? NO LATEX RISK : ARE YOU FREQUENTLY EXPOSED TO LATEX PRODUCTS IN YOUR OCCUPATION?NO CAFFEINE CAFFEINE USE?YES HOW OFTEN AND HOW MUCH? OCCASIONALLY ADVANCE DIRECTIVE ADVANCE DIRECTIVE DISCUSSED WITH PATIENT:YES PT DOES NOT HAVE ANY ADVANCED DIRECTIVES AND HE DECLINES INFORMATION ON HCP OR ASSISTANCE AT THIS TIME. HOAHAOISM [id number] NONDENOMINATIONAL MARITAL STATUS: . 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 SEXUAL HX HAD SEX IN THE LAST 12 MONTHS (VAGINAL, ORAL, OR ANAL)?YES WITHWOMEN ONLY USE PROTECTION?NO HAVE YOU EVER HAD AN STD?NO REVIEWED WITH PATIENT 07/24/18 0935 JSREVIEWED WITH PATIEBT 08/19/18 1211 LASREVIEWED WITH PATIENT 10/30/18 0959 BVREVIEWED WITH PT 12/04/18 1128 BVREVIEWED WITH PT 04/23/19 0940 LASREVIEWED WITH PATIENT 06/25/19 LASREVIEWED WITH PATIENT 08/18/19 1431 JS. HOSPITALIZATION/MAJOR DIAGNOSTIC PROCEDURE SURGERY - RELATED 2002 REVIEW OF SYSTEMS REVIEWED BY: PROVIDER: BESS FLYNN-Cari . CONSTITUTIONAL: ANY CHANGE IN YOUR MEDICAL CONDITION? NO . CHILLS NO . FEVER NO . INFECTION: DO YOU HAVE NEW INFECTIONS? NO . DO YOU HAVE HISTORY OF MRSA? NO . MUSCULOSKELETAL: ANY NEW PATTERNS OF PAIN OR NUMBNESS? NO . GASTROENTEROLOGY: ANY NEW CHANGE IN BOWEL CONTROL? NO . GENITOURINARY: ANY NEW CHANGE IN BLADDER CONTROL? NO . IS THERE A CHANCE YOU COULD BE ? NO . HEMATOLOGY/LYMPH: DO YOU TAKE ANY BLOOD THINNERS? (FOR EXAMPLE- COUMADIN, PLAVIX, AGGRENOX, PLATEL, PRADAXA, OR XARELTO) NO . WHEN WAS YOUR LAST DOSE? DATE: TIME: . NEUROLOGY: HAVE YOU FALLEN IN THE PAST 12 MONTHS? NO . ANY NEW EXTREMITY NUMBNESS OR WEAKNESS? NO . CARDIOLOGY: DO YOU HAVE A PACEMAKER OR DEFIBRILLATOR? NO . RESPIRATORY: HAVE YOU BEEN SICK IN THE PAST WEEK? NO . FEVER NO . FLU LIKE SYMPTOMS? NO . COUGH NO . INTEGUMENTARY: DO YOU HAVE ANY RASHES OR OPEN SORES? NO . ALLERGIC/IMMUNO: ARE YOU ALLERGIC TO IV DYE? NO . ANY NEW ALLERGIES? NO . PSYCHIATRIC: DO YOU HAVE THOUGHTS OF HURTING YOURSELF OR SOMEONE ELSE? NO . ARE YOU ABUSED, NEGLECTED, OR IN AN UNSAFE ENVIRONMENT? NO . ENDOCRINOLOGY: ARE YOU DIABETIC? NO . OTHER: DO YOU NEED ANY PRESCRIPTIONS? NO . IF YES, PLEASE LIST: ____ . ANY NEW PROBLEMS WITH YOUR MEDICATIONS? NO . WHEN DID YOU LAST EAT? ____ . WHEN DID YOU LAST DRINK? ____ . WHAT DID YOU LAST DRINK? ____ . NAME OF PERSON DRIVING YOU HOME? ____ . DO YOU HAVE ANY OTHER QUESTIONS OR CONCERNS NO . VITAL SIGNS WT 267.0 LBS, HT 71", BMI 37.23 INDEX, BP 138/82 MM HG, HR 83 /MIN, RR 18 /MIN, TEMP 98.5 F, OXYGEN SAT % 97%, SAFE IN ENV? (Y/N) Y, NA INITIALS AW 1052, REVIEWED BY: LARRY. EXAMINATION GENERAL EXAMINATION: GENERALNO ACUTE DISTRESS, WELL NOURISHED AND HYDRATED. PSYCHAPPROPRIATE MOOD AND AFFECT . LUNGS:CLEAR TO AUSCULTATION BILATERALLY, NO WHEEZES, RHONCHI, RALES. HEART:NO MURMURS, REGULAR RATE AND RHYTHM. ASSESSMENTS SPONDYLOSIS OF LUMBOSACRAL REGION WITHOUT MYELOPATHY OR RADICULOPATHY - M47.817 (PRIMARY) TREATMENT SPONDYLOSIS OF LUMBOSACRAL REGION WITHOUT MYELOPATHY OR RADICULOPATHY START TRAMADOL HCL TABLET, 50 MG, 1 TABLET NEEDED, ORALLY, BID, 30 DAYS, 60 TABLET CLINICAL NOTES: 54-YEAR-OLD MALE IN FOR POST RF PROCEDURE FOLLOW-UP. GIVEN PRESENTING SYMPTOMS AND RESULTS OF PHYSICAL EXAMINATION RECOMMENDED TRAMADOL 50 MG TWICE A DAY NEEDED FOR PAIN WITH FOLLOW-UP IN ONE MONTH TO DETERMINE EFFICACY OF TREATMENT. PATIENT HAS EXPRESSED UNDERSTANDING OF AND WAS IN AGREEMENT WITH TREATMENT PLAN. GIVEN TIME TO ASK QUESTIONS AND EXPRESS CONCERNS., ISTOP REGISTRY REVIEWED AND DEMONSTRATES COMPLLIANCE. (REF # [id number] ) BRINGS IN MEDICATIONS WHICH IS APPROPRIATE FOR WHAT WAS DISPENSED. RECENT URINE TOXICOLOGY REVIEWED. NO UNAUTHORIZED MEDICATIONS. NO ILLICIT SUBSTANCES AND PRESCRIBED MEDICATIONS WERE PRESENT. OTHERS NOTES: TRAMADOL MATERIAL WAS PRINTED. PROCEDURE CODES FA211 ESTABILISHED PATIENT [facility] CHARGE DISPOSITION & COMMUNICATION FOLLOW UP 4 WEEKS (REASON: BACK PAIN, NEW MEDICATION) ELECTRONICALLY SIGNED BY RINA MIRELES ON 12/07/2019 AT 01:55 PM EDT DISCLAIMER : THIS IS A VISIT SUMMARY EXTRACTED FROM THE [employer] CHART. IT IS NOT A COPY OF THE [employer] PROGRESS NOTE. NATE
== END ==
LOC: M PAIN 10:45
PROVIDERS: ATTEND Family Medicine
DX: M47.817 Spondylosis without myelopathy or radiculopathy, lumbosacral region (principal); I10 Essential (primary) hypertension; Z79.899 Other long term (current) drug therapy

== ENCOUNTER → 2020-01-07 | Outpatient (CLI) | payer BC ==
--- NOTE | 2020-01-12 05:11 | ECWPNPC ---
PATIENT NAME: ROOSEVELT WATKINS : 1965 GENDER: MALE VISIT DATE: 01/07/2020 DISCHARGE DATE: 01/07/20 0941 VISIT LOCKED DATE TIME: PHYSICIAN: JC KANH RESOURCE: JC KAHN REASON FOR APPOINTMENT 1. NEW MED HISTORY OF PRESENT ILLNESS HISTORY OF PRESENT ILLNESS: PAIN THE PATIENT DESCRIBES THE PAIN... 54-YEAR-OLD MALE IN FOR CHRONIC PAIN FOLLOW-UP. AT LAST CLINIC VISIT PATIENT WAS STARTED ON TRAMADOL AND SHE ADMITS TODAY THAT THIS MAKES HIM FEEL JITTERY. HE RATES HIS PAIN CURRENTLY AT A 7 OUT OF 10. 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, NL T SPINE 09/08 X RAYS 10/10 ECHO NL EF, TRACE MR, MILDLY DILATED LA, ELEVATED CVP, IVC MILDLY ENLARGED HYPERTRIGLYCERIDEMIA DDD HAYFEVER ESSENTIAL HYPERTENSION CHRONIC VENOUS ISUFFICIENCY TINNITUS UMBILICAL HERNIA ALLERGIES ENVIRONMENTAL: NASAL CONGESTION, ITCHY EYES, SNEEZING - ALLERGY SURGICAL HISTORY X5 R KNEE ACL,ARTHROSCOPIC BACK INJECTIONS X3 ON RIGHT AND LEFT COLONOSCOPY 10/11/18 UMBILICAL HERNIA REPAIR 09/21/19 FAMILY HISTORY FATHER: ALIVE 80 YRS, HTN, HEARING LOSS, DIAGNOSED WITH HYPERTENSION MOTHER: ALIVE 77 YRS, UNKNOWN SIBLINGS: ALIVE, YOUNGEST BROTHER - GB ISSUES YOUNGER BROTHER - MILD STROKE DAUGHTER(S): ALIVE, 11/12/1990 - HEALTHY 11/07/2001 - HEALTHY MATERNAL AUNT: OTHER MALIGNANT NEOPLASM OF UNSPECIFIED SITE 2 BROTHER(S) . 2DAUGHTER(S) - HEALTHY. OLDEST DAUGHTER - CHRON\\'S DISEASE _ _HAD BOWEL RESECTION. SOCIAL HISTORY GENERAL: TOBACCO USE ARE YOU A:NONSMOKER LATEX QUESTIONNAIRE LATEX ALLERGY : HAVE YOU EVER DEVELOPED ANY TYPE OF REACTION AFTER HANDLING LATEX PRODUCTS SUCH RUBBER GLOVES, CONDOMS, DIAPHRAGMS, BALLOONS, SOCKS, OR UNDERWEAR?NO LATEX ALLERGY : HAVE YOU EVER DEVELOPED ANY TYPE OF REACTION DURING OR AFTER DENTAL APPOINTMENT, VAGINAL/RECTAL EXAMINATION, SURGICAL PROCEDURE, OR ANY OTHER EXPOSURE?NO DATE ASKED : 11/04/2019 LATEX RISK : HAVE YOU EVER HAD ANY DIFFICULTY BREATHING OR HIVES AFTER EATING OR HANDLING ANY FRUITS, OR VEGETABLES; SUCH KIWI, BANANAS, STONE FRUITS, OR CHESTNUTSNO LATEX RISK : DO YOU HAVE A PREVIOUS PERSONAL HISTORY OF MORE THAN NINE SURGERIES, SPINA BIFIDA, OR REPEATED CATHERIZATIONS? NO LATEX RISK : ARE YOU FREQUENTLY EXPOSED TO LATEX PRODUCTS IN YOUR OCCUPATION?NO LUNG CANCER SCREENING SMOKING STATUS:NON SMOKER BMI CARE GOAL FOLLOW-UP ABOVE NORMAL BMI FOLLOW-UPGIVING ENCOURAGEMENT TO EXERCISE ALCOHOL SCREENING DID YOU HAVE A DRINK CONTAINING ALCOHOL IN THE PAST YEAR?YES HOW OFTEN DID YOU HAVE SIX OR MORE DRINKS ON ONE OCCASION IN THE PAST YEAR?NEVER (0 POINTS) HOW MANY DRINKS DID YOU HAVE ON A TYPICAL DAY WHEN YOU WERE DRINKING IN THE PAST YEAR?3 OR 4 (1 POINT) HOW OFTEN DID YOU HAVE A DRINK CONTAINING ALCOHOL IN THE PAST YEAR?MONTHLY OR LESS (1 POINT) POINTS2 INTERPRETATIONNEGATIVE RECREATIONAL DRUG USE DRUG USE?NO CAFFEINE CAFFEINE USE?YES HOW OFTEN AND HOW MUCH? OCCASIONALLY SEXUAL HX HAD SEX IN THE LAST 12 MONTHS (VAGINAL, ORAL, OR ANAL)?YES WITHWOMEN ONLY USE PROTECTION?NO HAVE YOU EVER HAD AN STD?NO HIV / HEP-C SCREENING HIV TEST OFFERED TO PATIENT:YES DATE OFFERED:08/29/2017 TEST ACCEPTED:NO HEP-C TEST OFFERED TO PATIENT:YES DATE OFFERED:08/29/2017 REASON:PATIENT DECLINED PREVIOUSLY DONE TEST ACCEPTED:NO PREVIOUSLY DONE REASON:PATIENT DECLINED BROCHURE PROVIDED TO PATIENTYES RESTORATIONIST [id number] SCIENTOLOGIST LANGUAGE LANGUAGES SPOKEN:MALTESE EDUCATION LEVEL OF EDUCATION:HIGH SCHOOL LEARNING BARRIERS / SPECIAL NEEDS BARRIERS TO LEARNING?NO HEARING IMPAIRED?NO VISION IMPAIRED?YES COGNITIVELY IMPAIRED?NO : CORRECTIVE LENSES FOR READING READINESS TO LEARN?YES LEARNING PREFERENCES?NO LEARNING CAPABILITIES PRESENT?YES EMOTIONAL BARRIERS?NO SPECIAL DEVICES?NO VEGETABLE PACKER NEEDED?NO DOMESTIC VIOLENCE DO YOU FEEL SAFE IN YOUR ENVIRONMENT?YES 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 MARITAL STATUS: . OTHERS AT HOME: NONE. NEW PATIENT PAIN DIARY PATIENT DESCRIBES PAIN :HAVE IT ALL THE TIME, SHARP, SHOOTING FROM 0-10, WHAT LEVEL IS YOUR PAIN TODAY?7 PRECIPITATING FACTORS BENDING OVER ALLEVIATING FACTORS RESTING IMPACT ON FUNCTION YES PAIN CLINIC PFS, CLERGY, PUBLIC HEALTH REFERRALS PFS REFERRAL NEEDED?NO CLERGY REFERRAL NEEDED?NO PUBLIC HEALTH REFERRAL NEEDED?NO WAS THE PROVIDER NOTIFIED OF ANY PERTINENT INFO? N/A HAS THE PATIENT BEEN EDUCATED REGARDING HIS/HER PLAN OF CARE?YES USING HEATING PAD HAS THE PATIENT BEEN EDUCATED REGARDING PAIN, THE RISK FOR PAIN, THE IMPORTANCE OF EFFECTIVE PAIN MANAGEMENT, AND THE PAIN ASSESSMENT PROCESS?YES ADVANCE DIRECTIVE ADVANCE DIRECTIVE DISCUSSED WITH PATIENT:YES PT DOES NOT HAVE ANY ADVANCED DIRECTIVES AND HE DECLINES INFORMATION ON HCP OR ASSISTANCE AT THIS TIME. REVIEWED WITH PATIENT 07/24/18 0935 JSREVIEWED WITH PATIEBT 08/19/18 1211 LASREVIEWED WITH PATIENT 10/30/18 0959 BVREVIEWED WITH PT 12/04/18 1128 BVREVIEWED WITH PT 04/23/19 0940 LASREVIEWED WITH PATIENT 06/25/19 LASREVIEWED WITH PATIENT 08/18/19 1431 JS. HOSPITALIZATION/MAJOR DIAGNOSTIC PROCEDURE SURGERY - RELATED 2002 REVIEW OF SYSTEMS REVIEWED BY: PROVIDER: BESS LEES . CONSTITUTIONAL: ANY CHANGE IN YOUR MEDICAL CONDITION? NO . CHILLS NO . FEVER NO . INFECTION: DO YOU HAVE NEW INFECTIONS? NO . DO YOU HAVE HISTORY OF MRSA? NO . MUSCULOSKELETAL: ANY NEW PATTERNS OF PAIN OR NUMBNESS? NO . GASTROENTEROLOGY: ANY NEW CHANGE IN BOWEL CONTROL? NO . GENITOURINARY: ANY NEW CHANGE IN BLADDER CONTROL? NO . IS THERE A CHANCE YOU COULD BE ? NO . HEMATOLOGY/LYMPH: DO YOU TAKE ANY BLOOD THINNERS? (FOR EXAMPLE- COUMADIN, PLAVIX, AGGRENOX, PLATEL, PRADAXA, OR XARELTO) NO . WHEN WAS YOUR LAST DOSE? DATE: TIME: . NEUROLOGY: HAVE YOU FALLEN IN THE PAST 12 MONTHS? NO . ANY NEW EXTREMITY NUMBNESS OR WEAKNESS? NO . CARDIOLOGY: DO YOU HAVE A PACEMAKER OR DEFIBRILLATOR? NO . RESPIRATORY: HAVE YOU BEEN SICK IN THE PAST WEEK? NO . FEVER NO . FLU LIKE SYMPTOMS? NO . COUGH NO . INTEGUMENTARY: DO YOU HAVE ANY RASHES OR OPEN SORES? NO . ALLERGIC/IMMUNO: ARE YOU ALLERGIC TO IV DYE? NO . ANY NEW ALLERGIES? NO . PSYCHIATRIC: DO YOU HAVE THOUGHTS OF HURTING YOURSELF OR SOMEONE ELSE? NO . ARE YOU ABUSED, NEGLECTED, OR IN AN UNSAFE ENVIRONMENT? NO . ENDOCRINOLOGY: ARE YOU DIABETIC? NO . OTHER: DO YOU NEED ANY PRESCRIPTIONS? NO . IF YES, PLEASE LIST: ____ . ANY NEW PROBLEMS WITH YOUR MEDICATIONS? YES, PT C/O FEELING JITTERY WHILE ON TRAMADOL . WHEN DID YOU LAST EAT? ____ . WHEN DID YOU LAST DRINK? ____ . WHAT DID YOU LAST DRINK? ____ . NAME OF PERSON DRIVING YOU HOME? ____ . DO YOU HAVE ANY OTHER QUESTIONS OR CONCERNS NO . VITAL SIGNS WT 263.0 LBS, HT 71", BMI 36.68 INDEX, BP 158/94 MM HG, REPEAT BP 124/92 MM HG, HR 103 /MIN, RR 18 /MIN, TEMP 95.4 F, OXYGEN SAT % 97%, SAFE IN ENV? (Y/N) Y, NA INITIALS AW 0902, REVIEWED BY: LENORA B/P WAS MANUAL. EM. EXAMINATION GENERAL EXAMINATION: GENERALNO ACUTE DISTRESS, WELL NOURISHED AND HYDRATED. PSYCHAPPROPRIATE MOOD AND AFFECT . LUNGS:CLEAR TO AUSCULTATION BILATERALLY, NO WHEEZES, RHONCHI, RALES. HEART:NO MURMURS, REGULAR RATE AND RHYTHM. ASSESSMENTS SPONDYLOSIS OF LUMBOSACRAL REGION WITHOUT MYELOPATHY OR RADICULOPATHY - M47.817 (PRIMARY) TREATMENT SPONDYLOSIS OF LUMBOSACRAL REGION WITHOUT MYELOPATHY OR RADICULOPATHY STOP TRAMADOL HCL TABLET, 50 MG, 1 TABLET NEEDED, ORALLY, BID START NORCO TABLET, 5-325 MG, 1 TABLET NEEDED, ORALLY, BID, 30 DAYS, 60 TABLET CLINICAL NOTES: 54-YEAR-OLD MALE IN FOR CHRONIC PAIN FOLLOW-UP. GIVEN PRESENTING SYMPTOMS RECOMMEND STOPPING TRAMADOL AND STARTING HYDROCODONE 5 MG/325 MG 1 TABLET TWICE A DAY NEEDED FOR PAIN WITH FOLLOW-UP IN 2 MONTHS TO DETERMINE EFFICACY TREATMENT. PATIENT HAS EXPRESSED UNDERSTANDING OF AND WAS IN AGREEMENT WITH TREATMENT PLAN. GIVEN TIME TO ASK QUESTIONS AND EXPRESS CONCERNS., ISTOP REGISTRY REVIEWED AND DEMONSTRATES COMPLLIANCE. (REF # [id number] ) BRINGS IN MEDICATIONS WHICH IS APPROPRIATE FOR WHAT WAS DISPENSED. RECENT URINE TOXICOLOGY REVIEWED. NO UNAUTHORIZED MEDICATIONS. NO ILLICIT SUBSTANCES AND PRESCRIBED MEDICATIONS WERE PRESENT. OTHERS NOTES: HYDROCODONE MATERIAL WAS PRINTED. PROCEDURE CODES FA211 ESTABILISHED PATIENT [facility] CHARGE DISPOSITION & COMMUNICATION FOLLOW UP 2 MONTHS (REASON: BACK PAIN, NEW MEDICATION) ELECTRONICALLY SIGNED BY RINA MIRELES ON 01/11/2020 AT 08:17 AM EDT DISCLAIMER : THIS IS A VISIT SUMMARY EXTRACTED FROM THE [employer] CHART. IT IS NOT A COPY OF THE [employer] PROGRESS NOTE. NATE
== END ==
LOC: M PAIN 09:00
PROVIDERS: ATTEND Family Medicine
DX: M47.817 Spondylosis without myelopathy or radiculopathy, lumbosacral region (principal); G89.29 Other chronic pain; I10 Essential (primary) hypertension; Z79.899 Other long term (current) drug therapy

== ENCOUNTER → 2020-02-03 | Outpatient (REF) | payer BC ==
[2020-02-03 20:07] LABS: CHLAMYDIA DNA AMPLIFICATION NEGATIVE (NEGATIVE); GC DNA AMPLIFICATION NEGATIVE (NEGATIVE)
[2020-02-05 11:08] LABS: HIV 1&2 SCREEN CENTAUR NEGATIVE (NEGATIVE)
== END ==
LOC: M LAB REF 17:12 → M LABDRWAD 17:12
PROVIDERS: ATTEND Physician Assistant
DX: Z72.51 High risk heterosexual behavior (principal)
CPT/HCPCS: 36415; 86780; 87389; 87491; 87591; G0472

== ENCOUNTER → 2020-03-24 | Outpatient (CLI) | payer BC ==
--- NOTE | 2020-03-29 07:07 | ECWPNPC ---
PATIENT NAME: ROOSEVELT WATKINS : 1965 GENDER: MALE VISIT DATE: 03/24/2020 DISCHARGE DATE: 03/24/20 1413 VISIT LOCKED DATE TIME: PHYSICIAN: JC KAHN RESOURCE: JC KAHN REASON FOR APPOINTMENT 1. BACK PAIN, NEW MEDICATION HISTORY OF PRESENT ILLNESS GENERAL: - 54-YEAR-OLD MALE IN FOR CHRONIC PAIN FOLLOW-UP. HE RATES HIS PAIN CURRENTLY AT A 9 OUT OF 10 AND DESCRIBES IT SHARP, STABBING, AND CONTINUOUS. HE FEELS THE HYDROCODONE IS HELPFUL BUT DOES STATE IT MAKES HIM CONSTIPATED. HE DOES ADMIT TO INCREASED LOW BACK PAIN ALTHOUGH HE IS UNSURE WHAT EXACERBATED HIS SYMPTOMS. FALL RISK SCREENING: SCREENING :NO FALLS REPORTED IN THE LAST YEAR NURSING NOTE: -. PAIN CENTER INTAKE QUESTIONS: DO YOU HAVE A HISTORY OF MRSA? :NO DO YOU TAKE A BLOOD THINNERS? :NO DO YOU HAVE ANY BLEEDING DISORDERS? :NO ANY NEW NUMBNESS OR WEAKNESS IN YOUR LEGS OR ARMS? :NO ANY PACEMAKER,DEFIBRILLATOR, OR DORSAL COLUMN STIMULATOR? :NO DO YOU HAVE ANY RASHES OR OPEN SORES? :NO ARE YOU ALLERGIC TO IV DYE? :NO ARE YOU DIABETIC? :NO ANY NEW PROBLEMS WITH YOUR MEDICATIONS? :NO HAVE YOU RECEIVED A VACCINE IN THE PAST 30 DAYS? :YES IF SO WHAT VACCINE AND WHEN? RABIES #2 SHOT, 03/22/20 DO YOU PLAN TO RECEIVE A VACCINE IN THE NEXT 21 DAYS? :NO DO YOU NEED ANY PRESCRIPTION? :NO DO YOU TAKE ANY IMMUNOSUPPRESSIVE MEDICATIONS? :NO IS THERE A CHANCE YOU COULD BE ? :NO ARE YOU BREAST FEEDING? :NO PAIN SCREENING: PATIENT HAS A COMPLAINT OF ACUTE OR CHRONIC PAIN :YES LOCATION OF PAIN:LOW BACK INTENSITY OF PAIN (SCALE OF 1 TO 10):9 WHAT DOES YOUR PAIN FEEL LIKE:CONTINOUS, SHARP, STABBING DURATION:CONTINOUS, CONSTANT, ALL DAY PAIN IS INCREASED BY:ACTIVITIES, PROLONGED STANDING PAIN IS DECREASED BY:USE OF PAIN MEDICATIONS PAIN HAS INTERFERED WITH THE FOLLOWING:MOOD, HOUSEWORK, RELATIONSHIP WITH OTHERS, ENJOYMENT OF LIFE PLAN/GOALS/TREATMENT/INTERVENTION/FOLLOW UP:SEE PLAN CURRENT MEDICATIONS TAKING ADVIL 200 MG TABLET 2 TABLET WITH FOOD OR MILK NEEDED ORALLY BID TAKING FUROSEMIDE 20 MG TABLET 1 TABLET ORALLY ONCE A DAY TAKING NORCO 5-325 MG TABLET 1 TABLET NEEDED ORALLY BID TAKING LISINOPRIL-HYDROCHLOROTHIAZIDE 20-25 MG TABLET 1 TABLET ORALLY ONCE A DAY NOT-TAKING MELOXICAM 15 MG TABLET 1 TABLET ORALLY ONCE A DAY NOT-TAKING LIPO-FLAVONOID PLUS - TABLET 2 CAP ORALLY DAILY MEDICATION LIST REVIEWED AND RECONCILED WITH THE PATIENT PAST MEDICAL HISTORY MORBID OBESITY 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, NL T SPINE 09/08 X RAYS 10/10 ECHO NL EF, TRACE MR, MILDLY DILATED LA, ELEVATED CVP, IVC MILDLY ENLARGED HYPERTRIGLYCERIDEMIA DDD HAYFEVER ESSENTIAL HYPERTENSION CHRONIC VENOUS ISUFFICIENCY TINNITUS UMBILICAL HERNIA ALLERGIES ENVIRONMENTAL: NASAL CONGESTION, ITCHY EYES, SNEEZING - ALLERGY SURGICAL HISTORY X5 R KNEE ACL,ARTHROSCOPIC BACK INJECTIONS X3 ON RIGHT AND LEFT COLONOSCOPY 10/11/18 UMBILICAL HERNIA REPAIR 09/21/19 FAMILY HISTORY FATHER: ALIVE 80 YRS, HTN, HEARING LOSS, DIAGNOSED WITH HYPERTENSION MOTHER: ALIVE 77 YRS, UNKNOWN SIBLINGS: ALIVE, YOUNGEST BROTHER - GB ISSUES YOUNGER BROTHER - MILD STROKE DAUGHTER(S): ALIVE, 11/12/1990 - HEALTHY 11/07/2001 - HEALTHY MATERNAL AUNT: OTHER MALIGNANT NEOPLASM OF UNSPECIFIED SITE 2 BROTHER(S) . 2DAUGHTER(S) - HEALTHY. OLDEST DAUGHTER - CHRON\\'S DISEASE _ _HAD BOWEL RESECTION. SOCIAL HISTORY GENERAL: TOBACCO USE ARE YOU A:NONSMOKER LATEX QUESTIONNAIRE LATEX ALLERGY : HAVE YOU EVER DEVELOPED ANY TYPE OF REACTION AFTER HANDLING LATEX PRODUCTS SUCH RUBBER GLOVES, CONDOMS, DIAPHRAGMS, BALLOONS, SOCKS, OR UNDERWEAR?NO LATEX ALLERGY : HAVE YOU EVER DEVELOPED ANY TYPE OF REACTION DURING OR AFTER DENTAL APPOINTMENT, VAGINAL/RECTAL EXAMINATION, SURGICAL PROCEDURE, OR ANY OTHER EXPOSURE?NO LATEX RISK : HAVE YOU EVER HAD ANY DIFFICULTY BREATHING OR HIVES AFTER EATING OR HANDLING ANY FRUITS, OR VEGETABLES; SUCH KIWI, BANANAS, STONE FRUITS, OR CHESTNUTSNO LATEX RISK : DO YOU HAVE A PREVIOUS PERSONAL HISTORY OF MORE THAN NINE SURGERIES, SPINA BIFIDA, OR REPEATED CATHERIZATIONS? NO LATEX RISK : ARE YOU FREQUENTLY EXPOSED TO LATEX PRODUCTS IN YOUR OCCUPATION?NO DATE ASKED : 03/24/2020 LUNG CANCER SCREENING SMOKING STATUS:NON SMOKER BMI CARE GOAL FOLLOW-UP ABOVE NORMAL BMI FOLLOW-UPGIVING ENCOURAGEMENT TO EXERCISE ALCOHOL SCREENING DID YOU HAVE A DRINK CONTAINING ALCOHOL IN THE PAST YEAR?YES HOW OFTEN DID YOU HAVE SIX OR MORE DRINKS ON ONE OCCASION IN THE PAST YEAR?NEVER (0 POINTS) HOW MANY DRINKS DID YOU HAVE ON A TYPICAL DAY WHEN YOU WERE DRINKING IN THE PAST YEAR?3 OR 4 (1 POINT) HOW OFTEN DID YOU HAVE A DRINK CONTAINING ALCOHOL IN THE PAST YEAR?MONTHLY OR LESS (1 POINT) POINTS2 INTERPRETATIONNEGATIVE RECREATIONAL DRUG USE DRUG USE?NO CAFFEINE CAFFEINE USE?YES HOW OFTEN AND HOW MUCH? OCCASIONALLY SEXUAL HX HAD SEX IN THE LAST 12 MONTHS (VAGINAL, ORAL, OR ANAL)?YES WITHWOMEN ONLY USE PROTECTION?NO HAVE YOU EVER HAD AN STD?NO HIV / HEP-C SCREENING HIV TEST OFFERED TO PATIENT:YES DATE OFFERED:08/29/2017 TEST ACCEPTED:NO HEP-C TEST OFFERED TO PATIENT:YES DATE OFFERED:08/29/2017 REASON:PATIENT DECLINED PREVIOUSLY DONE TEST ACCEPTED:NO PREVIOUSLY DONE REASON:PATIENT DECLINED BROCHURE PROVIDED TO PATIENTYES ORTHODOX [id number] MANDAEISM LANGUAGE LANGUAGES SPOKEN:ARABIC EDUCATION LEVEL OF EDUCATION:HIGH SCHOOL LEARNING BARRIERS / SPECIAL NEEDS BARRIERS TO LEARNING?NO HEARING IMPAIRED?NO VISION IMPAIRED?YES COGNITIVELY IMPAIRED?NO : CORRECTIVE LENSES FOR READING READINESS TO LEARN?YES LEARNING PREFERENCES?NO LEARNING CAPABILITIES PRESENT?YES EMOTIONAL BARRIERS?NO SPECIAL DEVICES?NO ELECTRICIAN UNDERGROUND NEEDED?NO DOMESTIC VIOLENCE DO YOU FEEL SAFE IN YOUR ENVIRONMENT?YES 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 MARITAL STATUS: . OTHERS AT HOME: NONE. NEW PATIENT PAIN DIARY PATIENT DESCRIBES PAIN :HAVE IT ALL THE TIME, SHARP, SHOOTING FROM 0-10, WHAT LEVEL IS YOUR PAIN TODAY?7 PRECIPITATING FACTORS BENDING OVER ALLEVIATING FACTORS RESTING IMPACT ON FUNCTION YES PAIN CLINIC PFS, CLERGY, PUBLIC HEALTH REFERRALS PFS REFERRAL NEEDED?NO CLERGY REFERRAL NEEDED?NO PUBLIC HEALTH REFERRAL NEEDED?NO WAS THE PROVIDER NOTIFIED OF ANY PERTINENT INFO? N/A HAS THE PATIENT BEEN EDUCATED REGARDING HIS/HER PLAN OF CARE?YES USING HEATING PAD HAS THE PATIENT BEEN EDUCATED REGARDING PAIN, THE RISK FOR PAIN, THE IMPORTANCE OF EFFECTIVE PAIN MANAGEMENT, AND THE PAIN ASSESSMENT PROCESS?YES ADVANCE DIRECTIVE ADVANCE DIRECTIVE DISCUSSED WITH PATIENT:YES PT DOES NOT HAVE ANY ADVANCED DIRECTIVES AND HE DECLINES INFORMATION ON HCP OR ASSISTANCE AT THIS TIME. HOSPITALIZATION/MAJOR DIAGNOSTIC PROCEDURE SURGERY - RELATED 2002 REVIEW OF SYSTEMS CONSTITUTIONAL: ANY RECENT FEVER NO . CHILLS NO . WEIGHT CHANGE OF UNKNOWN REASONS NO . GASTROENTEROLOGY: NEW UNEXPLAINABLE CHANGES IN BOWEL CONTROL NO . CONSTIPATION NO . GENITOURINARY: ANY NEW CHANGE IN BLADDER CONTROL? NO . NEUROLOGY: NEW ONSET DIZZINESS OR NEUROLOGICAL CHANGES NOT MENTIONED NO . NEW NUMBNESS OR PAIN PATTERNS NOT MENTIONED AND PERTINENT TO TODAY'S VISIT NO . CARDIOLOGY: NEW CHEST PRESSURE NO . NEW CHEST PAIN NO . RESPIRATORY: UNEXPLAINABLE COUGH NO . NEW SHORTNESS OF BREATH NO . VITAL SIGNS WT 262.2 LBS, HT 71", BMI 36.57 INDEX, BP 141/81 MM HG, HR 88 /MIN, RR 18 /MIN, TEMP 98.2 F, OXYGEN SAT % 96%, NA INITIALS SC 13:42. EXAMINATION GENERAL EXAMINATION: GENERALNO ACUTE DISTRESS, WELL NOURISHED AND HYDRATED. PSYCHAPPROPRIATE MOOD AND AFFECT . LUNGS:CLEAR TO AUSCULTATION BILATERALLY, NO WHEEZES, RHONCHI, RALES. HEART:NO MURMURS, REGULAR RATE AND RHYTHM. ASSESSMENTS INTERVERTEBRAL DISC DISORDER WITH RADICULOPATHY OF LUMBAR REGION - M51.16 (PRIMARY) TREATMENT INTERVERTEBRAL DISC DISORDER WITH RADICULOPATHY OF LUMBAR REGION START CYCLOBENZAPRINE HCL TABLET, 10 MG, 1 TABLET AT BEDTIME NEEDED, ORALLY, THREE TIMES DAILY NEEDED, 30 DAY(S), 90 CLINICAL NOTES: 54-YEAR-OLD MALE IN FOR CHRONIC PAIN FOLLOW-UP. GIVEN PRESENTING SYMPTOMS RECOMMENDED FLEXERIL 10 MG 3 TIMES A DAY WITH FOLLOW-UP IN 2 MONTHS TO DETERMINE EFFICACY OF TREATMENT. PATIENT HAS EXPRESSED UNDERSTANDING OF AND WAS IN AGREEMENT WITH TREATMENT PLAN. GIVEN TIME TO ASK QUESTIONS AND EXPRESS CONCERNS. , ISTOP REGISTRY REVIEWED AND DEMONSTRATES COMPLLIANCE. (REF # [id number] ) BRINGS IN MEDICATIONS WHICH IS APPROPRIATE FOR WHAT WAS DISPENSED. RECENT URINE TOXICOLOGY REVIEWED. NO UNAUTHORIZED MEDICATIONS. NO ILLICIT SUBSTANCES AND PRESCRIBED MEDICATIONS WERE PRESENT. DISPOSITION & COMMUNICATION FOLLOW UP 2 MONTHS (REASON: BACK PAIN, NEW MEDICATION) ELECTRONICALLY SIGNED BY RINA MIRELES ON 03/28/2020 AT 08:54 AM EDT DISCLAIMER : THIS IS A VISIT SUMMARY EXTRACTED FROM THE [employer] CHART. IT IS NOT A COPY OF THE [employer] PROGRESS NOTE. NATE
== END ==
LOC: M PAIN 14:15
PROVIDERS: ATTEND Family Medicine
DX: M51.16 Intervertebral disc disorders with radiculopathy, lumbar region (principal)

== ENCOUNTER 2020-07-12 17:59 | Emergency (ER) | payer OTHER, BC ==
[~2020-07-12] VITALS: Ht 180.3 cm; Wt 155.6 kg
--- NOTE | 2020-07-12 19:29 | REPVR ---
PROCEDURE INFORMATION: Exam: XR Right Knee Exam date and time: 07/12/2020 6:40 PM Age: 54 years old Clinical indication: Pain; Knee; Right TECHNIQUE: Imaging protocol: XR Right knee. Views: 4 or more views. COMPARISON: No relevant prior studies available. FINDINGS: Bones/joints: There is no acute fracture. No dislocation. Normal alignment. Very small osteophytes at the tibial eminences and patellofemoral interval. No significant joint space narrowing. Postoperative changes from anterior cruciate ligament reconstruction, with metallic bracket in the distal femoral metaphysis and lucency from femoral and tibial tunnels. Soft tissues: Normal. IMPRESSION: 1. No acute fracture. 2. Status post ACL reconstruction. Electronically signed by: Maria Esther Duque On 07/12/2020 19:29:35 PM
[2020-07-12] MEDS ORDERED: KETOROLAC 60MG 2ML VIAL IM ONE (19:30)
[2020-07-12 20:03] VITALS: BP 133/89
== END 2020-07-12 20:03 | disposition home or self-care (01) ==
LOC: M ED 17:59
DX: S89.91XA Unspecified injury of right lower leg, initial encounter (principal); X50.0XXA Overexertion from strenuous movement or load, initial encounter; Y92.9 Unspecified place or not applicable; Y99.0 Civilian activity done for income or pay; I10 Essential (primary) hypertension; Z79.899 Other long term (current) drug therapy
CPT/HCPCS: 73564; 96372; 99284; J1885

== ENCOUNTER → 2020-08-15 | Outpatient (REF) | payer BC ==
[2020-08-15 12:32] LABS: BASO # 0.1 10^3/uL (0.0-0.2); BASO % 0.7 % (0.0-1.0); EOS # 0.3 10^3/uL (0.0-0.5); EOS % 3.8 % (0.0-3.0); HEMATOCRIT 44.4 % (42.0-52.0); HEMOGLOBIN 14.9 g/dl (13.5-17.5); LYMPH # 3.2 10^3/uL (1.5-5.0); LYMPH % 37.8 % (24.0-44.0); MEAN CORPUSCULAR HEMOGLOBIN 31.8 pg (27.0-33.0); MEAN CORPUSCULAR HGB CONC 33.6 g/dl (32.0-36.5); MEAN CORPUSCULAR VOLUME 94.7 fl (80.0-96.0); MONO # 0.8 10^3/uL (0.0-0.8); MONO % 9.1 % (0.0-5.0); NEUTROPHILS % 48.1 % (36.0-66.0); PLATELET COUNT, AUTOMATED 316 10^3/uL (150-450); RED BLOOD COUNT 4.69 10^6/uL (4.30-6.10); WHITE BLOOD COUNT 8.3 10^3/uL (4.0-10.0)
[2020-08-15 15:55] LABS: ALBUMIN 3.8 GM/DL (3.2-5.2); ALT/SGPT 46 U/L (12-78); BILIRUBIN,TOTAL 0.6 MG/DL (0.2-1.0); BLOOD UREA NITROGEN 22 MG/DL (7-18); CALCIUM LEVEL 9.6 MG/DL (8.5-10.1); CARBON DIOXIDE LEVEL 27 MEQ/L (21-32); CHLORIDE LEVEL 105 MEQ/L (98-107); CHOLESTEROL LEVEL 188 MG/DL (<200); CHOLESTEROL RISK RATIO 5.222 (<5); CREATININE FOR GFR 1.23 MG/DL (0.70-1.30); GLOMERULAR FILTRATION RATE > 60.0 (>56); GLUCOSE, FASTING 93 MG/DL (70-100); HDL CHOLESTEROL 36 MG/DL (>40); NON-HDL-C 152 MG/DL; POTASSIUM SERUM 4.8 MEQ/L (3.5-5.1); SODIUM LEVEL 139 MEQ/L (136-145); TOTAL PROTEIN 6.8 GM/DL (6.4-8.2); TRIGLYCERIDES LEVEL 504 MG/DL (<150)
== END ==
LOC: M SFHCADAM 08:24
PROVIDERS: ATTEND Physician Assistant Medical
DX: E66.01 Morbid (severe) obesity due to excess calories (principal); I10 Essential (primary) hypertension; E78.1 Pure hyperglyceridemia

== ENCOUNTER → 2020-09-07 | Outpatient (CLI) | payer BC ==
--- NOTE | 2020-09-09 01:15 | ECWPNPC ---
PATIENT NAME: ROOSEVELT WATKINS : 1965 GENDER: MALE VISIT DATE: 09/07/2020 DISCHARGE DATE: 09/07/20 1600 VISIT LOCKED DATE TIME: PHYSICIAN: JC KAHN PHYSICIAN PAGER NO: ACTIVE RESOURCE: JC KAHN REASON FOR APPOINTMENT 1. BACK PAIN HISTORY OF PRESENT ILLNESS GENERAL: - 54-YEAR-OLD MALE IN FOR CHRONIC PAIN FOLLOW-UP. HE RATES HIS PAIN CURRENTLY AT A 7/10 AND DESCRIBES IT CONTINOUS AND SHARP. HE FEELS MEDICATIONS ARE HELPFUL AND DENIES MED SIDE EFFECTS AT THIS TIME. FALL RISK SCREENING: SCREENING :NO FALLS REPORTED IN THE LAST YEAR PAIN SCREENING: PATIENT HAS A COMPLAINT OF ACUTE OR CHRONIC PAIN :YES LOCATION OF PAIN:LOW BACK, LEG(S) INTENSITY OF PAIN (SCALE OF 1 TO 10):7 WHAT DOES YOUR PAIN FEEL LIKE:CONTINOUS, SHARP DURATION:CONTINOUS, CONSTANT PAIN IS INCREASED BY:OTHERS BENDING OVER PAIN IS DECREASED BY:OTHERS HEAT TREATMENT/MEDICATIONS USED TO MANAGE PAIN:OTC PAIN RELIEVERS LEVEL OF RELIEF FROM PAIN TREATMENTS IN THE PAST:0% PAIN HAS INTERFERED WITH THE FOLLOWING: NO NURSING NOTE: -. PAIN CENTER INTAKE QUESTIONS: DO YOU HAVE A HISTORY OF MRSA? :NO DO YOU TAKE A BLOOD THINNERS? :NO DO YOU HAVE ANY BLEEDING DISORDERS? :NO ANY NEW NUMBNESS OR WEAKNESS IN YOUR LEGS OR ARMS? :YES RIGHT LEG ANY PACEMAKER,DEFIBRILLATOR, OR DORSAL COLUMN STIMULATOR? :NO DO YOU HAVE ANY RASHES OR OPEN SORES? :NO ARE YOU ALLERGIC TO IV DYE? :NO ARE YOU DIABETIC? :NO ANY NEW PROBLEMS WITH YOUR MEDICATIONS? :NO HAVE YOU RECEIVED A VACCINE IN THE PAST 30 DAYS? :NO DO YOU PLAN TO RECEIVE A VACCINE IN THE NEXT 21 DAYS? :NO DO YOU NEED ANY PRESCRIPTION? :YES HYDROCODONE, CYCLOBENZAPRINE DO YOU TAKE ANY IMMUNOSUPPRESSIVE MEDICATIONS? :NO IS THERE A CHANCE YOU COULD BE ? :NO ARE YOU BREAST FEEDING? :NO CURRENT MEDICATIONS TAKING MELOXICAM 15 MG TABLET 1 TABLET ORALLY ONCE A DAY TAKING LISINOPRIL-HYDROCHLOROTHIAZIDE 20-25 MG TABLET 1 TABLET ORALLY ONCE A DAY NOT-TAKING ADVIL 200 MG TABLET 2 TABLET WITH FOOD OR MILK NEEDED ORALLY BID NOT-TAKING FUROSEMIDE 20 MG TABLET 1 TABLET ORALLY ONCE A DAY NOT-TAKING NORCO 5-325 MG TABLET 1 TABLET NEEDED ORALLY BID NOT-TAKING CYCLOBENZAPRINE HCL 10 MG TABLET 1 TABLET AT BEDTIME NEEDED ORALLY THREE TIMES DAILY NEEDED NOT-TAKING MELOXICAM 15 MG TABLET 1 TABLET ORALLY ONCE A DAY NOT-TAKING LIPO-FLAVONOID PLUS - TABLET 2 CAP ORALLY DAILY MEDICATION LIST REVIEWED AND RECONCILED WITH THE PATIENT PAST MEDICAL HISTORY MORBID OBESITY 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, NL T SPINE 09/08 X RAYS 10/10 ECHO NL EF, TRACE MR, MILDLY DILATED LA, ELEVATED CVP, IVC MILDLY ENLARGED HYPERTRIGLYCERIDEMIA DDD HAYFEVER ESSENTIAL HYPERTENSION CHRONIC VENOUS ISUFFICIENCY TINNITUS UMBILICAL HERNIA RIGHT KNEE MENISCUS TEAR ALLERGIES ENVIRONMENTAL: NASAL CONGESTION, ITCHY EYES, SNEEZING - ALLERGY SURGICAL HISTORY X5 R KNEE ACL,ARTHROSCOPIC BACK INJECTIONS X3 ON RIGHT AND LEFT COLONOSCOPY 10/11/18 UMBILICAL HERNIA REPAIR 09/21/19 FAMILY HISTORY FATHER: ALIVE 80 YRS, HTN, HEARING LOSS, DIAGNOSED WITH HYPERTENSION MOTHER: ALIVE 77 YRS, UNKNOWN SIBLINGS: ALIVE, YOUNGEST BROTHER - GB ISSUES YOUNGER BROTHER - MILD STROKE DAUGHTER(S): ALIVE, 11/12/1990 - HEALTHY 11/07/2001 - HEALTHY MATERNAL AUNT: OTHER MALIGNANT NEOPLASM OF UNSPECIFIED SITE 2 BROTHER(S) . 2DAUGHTER(S) - HEALTHY. OLDEST DAUGHTER - CHRON\\'S DISEASE _ _HAD BOWEL RESECTION YOUNGEST BROTHER DX W DM, ON INSULIN. SOCIAL HISTORY GENERAL: TOBACCO USE ARE YOU A:NONSMOKER LATEX QUESTIONNAIRE LATEX ALLERGY : HAVE YOU EVER DEVELOPED ANY TYPE OF REACTION AFTER HANDLING LATEX PRODUCTS SUCH RUBBER GLOVES, CONDOMS, DIAPHRAGMS, BALLOONS, SOCKS, OR UNDERWEAR?NO LATEX ALLERGY : HAVE YOU EVER DEVELOPED ANY TYPE OF REACTION DURING OR AFTER DENTAL APPOINTMENT, VAGINAL/RECTAL EXAMINATION, SURGICAL PROCEDURE, OR ANY OTHER EXPOSURE?NO DATE ASKED : 03/24/2020 LATEX RISK : HAVE YOU EVER HAD ANY DIFFICULTY BREATHING OR HIVES AFTER EATING OR HANDLING ANY FRUITS, OR VEGETABLES; SUCH KIWI, BANANAS, STONE FRUITS, OR CHESTNUTSNO LATEX RISK : DO YOU HAVE A PREVIOUS PERSONAL HISTORY OF MORE THAN NINE SURGERIES, SPINA BIFIDA, OR REPEATED CATHERIZATIONS? NO LATEX RISK : ARE YOU FREQUENTLY EXPOSED TO LATEX PRODUCTS IN YOUR OCCUPATION?NO LUNG CANCER SCREENING SMOKING STATUS:NON SMOKER BMI CARE GOAL FOLLOW-UP ABOVE NORMAL BMI FOLLOW-UPGIVING ENCOURAGEMENT TO EXERCISE ALCOHOL SCREENING DID YOU HAVE A DRINK CONTAINING ALCOHOL IN THE PAST YEAR?YES HOW OFTEN DID YOU HAVE SIX OR MORE DRINKS ON ONE OCCASION IN THE PAST YEAR?NEVER (0 POINTS) HOW MANY DRINKS DID YOU HAVE ON A TYPICAL DAY WHEN YOU WERE DRINKING IN THE PAST YEAR?3 OR 4 (1 POINT) HOW OFTEN DID YOU HAVE A DRINK CONTAINING ALCOHOL IN THE PAST YEAR?MONTHLY OR LESS (1 POINT) POINTS2 INTERPRETATIONNEGATIVE RECREATIONAL DRUG USE DRUG USE?NO CAFFEINE CAFFEINE USE?YES HOW OFTEN AND HOW MUCH? OCCASIONALLY SEXUAL HX HAD SEX IN THE LAST 12 MONTHS (VAGINAL, ORAL, OR ANAL)?YES WITHWOMEN ONLY USE PROTECTION?NO HAVE YOU EVER HAD AN STD?NO HIV / HEP-C SCREENING HIV TEST OFFERED TO PATIENT:YES DATE OFFERED:08/29/2017 TEST ACCEPTED:NO HEP-C TEST OFFERED TO PATIENT:YES DATE OFFERED:08/29/2017 REASON:PATIENT DECLINED PREVIOUSLY DONE TEST ACCEPTED:NO PREVIOUSLY DONE REASON:PATIENT DECLINED BROCHURE PROVIDED TO PATIENTYES ISLAM [id number] RASTAFARI LANGUAGE LANGUAGES SPOKEN:SAMI EDUCATION LEVEL OF EDUCATION:HIGH SCHOOL LEARNING BARRIERS / SPECIAL NEEDS BARRIERS TO LEARNING?NO HEARING IMPAIRED?NO VISION IMPAIRED?YES COGNITIVELY IMPAIRED?NO : CORRECTIVE LENSES FOR READING READINESS TO LEARN?YES LEARNING PREFERENCES?NO LEARNING CAPABILITIES PRESENT?YES EMOTIONAL BARRIERS?NO SPECIAL DEVICES?NO HANDS AND DIAL INSPECTOR NEEDED?NO DOMESTIC VIOLENCE DO YOU FEEL SAFE IN YOUR ENVIRONMENT?YES 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 MARITAL STATUS: . OTHERS AT HOME: NONE. PATIENT DESCRIBES PAIN :HAVE IT ALL THE TIME, SHARP, SHOOTING FROM 0-10, WHAT LEVEL IS YOUR PAIN TODAY?7 PRECIPITATING FACTORS BENDING OVER ALLEVIATING FACTORS RESTING IMPACT ON FUNCTION YES PAIN CLINIC PFS, CLERGY, PUBLIC HEALTH REFERRALS PFS REFERRAL NEEDED?NO CLERGY REFERRAL NEEDED?NO PUBLIC HEALTH REFERRAL NEEDED?NO WAS THE PROVIDER NOTIFIED OF ANY PERTINENT INFO? N/A HAS THE PATIENT BEEN EDUCATED REGARDING HIS/HER PLAN OF CARE?YES USING HEATING PAD HAS THE PATIENT BEEN EDUCATED REGARDING PAIN, THE RISK FOR PAIN, THE IMPORTANCE OF EFFECTIVE PAIN MANAGEMENT, AND THE PAIN ASSESSMENT PROCESS?YES ADVANCE DIRECTIVE ADVANCE DIRECTIVE DISCUSSED WITH PATIENT:YES PT DOES NOT HAVE ANY ADVANCED DIRECTIVES AND HE DECLINES INFORMATION ON HCP OR ASSISTANCE AT THIS TIME. HOSPITALIZATION/MAJOR DIAGNOSTIC PROCEDURE SURGERY - RELATED 2002 REVIEW OF SYSTEMS CONSTITUTIONAL: ANY RECENT FEVER NO . CHILLS NO . WEIGHT CHANGE OF UNKNOWN REASONS NO . GASTROENTEROLOGY: NEW UNEXPLAINABLE CHANGES IN BOWEL CONTROL NO . CONSTIPATION NO . GENITOURINARY: ANY NEW CHANGE IN BLADDER CONTROL? NO . NEUROLOGY: NEW ONSET DIZZINESS OR NEUROLOGICAL CHANGES NOT MENTIONED NO . NEW NUMBNESS OR PAIN PATTERNS NOT MENTIONED AND PERTINENT TO TODAY'S VISIT NO . CARDIOLOGY: NEW CHEST PRESSURE NO . NEW CHEST PAIN NO . RESPIRATORY: UNEXPLAINABLE COUGH NO . NEW SHORTNESS OF BREATH NO . VITAL SIGNS WT 267.0 LBS, HT 71", BMI 37.23 INDEX, BP 153/85 MM HG, HR 78 /MIN, RR 18 /MIN, TEMP 96.0 F, OXYGEN SAT % 98%, SAFE IN ENV? (Y/N) Y, NA INITIALS AW 1500, REVIEWED BY: EM. EXAMINATION GENERAL EXAMINATION: GENERALNO ACUTE DISTRESS, WELL NOURISHED AND HYDRATED. PSYCHAPPROPRIATE MOOD AND AFFECT . LUNGS:CLEAR TO AUSCULTATION BILATERALLY, NO WHEEZES, RHONCHI, RALES. HEART:NO MURMURS, REGULAR RATE AND RHYTHM. ASSESSMENTS SPONDYLOSIS OF LUMBOSACRAL REGION WITHOUT MYELOPATHY OR RADICULOPATHY - M47.817 (PRIMARY) INTERVERTEBRAL DISC DISORDER WITH RADICULOPATHY OF LUMBAR REGION - M51.16 TREATMENT SPONDYLOSIS OF LUMBOSACRAL REGION WITHOUT MYELOPATHY OR RADICULOPATHY REFILL NORCO TABLET, 5-325 MG, 1 TABLET NEEDED, ORALLY, BID, 30 DAYS, 60 TABLET NOTES: 54-YEAR-OLD MALE IN FOR CHRONIC PAIN FOLLOW-UP. GIVEN PRESENTING SYMPTOMS RECOMMENDED CONTINUATION CURRENT MEDICATION REGIMEN WITH FOLLOW-UP IN 3 MONTHS. PATIENT HAS EXPRESSED UNDERSTANDING OF AND WAS IN AGREEMENT WITH TREATMENT PLAN. GIVEN TIME TO ASK QUESTIONS AND EXPRESS CONCERNS. , ISTOP REGISTRY REVIEWED AND DEMONSTRATES COMPLLIANCE. (REF # ). INTERVERTEBRAL DISC DISORDER WITH RADICULOPATHY OF LUMBAR REGION REFILL CYCLOBENZAPRINE HCL TABLET, 10 MG, 1 TABLET AT BEDTIME NEEDED, ORALLY, THREE TIMES DAILY NEEDED, 30 DAY(S), 90 PROCEDURE CODES FA211 ESTABILISHED PATIENT [facility] CHARGE DISPOSITION & COMMUNICATION FOLLOW UP 3 MONTHS (REASON: BACK PAIN) ELECTRONICALLY SIGNED BY RINA MIRELES ON 09/08/2020 AT 03:41 PM EST DISCLAIMER : THIS IS A VISIT SUMMARY EXTRACTED FROM THE [email or web address] CHART. IT IS NOT A COPY OF THE [employer] PROGRESS NOTE. [facility]ITALDom[facility]
== END ==
LOC: M PAIN 14:45
PROVIDERS: ATTEND Family Medicine
DX: M47.817 Spondylosis without myelopathy or radiculopathy, lumbosacral region (principal); M51.16 Intervertebral disc disorders with radiculopathy, lumbar region; G89.29 Other chronic pain; Z79.899 Other long term (current) drug therapy

== ENCOUNTER → 2020-12-06 | Outpatient (CLI) | payer BC ==
--- NOTE | 2020-12-08 06:33 | ECWPNPC ---
PATIENT NAME: ROOSEVELT WATKINS : 1965 GENDER: MALE VISIT DATE: 12/06/2020 DISCHARGE DATE: 12/06/20 1536 VISIT LOCKED DATE TIME: PHYSICIAN: JC KAHN PHYSICIAN PAGER NO: ACTIVE RESOURCE: JC KAHN REASON FOR APPOINTMENT 1. 3 MONTHS BACK PAIN HISTORY OF PRESENT ILLNESS PAIN CENTER INTAKE QUESTIONS: 55-YEAR-OLD MALE IN FOR CHRONIC PAIN FOLLOW-UP. PATIENT FEELS THE MEDICATIONS ARE HELPFUL BUT DOES ADMIT THAT HE DOES NOT WANT TO CONTINUE USE HE DOES NOT WANT BECOME DEPENDENT UPON THEM. HE WOULD LIKE TO DISCUSS POTENTIAL REFERRAL FOR SURGICAL INTERVENTION. GENERAL: -. FALL RISK SCREENING: SCREENING ONE FALLS REPORTED IN THE LAST YEAR; 07/12/2020. PATIENT SOUGHT MEDICAL TREATMENT.. PAIN SCREENING: PATIENT HAS A COMPLAINT OF ACUTE OR CHRONIC PAIN :NO NURSING NOTE: -. CURRENT MEDICATIONS TAKING NORCO 5-325 MG TABLET 1 TABLET NEEDED ORALLY BID TAKING CYCLOBENZAPRINE HCL 10 MG TABLET 1 TABLET AT BEDTIME NEEDED ORALLY THREE TIMES DAILY NEEDED TAKING MELOXICAM 15 MG TABLET 1 TABLET ORALLY ONCE A DAY TAKING LISINOPRIL-HYDROCHLOROTHIAZIDE 20-25 MG TABLET 1 TABLET ORALLY ONCE A DAY UNKNOWN ADVIL 200 MG TABLET 2 TABLET WITH FOOD OR MILK NEEDED ORALLY BID UNKNOWN FUROSEMIDE 20 MG TABLET 1 TABLET ORALLY ONCE A DAY UNKNOWN MELOXICAM 15 MG TABLET 1 TABLET ORALLY ONCE A DAY UNKNOWN LIPO-FLAVONOID PLUS - TABLET 2 CAP ORALLY DAILY MEDICATION LIST REVIEWED AND RECONCILED WITH THE PATIENT PAST MEDICAL HISTORY MORBID OBESITY 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, NL T SPINE 09/08 X RAYS 10/10 ECHO NL EF, TRACE MR, MILDLY DILATED LA, ELEVATED CVP, IVC MILDLY ENLARGED HYPERTRIGLYCERIDEMIA DDD HAYFEVER ESSENTIAL HYPERTENSION CHRONIC VENOUS ISUFFICIENCY TINNITUS UMBILICAL HERNIA RIGHT KNEE MENISCUS TEAR ALLERGIES ENVIRONMENTAL: NASAL CONGESTION, ITCHY EYES, SNEEZING - ALLERGY SOCIAL HISTORY GENERAL: TOBACCO USE ARE YOU A:NONSMOKER LATEX QUESTIONNAIRE LATEX ALLERGY : HAVE YOU EVER DEVELOPED ANY TYPE OF REACTION AFTER HANDLING LATEX PRODUCTS SUCH RUBBER GLOVES, CONDOMS, DIAPHRAGMS, BALLOONS, SOCKS, OR UNDERWEAR?NO LATEX ALLERGY : HAVE YOU EVER DEVELOPED ANY TYPE OF REACTION DURING OR AFTER DENTAL APPOINTMENT, VAGINAL/RECTAL EXAMINATION, SURGICAL PROCEDURE, OR ANY OTHER EXPOSURE?NO LATEX RISK : HAVE YOU EVER HAD ANY DIFFICULTY BREATHING OR HIVES AFTER EATING OR HANDLING ANY FRUITS, OR VEGETABLES; SUCH KIWI, BANANAS, STONE FRUITS, OR CHESTNUTSNO LATEX RISK : DO YOU HAVE A PREVIOUS PERSONAL HISTORY OF MORE THAN NINE SURGERIES, SPINA BIFIDA, OR REPEATED CATHERIZATIONS? NO LATEX RISK : ARE YOU FREQUENTLY EXPOSED TO LATEX PRODUCTS IN YOUR OCCUPATION?NO DATE ASKED : 12/06/2020 ALCOHOL USE: OCCASIONAL. LUNG CANCER SCREENING SMOKING STATUS:NON SMOKER BMI CARE GOAL FOLLOW-UP ABOVE NORMAL BMI FOLLOW-UPGIVING ENCOURAGEMENT TO EXERCISE ALCOHOL SCREENING DID YOU HAVE A DRINK CONTAINING ALCOHOL IN THE PAST YEAR?YES HOW OFTEN DID YOU HAVE SIX OR MORE DRINKS ON ONE OCCASION IN THE PAST YEAR?NEVER (0 POINTS) HOW MANY DRINKS DID YOU HAVE ON A TYPICAL DAY WHEN YOU WERE DRINKING IN THE PAST YEAR?3 OR 4 (1 POINT) HOW OFTEN DID YOU HAVE A DRINK CONTAINING ALCOHOL IN THE PAST YEAR?MONTHLY OR LESS (1 POINT) POINTS2 INTERPRETATIONNEGATIVE RECREATIONAL DRUG USE DRUG USE?NO CAFFEINE CAFFEINE USE?YES HOW OFTEN AND HOW MUCH? OCCASIONALLY SEXUAL HX HAD SEX IN THE LAST 12 MONTHS (VAGINAL, ORAL, OR ANAL)?YES WITHWOMEN ONLY USE PROTECTION?NO HAVE YOU EVER HAD AN STD?NO HIV / HEP-C SCREENING HIV TEST OFFERED TO PATIENT:YES DATE OFFERED:08/29/2017 TEST ACCEPTED:NO HEP-C TEST OFFERED TO PATIENT:YES DATE OFFERED:08/29/2017 REASON:PATIENT DECLINED PREVIOUSLY DONE TEST ACCEPTED:NO PREVIOUSLY DONE REASON:PATIENT DECLINED BROCHURE PROVIDED TO PATIENTYES EPISCOPALIAN [id number] SYNAGOGUE LANGUAGE LANGUAGES SPOKEN:ROMANSH EDUCATION LEVEL OF EDUCATION:HIGH SCHOOL LEARNING BARRIERS / SPECIAL NEEDS BARRIERS TO LEARNING?NO HEARING IMPAIRED?NO VISION IMPAIRED?YES : CORRECTIVE LENSES FOR READING COGNITIVELY IMPAIRED?NO READINESS TO LEARN?YES LEARNING PREFERENCES?NO LEARNING CAPABILITIES PRESENT?YES EMOTIONAL BARRIERS?NO SPECIAL DEVICES?YES :BRACE RIGHT LEG BRACE ALTERNATIVE FINANCING SPECIALIST NEEDED?NO DOMESTIC VIOLENCE DO YOU FEEL SAFE IN YOUR ENVIRONMENT?YES 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 MARITAL STATUS: . OTHERS AT HOME: NONE. PATIENT DESCRIBES PAIN :HAVE IT ALL THE TIME, SHARP, SHOOTING FROM 0-10, WHAT LEVEL IS YOUR PAIN TODAY?7 PRECIPITATING FACTORS BENDING OVER ALLEVIATING FACTORS RESTING IMPACT ON FUNCTION YES - PFS REFERRAL NEEDED?NO CLERGY REFERRAL NEEDED?NO PUBLIC HEALTH REFERRAL NEEDED?NO WAS THE PROVIDER NOTIFIED OF ANY PERTINENT INFO? N/A HAS THE PATIENT BEEN EDUCATED REGARDING HIS/HER PLAN OF CARE?YES USING HEATING PAD HAS THE PATIENT BEEN EDUCATED REGARDING PAIN, THE RISK FOR PAIN, THE IMPORTANCE OF EFFECTIVE PAIN MANAGEMENT, AND THE PAIN ASSESSMENT PROCESS?YES ADVANCE DIRECTIVE ADVANCE DIRECTIVE DISCUSSED WITH PATIENT:YES PT DOES NOT HAVE ANY ADVANCED DIRECTIVES AND HE DECLINES INFORMATION ON HCP OR ASSISTANCE AT THIS TIME. REVIEW OF SYSTEMS CONSTITUTIONAL: ANY RECENT FEVER NO . CHILLS NO . WEIGHT CHANGE OF UNKNOWN REASONS NO . GASTROENTEROLOGY: NEW UNEXPLAINABLE CHANGES IN BOWEL CONTROL NO . CONSTIPATION NO . GENITOURINARY: ANY NEW CHANGE IN BLADDER CONTROL? NO . NEUROLOGY: NEW ONSET DIZZINESS OR NEUROLOGICAL CHANGES NOT MENTIONED NO . NEW NUMBNESS OR PAIN PATTERNS NOT MENTIONED AND PERTINENT TO TODAY'S VISIT NO . CARDIOLOGY: NEW CHEST PRESSURE NO . PATIENT DENIES NO . RESPIRATORY: UNEXPLAINABLE COUGH NO . NEW SHORTNESS OF BREATH NO . VITAL SIGNS WT 265 LBS, HT 71", BMI 36.96 INDEX, BP 139/88 MM HG, HR 101 /MIN, RR 18 /MIN, TEMP 98.0 F, OXYGEN SAT % 93%, SAFE IN ENV? (Y/N) YES, NA INITIALS VA 15:04, REVIEWED BY: RONI VILLASENOR MA. EXAMINATION GENERAL EXAMINATION: GENERALNO ACUTE DISTRESS, WELL NOURISHED AND HYDRATED. PSYCHAPPROPRIATE MOOD AND AFFECT . LUNGS:CLEAR TO AUSCULTATION BILATERALLY, NO WHEEZES, RHONCHI, RALES. HEART:NO MURMURS, REGULAR RATE AND RHYTHM. ASSESSMENTS INTERVERTEBRAL DISC DISORDER WITH RADICULOPATHY OF LUMBAR REGION - M51.16 (PRIMARY), RISK: (NULL) TREATMENT INTERVERTEBRAL DISC DISORDER WITH RADICULOPATHY OF LUMBAR REGION NOTES: 55-YEAR-OLD MALE IN FOR CHRONIC PAIN FOLLOW-UP GIVEN PRESENTING SYMPTOMS RECOMMENDED REFERRAL TO [facility] FOR FURTHER EVALUATION. PATIENT HAS EXPRESSED UNDERSTANDING OF AND WAS IN AGREEMENT WITH TREATMENT PLAN. GIVEN TIME TO ASK QUESTIONS AND EXPRESS CONCERNS. , ISTOP REGISTRY REVIEWED AND DEMONSTRATES COMPLLIANCE. (REF # [id number] ) BRINGS IN MEDICATIONS WHICH IS APPROPRIATE FOR WHAT WAS DISPENSED. RECENT URINE TOXICOLOGY REVIEWED. NO UNAUTHORIZED MEDICATIONS. NO ILLICIT SUBSTANCES AND PRESCRIBED MEDICATIONS WERE PRESENT. [facility] REASON:SURGICAL CONSULTATION PROCEDURE CODES FA211 ESTABILISHED PATIENT [facility] FACILITY CHARGE DISPOSITION & COMMUNICATION FOLLOW UP 3 MONTHS (REASON: BACK PAIN ) ELECTRONICALLY SIGNED BY RINA MIRELES ON 12/07/2020 AT 01:10 PM EDT DISCLAIMER : THIS IS A VISIT SUMMARY EXTRACTED FROM THE [employer] CHART. IT IS NOT A COPY OF THE [employer] PROGRESS NOTE. NATE
== END ==
LOC: M PAIN 14:45
PROVIDERS: ATTEND Family Medicine
DX: M51.16 Intervertebral disc disorders with radiculopathy, lumbar region (principal); G89.29 Other chronic pain; Z79.899 Other long term (current) drug therapy

== ENCOUNTER → 2021-03-13 | Outpatient (CLI) | payer BC ==
--- NOTE | 2021-03-15 05:59 | ECWPNPC ---
PATIENT NAME: ROOSEVELT WATKINS : 1965 GENDER: MALE VISIT DATE: 03/13/2021 DISCHARGE DATE: 03/13/21 1446 VISIT LOCKED DATE TIME: PHYSICIAN: JC KAHN PHYSICIAN PAGER NO: ACTIVE RESOURCE: JC KAHN REASON FOR APPOINTMENT 1. BACK PAIN HISTORY OF PRESENT ILLNESS DEPRESSION SCREENING: PHQ-2 (2015 EDITION) LITTLE INTEREST OR PLEASURE IN DOING THINGS?NOT AT ALL FEELING DOWN, DEPRESSED, OR HOPELESS?NOT AT ALL TOTAL SCORE0 GENERAL: HPI CHRONIC PAIN FOLLOW-UP. PATIENT WAS REFERRED TO [facility] AND HE ADMITS THAT THEY REFERRED HIM TO PT WHICH HE SAID WAS MILDLY HELPFUL. HE DOES ADMIT THAT THE [facility] HAS GIVEN HIM A TENS UNIT THAT HE DOES FIND THIS HELPFUL.. -. FALL RISK SCREENING: SCREENING : NO FALLS REPORTED IN THE LAST YEAR. PAIN SCREENING: PATIENT HAS A COMPLAINT OF ACUTE OR CHRONIC PAIN :YES LOCATION OF PAIN:LOW BACK INTENSITY OF PAIN (SCALE OF 1 TO 10):4 WHAT DOES YOUR PAIN FEEL LIKE:ACHING, CONTINOUS, SHARP DURATION:CONTINOUS PAIN IS INCREASED BY:ACTIVITIES PAIN IS DECREASED BY:OTHERS TENS UNIT NURSING NOTE: -. PAIN CENTER INTAKE QUESTIONS: DO YOU HAVE A HISTORY OF MRSA? :NO DO YOU TAKE A BLOOD THINNERS? :NO DO YOU HAVE ANY BLEEDING DISORDERS? :NO ANY NEW NUMBNESS OR WEAKNESS IN YOUR LEGS OR ARMS? :NO ANY PACEMAKER,DEFIBRILLATOR, OR DORSAL COLUMN STIMULATOR? :NO DO YOU HAVE ANY RASHES OR OPEN SORES? :NO ARE YOU ALLERGIC TO IV DYE? :NO ARE YOU DIABETIC? :NO ANY NEW PROBLEMS WITH YOUR MEDICATIONS? :NO HAVE YOU RECEIVED A VACCINE IN THE PAST 30 DAYS? :NO DO YOU PLAN TO RECEIVE A VACCINE IN THE NEXT 21 DAYS? :NO DO YOU NEED ANY PRESCRIPTION? :NO DO YOU TAKE ANY IMMUNOSUPPRESSIVE MEDICATIONS? :NO DO YOU HAVE ANY KIDNEY OR LIVER DISEASE? :NO IS THERE A CHANCE YOU COULD BE ? :NO ARE YOU BREAST FEEDING? :NO CURRENT MEDICATIONS TAKING LISINOPRIL-HYDROCHLOROTHIAZIDE 20-25 MG TABLET 1 TABLET ORALLY ONCE A DAY MEDICATION LIST REVIEWED AND RECONCILED WITH THE PATIENT PAST MEDICAL HISTORY MORBID OBESITY 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, NL T SPINE 09/08 X RAYS 10/10 ECHO NL EF, TRACE MR, MILDLY DILATED LA, ELEVATED CVP, IVC MILDLY ENLARGED HYPERTRIGLYCERIDEMIA DDD HAYFEVER ESSENTIAL HYPERTENSION CHRONIC VENOUS ISUFFICIENCY TINNITUS UMBILICAL HERNIA RIGHT KNEE MENISCUS TEAR ALLERGIES ENVIRONMENTAL: NASAL CONGESTION, ITCHY EYES, SNEEZING - ALLERGY SURGICAL HISTORY X5 R KNEE ACL,ARTHROSCOPIC BACK INJECTIONS X3 ON RIGHT AND LEFT COLONOSCOPY 10/11/18 UMBILICAL HERNIA REPAIR 09/21/19 ACL, MEDIAL MENISCUS REPAIR 12/27/20 SOCIAL HISTORY GENERAL: TOBACCO USE ARE YOU A:NONSMOKER LATEX QUESTIONNAIRE LATEX ALLERGY : HAVE YOU EVER DEVELOPED ANY TYPE OF REACTION AFTER HANDLING LATEX PRODUCTS SUCH RUBBER GLOVES, CONDOMS, DIAPHRAGMS, BALLOONS, SOCKS, OR UNDERWEAR?NO LATEX ALLERGY : HAVE YOU EVER DEVELOPED ANY TYPE OF REACTION DURING OR AFTER DENTAL APPOINTMENT, VAGINAL/RECTAL EXAMINATION, SURGICAL PROCEDURE, OR ANY OTHER EXPOSURE?NO LATEX RISK : HAVE YOU EVER HAD ANY DIFFICULTY BREATHING OR HIVES AFTER EATING OR HANDLING ANY FRUITS, OR VEGETABLES; SUCH KIWI, BANANAS, STONE FRUITS, OR CHESTNUTSNO LATEX RISK : DO YOU HAVE A PREVIOUS PERSONAL HISTORY OF MORE THAN NINE SURGERIES, SPINA BIFIDA, OR REPEATED CATHERIZATIONS? NO LATEX RISK : ARE YOU FREQUENTLY EXPOSED TO LATEX PRODUCTS IN YOUR OCCUPATION?NO DATE ASKED : 03/13/2021 ALCOHOL USE: OCCASIONAL. LUNG CANCER SCREENING SMOKING STATUS:NON SMOKER BMI CARE GOAL FOLLOW-UP ABOVE NORMAL BMI FOLLOW-UPGIVING ENCOURAGEMENT TO EXERCISE ALCOHOL SCREENING DID YOU HAVE A DRINK CONTAINING ALCOHOL IN THE PAST YEAR?YES HOW OFTEN DID YOU HAVE SIX OR MORE DRINKS ON ONE OCCASION IN THE PAST YEAR?NEVER (0 POINTS) HOW MANY DRINKS DID YOU HAVE ON A TYPICAL DAY WHEN YOU WERE DRINKING IN THE PAST YEAR?3 OR 4 (1 POINT) HOW OFTEN DID YOU HAVE A DRINK CONTAINING ALCOHOL IN THE PAST YEAR?MONTHLY OR LESS (1 POINT) POINTS2 INTERPRETATIONNEGATIVE RECREATIONAL DRUG USE DRUG USE?NO CAFFEINE CAFFEINE USE?YES HOW OFTEN AND HOW MUCH? OCCASIONALLY SEXUAL HX HAD SEX IN THE LAST 12 MONTHS (VAGINAL, ORAL, OR ANAL)?YES WITHWOMEN ONLY USE PROTECTION?NO HAVE YOU EVER HAD AN STD?NO HIV / HEP-C SCREENING HIV TEST OFFERED TO PATIENT:YES DATE OFFERED:08/29/2017 TEST ACCEPTED:NO HEP-C TEST OFFERED TO PATIENT:YES DATE OFFERED:08/29/2017 REASON:PATIENT DECLINED PREVIOUSLY DONE TEST ACCEPTED:NO PREVIOUSLY DONE REASON:PATIENT DECLINED BROCHURE PROVIDED TO PATIENTYES ZOROASTRIANISM [id number] SIKH[employer] LANGUAGE LANGUAGES SPOKEN:CANADIAN EDUCATION LEVEL OF EDUCATION:HIGH SCHOOL LEARNING BARRIERS / SPECIAL NEEDS CHANGE FROM LAST VISIT?NO BARRIERS TO LEARNING?NO HEARING IMPAIRED?NO VISION IMPAIRED?YES : CORRECTIVE LENSES FOR READING COGNITIVELY IMPAIRED?NO READINESS TO LEARN?YES LEARNING PREFERENCES?NO LEARNING CAPABILITIES PRESENT?YES EMOTIONAL BARRIERS?NO SPECIAL DEVICES?YES :BRACE RIGHT LEG BRACE SHACTOR HELPER NEEDED?NO DOMESTIC VIOLENCE DO YOU FEEL SAFE IN YOUR ENVIRONMENT?YES 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 MARITAL STATUS: . OTHERS AT HOME: NONE. PATIENT DESCRIBES PAIN :HAVE IT ALL THE TIME, SHARP, SHOOTING FROM 0-10, WHAT LEVEL IS YOUR PAIN TODAY?7 PRECIPITATING FACTORS BENDING OVER ALLEVIATING FACTORS RESTING IMPACT ON FUNCTION YES - PFS REFERRAL NEEDED?NO CLERGY REFERRAL NEEDED?NO PUBLIC HEALTH REFERRAL NEEDED?NO WAS THE PROVIDER NOTIFIED OF ANY PERTINENT INFO? N/A HAS THE PATIENT BEEN EDUCATED REGARDING HIS/HER PLAN OF CARE?YES USING HEATING PAD HAS THE PATIENT BEEN EDUCATED REGARDING PAIN, THE RISK FOR PAIN, THE IMPORTANCE OF EFFECTIVE PAIN MANAGEMENT, AND THE PAIN ASSESSMENT PROCESS?YES ADVANCE DIRECTIVE ADVANCE DIRECTIVE DISCUSSED WITH PATIENT:YES PT DOES NOT HAVE ANY ADVANCED DIRECTIVES AND HE DECLINES INFORMATION ON HCP OR ASSISTANCE AT THIS TIME. HOSPITALIZATION/MAJOR DIAGNOSTIC PROCEDURE SURGERY - RELATED 2003 REVIEW OF SYSTEMS CONSTITUTIONAL: ANY RECENT FEVER NO . CHILLS NO . WEIGHT CHANGE OF UNKNOWN REASONS NO . GASTROENTEROLOGY: NEW UNEXPLAINABLE CHANGES IN BOWEL CONTROL NO . CONSTIPATION NO . GENITOURINARY: ANY NEW CHANGE IN BLADDER CONTROL? NO . NEUROLOGY: NEW ONSET DIZZINESS OR NEUROLOGICAL CHANGES NOT MENTIONED NO . NEW NUMBNESS OR PAIN PATTERNS NOT MENTIONED AND PERTINENT TO TODAY'S VISIT NO . CARDIOLOGY: NEW CHEST PRESSURE NO . PATIENT DENIES NO . RESPIRATORY: UNEXPLAINABLE COUGH NO . NEW SHORTNESS OF BREATH NO . VITAL SIGNS WT 273.6 LBS, HT 71", BMI 38.16 INDEX, BP 143/82 MM HG, HR 77 /MIN, RR 18 /MIN, TEMP 98.0 F, OXYGEN SAT % 97%, SAFE IN ENV? (Y/N) YES, NA INITIALS MT 14:24, REVIEWED BY: Natali HAMMONDS RN. EXAMINATION GENERAL EXAMINATION: GENERALNO ACUTE DISTRESS, WELL NOURISHED AND HYDRATED. PSYCHAPPROPRIATE MOOD AND AFFECT . LUNGS:CLEAR TO AUSCULTATION BILATERALLY, NO WHEEZES, RHONCHI, RALES. HEART:NO MURMURS, REGULAR RATE AND RHYTHM. ASSESSMENTS SPONDYLOSIS OF LUMBOSACRAL REGION WITHOUT MYELOPATHY OR RADICULOPATHY - M47.817 (PRIMARY), RISK: (NULL) TREATMENT SPONDYLOSIS OF LUMBOSACRAL REGION WITHOUT MYELOPATHY OR RADICULOPATHY NOTES: 55-YEAR-OLD MALE IN FOR CHRONIC PAIN FOLLOW-UP. GIVEN PRESENTING SYMPTOMS RECOMMEND FOLLOW-UP IN 3 MONTHS. PATIENT HAS EXPRESSED UNDERSTANDING OF AND WAS IN AGREEMENT WITH TREATMENT PLAN. GIVEN TIME TO ASK QUESTIONS AND EXPRESS CONCERNS. PROCEDURE CODES FA211 ESTABILISHED PATIENT [facility] FACILITY CHARGE DISPOSITION & COMMUNICATION FOLLOW UP 3 MONTHS (REASON: LOW BACK PAIN ) ELECTRONICALLY SIGNED BY RINA MIRELES ON 03/14/2021 AT 08:45 AM EDT DISCLAIMER : THIS IS A VISIT SUMMARY EXTRACTED FROM THE [employer] CHART. IT IS NOT A COPY OF THE [employer] PROGRESS NOTE. NATE
== END ==
LOC: M PAIN 14:30
PROVIDERS: ATTEND Family Medicine
DX: M47.817 Spondylosis without myelopathy or radiculopathy, lumbosacral region (principal); G89.29 Other chronic pain; Z79.899 Other long term (current) drug therapy

== ENCOUNTER → 2021-09-08 | Outpatient (CLI) | payer BC | LOC: M PAIN 14:15 | PROVIDERS: ATTEND Anesthesiology | DX: M54.50 Low back pain, unspecified (principal); M79.18 Myalgia, other site; E66.01 Morbid (severe) obesity due to excess calories; Z68.36 Body mass index [BMI] 36.0-36.9, adult; E78.1 Pure hyperglyceridemia; I10 Essential (primary) hypertension; I87.2 Venous insufficiency (chronic) (peripheral); J30.1 Allergic rhinitis due to pollen; E55.9 Vitamin D deficiency, unspecified; Z79.899 Other long term (current) drug therapy ==

== ENCOUNTER → 2021-10-02 | Outpatient (REF) | payer BC ==
[~2021-10-02] MED LIST changes: -LISI20TA20 PO; +LISI20TA37 PO
[2021-10-02 16:24] LABS: BASO # 0.1 10^3/uL (0.0-0.2); BASO % 0.7 % (0.0-1.0); EOS # 0.3 10^3/uL (0.0-0.5); EOS % 3.3 % (0.0-3.0); HEMATOCRIT 43.1 % (42.0-52.0); HEMOGLOBIN 14.3 g/dl (13.5-17.5); LYMPH # 3.4 10^3/uL (1.5-5.0); LYMPH % 36.6 % (24.0-44.0); MEAN CORPUSCULAR HEMOGLOBIN 31.5 pg (27.0-33.0); MEAN CORPUSCULAR HGB CONC 33.2 g/dl (32.0-36.5); MEAN CORPUSCULAR VOLUME 94.9 fl (80.0-96.0); MONO # 0.9 10^3/uL (0.0-0.8); MONO % 9.1 % (2.0-8.0); NEUTROPHILS # 4.7 10^3/uL (1.5-8.5); NEUTROPHILS % 49.8 % (36.0-66.0); PLATELET COUNT, AUTOMATED 321 10^3/uL (150-450); RED BLOOD COUNT 4.54 10^6/uL (4.30-6.10); WHITE BLOOD COUNT 9.4 10^3/uL (4.0-10.0)
[2021-10-02 16:53] LABS: ALBUMIN 3.6 GM/DL (3.2-5.2); ALT/SGPT 40 U/L (12-78); BILIRUBIN,TOTAL 0.5 MG/DL (0.2-1.0); BLOOD UREA NITROGEN 14 MG/DL (7-18); CALCIUM LEVEL 9.2 MG/DL (8.5-10.1); CARBON DIOXIDE LEVEL 26 MEQ/L (21-32); CHLORIDE LEVEL 107 MEQ/L (98-107); CHOLESTEROL LEVEL 163 MG/DL (<200); CHOLESTEROL RISK RATIO 5.093 (<5); CREATININE FOR GFR 1.06 MG/DL (0.70-1.30); GLOMERULAR FILTRATION RATE > 60.0 (>56); GLUCOSE, FASTING 84 MG/DL (70-100); HDL CHOLESTEROL 32 MG/DL (>40); NON-HDL-C 131 MG/DL; POTASSIUM SERUM 4.7 MEQ/L (3.5-5.1); SODIUM LEVEL 141 MEQ/L (136-145); TOTAL PROTEIN 7.1 GM/DL (6.4-8.2); TRIGLYCERIDES LEVEL 407 MG/DL (<150)
== END ==
LOC: M SFHCADAM 11:30
PROVIDERS: ATTEND Physician Assistant Medical
DX: I10 Essential (primary) hypertension (principal); E66.01 Morbid (severe) obesity due to excess calories; E78.1 Pure hyperglyceridemia

== ENCOUNTER → 2021-10-31 | Outpatient (CLI) | payer BC ==
[~2021-10-31] MED LIST changes: +BUPIVACAINE HCL 0.25% 10ML VIAL As Ordered ONE; +BUPIVACAINE HCL 0.25% 30ML VIAL As Ordered ONE; +TRIAMCINOLONE ACETONIDE SUSP 40 MG/ML VIAL (J3301) As Ordered ONE; +diazePAM 5MG TABLET As Ordered ONE; +oxyCODONE 5MG TAB As Ordered ONE
== END ==
LOC: M PAIN 14:00
PROVIDERS: ATTEND Anesthesiology
DX: M79.18 Myalgia, other site (principal); E55.9 Vitamin D deficiency, unspecified; Z79.899 Other long term (current) drug therapy
CPT/HCPCS: 20552; J3301

== ENCOUNTER → 2021-11-28 | Outpatient (CLI) | payer BC ==
[~2021-11-28] MED LIST changes: -BUPIVACAINE HCL 0.25% 10ML VIAL As Ordered ONE; -BUPIVACAINE HCL 0.25% 30ML VIAL As Ordered ONE; -TRIAMCINOLONE ACETONIDE SUSP 40 MG/ML VIAL (J3301) As Ordered ONE; -diazePAM 5MG TABLET As Ordered ONE; -oxyCODONE 5MG TAB As Ordered ONE
== END ==
LOC: M PAIN 14:15
PROVIDERS: ATTEND Nurse Practitioner Family
DX: M79.10 Myalgia, unspecified site (principal); E55.9 Vitamin D deficiency, unspecified; Z79.899 Other long term (current) drug therapy

== ENCOUNTER → 2021-12-28 | Outpatient (CLI) | payer BC | LOC: M PLAIMG 10:17 | PROVIDERS: ATTEND Anesthesiology | DX: M54.59 Other low back pain (principal) ==

== ENCOUNTER → 2022-01-09 | Outpatient (CLI) | payer BC | LOC: M PAIN 10:15 | PROVIDERS: ATTEND Nurse Practitioner Family | DX: M51.16 Intervertebral disc disorders with radiculopathy, lumbar region (principal); G89.29 Other chronic pain; E55.9 Vitamin D deficiency, unspecified; Z79.899 Other long term (current) drug therapy | CPT/HCPCS: 76000; G0463 ==

== ENCOUNTER → 2022-03-14 | Outpatient (REF) | payer BC, OTHER ==
[2022-03-14 13:18] LABS: HEMATOCRIT 41.6 % (42.0-52.0); HEMOGLOBIN 14.1 g/dl (13.5-17.5); MEAN CORPUSCULAR HEMOGLOBIN 31.3 pg (27.0-33.0); MEAN CORPUSCULAR HGB CONC 33.9 g/dl (32.0-36.5); MEAN CORPUSCULAR VOLUME 92.4 fl (80.0-96.0); PLATELET COUNT, AUTOMATED 294 10^3/uL (150-450)
[2022-03-14 13:49] LABS: ALBUMIN 3.5 GM/DL (3.2-5.2); ALT/SGPT 43 U/L (12-78); BILIRUBIN,TOTAL 0.5 MG/DL (0.2-1.0); BLOOD UREA NITROGEN 19 MG/DL (7-18); CALCIUM LEVEL 9.2 MG/DL (8.5-10.1); CARBON DIOXIDE LEVEL 26 MEQ/L (21-32); CHLORIDE LEVEL 107 MEQ/L (98-107); CREATININE FOR GFR 1.02 MG/DL (0.70-1.30); GLOMERULAR FILTRATION RATE > 60.0 (>56); GLUCOSE, FASTING 107 MG/DL (70-100); POTASSIUM SERUM 4.2 MEQ/L (3.5-5.1); SODIUM LEVEL 140 MEQ/L (136-145); TOTAL PROTEIN 6.8 GM/DL (6.4-8.2)
== END ==
LOC: M SFHCADAM 10:58
PROVIDERS: ATTEND Family Medicine
DX: K57.92 Diverticulitis of intestine, part unspecified, without perforation or abscess without bleeding (principal)

== ENCOUNTER → 2022-03-15 | Outpatient (CLI) | payer BC ==
[~2022-03-15] MED LIST changes: +GASTROGRAFIN SOLUTION 30ML (Q9963) As Ordered ONE; +ISOVUE-370 76% 100ML VIAL As Ordered ONE
== END ==
LOC: M RAD 10:31
PROVIDERS: ATTEND Family Medicine
DX: K57.32 Diverticulitis of large intestine without perforation or abscess without bleeding (principal)
CPT/HCPCS: 74177; Q9963; Q9967

== ENCOUNTER → 2022-08-02 | Outpatient (CLI) | payer BC ==
[~2022-08-02] MED LIST changes: -GASTROGRAFIN SOLUTION 30ML (Q9963) As Ordered ONE; -ISOVUE-370 76% 100ML VIAL As Ordered ONE
== END ==
LOC: M LABSMTC 10:51
PROVIDERS: ATTEND Anesthesiology
DX: Z01.812 Encounter for preprocedural laboratory examination (principal); Z11.52 Encounter for screening for COVID-19

== ENCOUNTER → 2022-08-07 | Outpatient (CLI) | payer BC, OTHER ==
[~2022-08-07] MED LIST changes: +BUPIVACAINE HCL 0.25% 30ML VIAL As Ordered ONE; +ISOVUE-M 300 61% 15ML VIAL As Ordered ONE; +LIDOCAINE 1% SDV 30ML VIAL As Ordered ONE; +dexameTHASONE 10MG/1ML VIAL PRES.FREE (J1100 PER 1MG) As Ordered ONE; +diazePAM 5MG TABLET As Ordered ONE; +oxyCODONE 5MG TAB As Ordered ONE
== END ==
LOC: M PAIN 11:00
PROVIDERS: ATTEND Anesthesiology
DX: M51.16 Intervertebral disc disorders with radiculopathy, lumbar region (principal); G89.29 Other chronic pain; I10 Essential (primary) hypertension; E55.9 Vitamin D deficiency, unspecified; Z79.899 Other long term (current) drug therapy
CPT/HCPCS: 64483; J1100; Q9967

== ENCOUNTER → 2022-08-29 | Outpatient (CLI) | payer BC, OTHER ==
[~2022-08-29] MED LIST changes: -BUPIVACAINE HCL 0.25% 30ML VIAL As Ordered ONE; -ISOVUE-M 300 61% 15ML VIAL As Ordered ONE; -LIDOCAINE 1% SDV 30ML VIAL As Ordered ONE; -dexameTHASONE 10MG/1ML VIAL PRES.FREE (J1100 PER 1MG) As Ordered ONE; -diazePAM 5MG TABLET As Ordered ONE; -oxyCODONE 5MG TAB As Ordered ONE
== END ==
LOC: M PAIN 10:45
PROVIDERS: ATTEND Anesthesiology
DX: M54.50 Low back pain, unspecified (principal); M51.16 Intervertebral disc disorders with radiculopathy, lumbar region; G89.29 Other chronic pain; I10 Essential (primary) hypertension; E55.9 Vitamin D deficiency, unspecified; Z79.899 Other long term (current) drug therapy

== ENCOUNTER → 2022-09-11 | Outpatient (CLI) | payer BC, OTHER | LOC: M PAIN 09:00 | PROVIDERS: ATTEND Anesthesiology | DX: M51.16 Intervertebral disc disorders with radiculopathy, lumbar region (principal); M47.816 Spondylosis without myelopathy or radiculopathy, lumbar region; G89.29 Other chronic pain; I10 Essential (primary) hypertension; E55.9 Vitamin D deficiency, unspecified; Z79.899 Other long term (current) drug therapy | CPT/HCPCS: 76000; G0463 ==

== ENCOUNTER → 2022-10-26 | Outpatient (CLI) | payer BC, OTHER ==
[~2022-10-26] MED LIST changes: +BUPIVACAINE HCL 0.25% 30ML VIAL As Ordered ONE; +ISOVUE-M 300 61% 15ML VIAL As Ordered ONE; +LIDOCAINE 1% SDV 30ML VIAL As Ordered ONE
== END ==
LOC: M PAIN 14:00
PROVIDERS: ATTEND Anesthesiology
DX: M47.816 Spondylosis without myelopathy or radiculopathy, lumbar region (principal); G89.29 Other chronic pain; I10 Essential (primary) hypertension; E55.9 Vitamin D deficiency, unspecified; Z79.899 Other long term (current) drug therapy
CPT/HCPCS: 64493; 64494; 87635; Q9967

== ENCOUNTER → 2022-10-26 | Outpatient (CLI) | payer OTHER ==
[~2022-10-26] MED LIST changes: -BUPIVACAINE HCL 0.25% 30ML VIAL As Ordered ONE; -ISOVUE-M 300 61% 15ML VIAL As Ordered ONE; -LIDOCAINE 1% SDV 30ML VIAL As Ordered ONE
== END ==
LOC: M LABSMTC 11:50
PROVIDERS: ATTEND Anesthesiology
DX: Z01.812 Encounter for preprocedural laboratory examination (principal); Z11.52 Encounter for screening for COVID-19

== ENCOUNTER → 2022-11-08 | Outpatient (CLI) | payer BC, OTHER | LOC: M PAIN 14:15 | PROVIDERS: ATTEND Anesthesiology | DX: M47.816 Spondylosis without myelopathy or radiculopathy, lumbar region (principal); G89.29 Other chronic pain; I10 Essential (primary) hypertension; E55.9 Vitamin D deficiency, unspecified; Z79.899 Other long term (current) drug therapy ==

== ENCOUNTER → 2022-12-07 | Outpatient (CLI) | payer BC | LOC: M LABSMTC 11:36 | PROVIDERS: ATTEND Anesthesiology | DX: Z01.812 Encounter for preprocedural laboratory examination (principal) ==

== ENCOUNTER → 2022-12-12 | Outpatient (CLI) | payer OTHER ==
[~2022-12-12] MED LIST changes: +BUPIVACAINE HCL 0.25% 30ML VIAL As Ordered ONE; +ISOVUE-M 300 61% 15ML VIAL As Ordered ONE; +LIDOCAINE 1% SDV 30ML VIAL As Ordered ONE
== END ==
LOC: M PAIN 10:30
PROVIDERS: ATTEND Anesthesiology
DX: M47.817 Spondylosis without myelopathy or radiculopathy, lumbosacral region (principal); G89.29 Other chronic pain; I10 Essential (primary) hypertension; E55.9 Vitamin D deficiency, unspecified; Z79.899 Other long term (current) drug therapy
CPT/HCPCS: 64493; 64494; Q9967

== ENCOUNTER → 2022-12-27 | Outpatient (CLI) | payer OTHER ==
[~2022-12-27] MED LIST changes: -BUPIVACAINE HCL 0.25% 30ML VIAL As Ordered ONE; -ISOVUE-M 300 61% 15ML VIAL As Ordered ONE; -LIDOCAINE 1% SDV 30ML VIAL As Ordered ONE
== END ==
LOC: M PAIN 09:45
PROVIDERS: ATTEND Anesthesiology
DX: M46.96 Unspecified inflammatory spondylopathy, lumbar region (principal); M47.816 Spondylosis without myelopathy or radiculopathy, lumbar region; G89.29 Other chronic pain; I10 Essential (primary) hypertension; E55.9 Vitamin D deficiency, unspecified; Z79.899 Other long term (current) drug therapy

== ENCOUNTER → 2023-02-26 | Outpatient (CLI) | payer OTHER ==
[~2023-02-26] MED LIST changes: +BUPIVACAINE HCL 0.25% 30ML VIAL As Ordered ONE; +LIDOCAINE 1% SDV 30ML VIAL As Ordered ONE; +diazePAM 5MG TABLET As Ordered ONE; +oxyCODONE 5MG TAB As Ordered ONE
== END ==
LOC: M PAIN 13:30
PROVIDERS: ATTEND Anesthesiology
DX: M47.816 Spondylosis without myelopathy or radiculopathy, lumbar region (principal); G89.29 Other chronic pain; I10 Essential (primary) hypertension; E55.9 Vitamin D deficiency, unspecified; Z79.899 Other long term (current) drug therapy
CPT/HCPCS: 64635; 64636; J1100

== ENCOUNTER → 2023-04-03 | Outpatient (CLI) | payer OTHER ==
[~2023-04-03] MED LIST changes: -BUPIVACAINE HCL 0.25% 30ML VIAL As Ordered ONE; -LIDOCAINE 1% SDV 30ML VIAL As Ordered ONE; -diazePAM 5MG TABLET As Ordered ONE; -oxyCODONE 5MG TAB As Ordered ONE
== END ==
LOC: M PAIN 14:30
PROVIDERS: ATTEND Anesthesiology
DX: M47.817 Spondylosis without myelopathy or radiculopathy, lumbosacral region (principal); M46.96 Unspecified inflammatory spondylopathy, lumbar region; G89.29 Other chronic pain; I10 Essential (primary) hypertension; E55.9 Vitamin D deficiency, unspecified; Z79.899 Other long term (current) drug therapy

== ENCOUNTER 2023-12-20 09:40 | Emergency (ER) | payer OTHER ==
[~2023-12-20] VITALS: Ht 180.3 cm; Wt 117.7 kg
[2023-12-20] MEDS: ONDANSETRON 4MG 2ML VIAL IV ONE (10:13)
[2023-12-20] MEDS: MAALOX 30 ML SUSP *UDC PO ONE (10:13)
[2023-12-20] MEDS: MORPHINE 4 MG/ML 1ML VIAL IV PRN (10:14)
[2023-12-20 10:20] LABS: BASO # 0.1 10^3/uL (0.0-0.2); BASO % 0.7 % (0.0-1.0); EOS # 0.5 10^3/uL (0.0-0.5); EOS % 5.4 % (0.0-3.0); HEMATOCRIT 44.4 % (42.0-52.0); HEMOGLOBIN 15.4 g/dl (13.5-17.5); LYMPH # 2.8 10^3/uL (1.5-5.0); LYMPH % 33.5 % (24.0-44.0); MEAN CORPUSCULAR HEMOGLOBIN 32.2 pg (27.0-33.0); MEAN CORPUSCULAR HGB CONC 34.7 g/dl (32.0-36.5); MEAN CORPUSCULAR VOLUME 92.7 fl (80.0-96.0); MONO # 0.8 10^3/uL (0.0-0.8); MONO % 9.6 % (2.0-8.0); NEUTROPHILS # 4.2 10^3/uL (1.5-8.5); NEUTROPHILS % 50.3 % (36.0-66.0); PLATELET COUNT, AUTOMATED 314 10^3/uL (150-450); RED BLOOD COUNT 4.79 10^6/uL (4.30-6.10); WHITE BLOOD COUNT 8.3 10^3/uL (4.0-10.0)
[2023-12-20 10:31] LABS: INR 1.05; PARTIAL THROMBOPLASTIN TIME 28.2 SECONDS (24.8-34.2); PROTHROMBIN TIME 13.4 SECONDS (12.5-14.5)
[2023-12-20] MEDS ORDERED: ISOVUE-370 76% 100ML VIAL As Ordered ONE (10:35)
[2023-12-20 10:44] LABS: CK-MB VALUE MASS 3.4 NG/ML (<3.6); LIPASE 41 U/L (12-53)
[2023-12-20 10:46] LABS: ALBUMIN 3.9 G/DL (3.2-5.2); ALKALINE PHOSPHATASE 66 U/L (46-116); ALT/SGPT 34 U/L (7.0-40); AST/SGOT 26 U/L (<34); BILIRUBIN,DIRECT 0.2 MG/DL (<0.4); BLOOD UREA NITROGEN 16 MG/DL (9-23); CALCIUM LEVEL 9.1 MG/DL (8.5-10.1); CARBON DIOXIDE LEVEL 25 MMOL/L (20-31); CHLORIDE LEVEL 107 MMOL/L (98-107); CREATININE FOR GFR 0.97 MG/DL (0.70-1.30); GLOMERULAR FILTRATION RATE > 60.0 (>56); GLUCOSE, FASTING 98 MG/DL (60-100); POTASSIUM SERUM 4.4 MMOL/L (3.5-5.1); SODIUM LEVEL 140 MMOL/L (136-145); TOTAL PROTEIN 7.1 G/DL (5.7-8.2)
[2023-12-20 10:48] LABS: THYROID STIMULATING HORMONE 2.214 uIU/ML (0.55-4.78)
[2023-12-20 10:50] LABS: CPK CREATINE PHOSPHOKINASE 283 U/L (46-171)
[2023-12-20] MEDS ORDERED: HOME MED LIST COMPLETE! XX SCH (11:10)
[2023-12-20 12:01] LABS: CK-MB VALUE MASS 3.2 NG/ML (<3.6)
[2023-12-20 12:03] LABS: MB/CK RELATIVE INDEX 1.31 (< OR =4)
[2023-12-20] MEDS ORDERED: ASPI81TA26 PO (15:49)
[2023-12-20] MEDS ORDERED: OMEP40CA4 PO (15:49)
[2023-12-20] MEDS ORDERED: ASPIRIN 325 MG TAB PO ONE (15:50)
[2023-12-20] MEDS: ASPIRIN 81MG CHEW TABLET PO ONE (16:17)
[2023-12-20 16:41] VITALS: BP 131/66; TEMP 97.9; O2SAT 96
== END 2023-12-20 16:00 | disposition home or self-care (01) ==
LOC: EDBD 09:40 → M ED 11:32
DX: R07.9 Chest pain, unspecified (principal); R10.9 Unspecified abdominal pain; R20.2 Paresthesia of skin; F10.10 Alcohol abuse, uncomplicated; I10 Essential (primary) hypertension; Z79.811 Long term (current) use of aromatase inhibitors; Z79.82 Long term (current) use of aspirin; Z79.83 Long term (current) use of bisphosphonates
CPT/HCPCS: 70450; 70498; 70544; 70551; 71045; 71275; 74177; 80047; 80048; 80076; 82550; 82553; 83690; 83880; 84439; 84443; 84484; 85025; 85610; 85730; 93005; 93041; 94760; 96374; 96375; 99285; J2405; Q9967

== ENCOUNTER → 2025-02-02 | Outpatient (REF) | payer BC, OTHER ==
[~2025-02-02] MED LIST changes: +ASPI81TA26 PO; +OMEP40CA4 PO
[2025-02-02 13:48] LABS: BASO # 0.1 10^3/uL (0.0-0.2); BASO % 0.6 % (0.0-1.0); EOS # 0.4 10^3/uL (0.0-0.5); EOS % 5.2 % (0.0-3.0); HEMOGLOBIN 13.7 g/dl (13.5-17.5); LYMPH # 2.7 10^3/uL (1.5-5.0); MEAN CORPUSCULAR HEMOGLOBIN 31.2 pg (27.0-33.0); MEAN CORPUSCULAR HGB CONC 32.6 g/dl (32.0-36.5); MEAN CORPUSCULAR VOLUME 95.7 fl (80.0-96.0); MONO # 0.9 10^3/uL (0.0-0.8); MONO % 11.6 % (2.0-8.0); NEUTROPHILS # 3.8 10^3/uL (1.5-8.5); NEUTROPHILS % 48.2 % (36.0-66.0); PLATELET COUNT, AUTOMATED 295 10^3/uL (150-450); RED BLOOD COUNT 4.39 10^6/uL (4.30-6.10)
[2025-02-02 13:51] LABS: ALBUMIN 3.8 G/DL (3.2-5.2); C REACTIVE PROTEIN QUANTITATIV 0.65 MG/DL (<1.0); CHOLESTEROL RISK RATIO 3.08 (<5); CREATININE FOR GFR 1.23 MG/DL (0.70-1.30); GLOMERULAR FILTRATION RATE 67.6 (>56); HDL CHOLESTEROL 37.6 MG/DL (>40); LDL CHOLESTEROL 50.4 MG/DL (<100); NON-HDL-C 78.4 MG/DL; POTASSIUM SERUM 4.8 MMOL/L (3.5-5.1); TOTAL PROTEIN 6.6 G/DL (5.7-8.2)
[2025-02-02 13:54] LABS: FREE T4 1.15 NG/DL (0.89-1.76)
[2025-02-02 13:55] LABS: THYROID STIMULATING HORMONE 2.402 uIU/ML (0.55-4.78); TOTAL 25(OH) VITAMIN D 32.9 NG/ML (20.0-100.0)
[2025-02-02 14:05] LABS: ERYTHROCYTE SEDIMENTATION RATE 13 mm/hr (0-20)
[2025-02-02 14:08] LABS: HEMOGLOBIN A1c 5.5 % (4.0-6.0)
[2025-02-05 14:19] LABS: LYME TOTAL ANTIBODY CIA <= 0.90 Index (<=0.90)
== END ==
LOC: M SFHCADAM 08:28
PROVIDERS: ATTEND Physician Assistant Medical
DX: K76.0 Fatty (change of) liver, not elsewhere classified (principal); E66.01 Morbid (severe) obesity due to excess calories; E78.1 Pure hyperglyceridemia; I10 Essential (primary) hypertension; R53.83 Other fatigue; M25.50 Pain in unspecified joint

== ENCOUNTER → 2025-04-26 | Outpatient (CLI) | payer BC ==
[~2025-04-26] MED LIST changes: +GADOXETATE DISODIUM 2.5 MMOL/10 ML VIAL ONE
== END ==
LOC: M PLAIMG 12:32
PROVIDERS: ATTEND Physician Assistant Medical
DX: R93.2 Abnormal findings on diagnostic imaging of liver and biliary tract (principal); K76.0 Fatty (change of) liver, not elsewhere classified
CPT/HCPCS: 74183; A9581

== ENCOUNTER → 2025-05-27 | Outpatient (CLI) | payer BC ==
[~2025-05-27] MED LIST changes: -GADOXETATE DISODIUM 2.5 MMOL/10 ML VIAL ONE
== END ==
LOC: M WHC 08:20
PROVIDERS: ATTEND Physician Assistant Medical
DX: R93.2 Abnormal findings on diagnostic imaging of liver and biliary tract (principal)